=== PATIENT | female | born 1940 | race Caucasian/White ===

== ENCOUNTER → 2023-11-12 07:47 | Outpatient (REF) | payer OTHER, SELFPAY | LOC: PET 07:47 | PROVIDERS: ATTENDING PHYSICIAN Internal Medicine Hematology & Oncology | DX: C85.91 Non-Hodgkin lymphoma, unspecified, lymph nodes of head, face, and neck (principal) | CPT/HCPCS: 78815; A9552 ==

== ENCOUNTER → 2024-01-12 10:36 | Outpatient (REF) | payer OTHER, SELFPAY | LOC: HWRAD 10:36 | PROVIDERS: ATTENDING PHYSICIAN Otolaryngology; FAMILY PHYSICIAN Internal Medicine | DX: J32.0 Chronic maxillary sinusitis (principal) | CPT/HCPCS: 70486 ==

== ENCOUNTER → 2024-03-31 09:55 | Outpatient (REF) | payer OTHER, SELFPAY ==
[2024-03-31 13:03] LABS: % Basophils 0.5 % (0-2); % Eosinophils 2.2 % (0-6); % Immature Granulocytes 0.2 % (0-0.5); % Lymphocytes 17.4 % (20.5-51.1); % Monocytes 7.2 % (1.7-9.3); % Neutrophils 72.5 % (42.2-75.2); Absolute Eosinophils 0.1 10^3/uL (0-0.7); Absolute Monocytes 0.4 10^3/uL (0.1-0.6); Absolute Neutrophils 4.3 10^3/uL (1.4-6.5); Hematocrit 36.9 % (37.0-47.0); Hemoglobin 11.7 g/dL (12.0-16.0); Mean Corp Hgb Conc. 31.7 g/dL (33.0-37.0); Mean Corpuscular Hgb 28.1 pg (27.0-31.0); Mean Corpuscular Volume 88.7 fL (81.0-99.0); Mean Platelet Volume 10.9 fL (7.4-10.4); Nucleated Red Blood Cells % 0 %; Platelet Count 202 10^3/uL (130-400); Red Blood Cell Count 4.16 10^6/uL (4.20-5.40); Red Cell Dist. Width 14.1 % (11.5-14.5)
[2024-03-31 13:21] LABS: ALT (SGPT) 20 U/L (0-35); AST (SGOT) 25 U/L (14-36); Albumin 3.9 g/dl (3.5-5.0); Alkaline Phosphatase 132 U/L (38-126); Blood Urea Nitrogen 18 mg/dl (7-17); Carbon Dioxide 29 mmol/L (22-30); Chloride 102 mmol/L (98-107); Glucose 87 mg/dl (70-99); LDH 184 U/L (120-246); Potassium 4.5 mmol/L (3.5-5.1); Sodium 137 mmol/L (135-145); Total Bilirubin 0.4 mg/dl (0.2-1.3); Total Protein 6.4 g/dl (6.3-8.2); Uric Acid 4.6 mg/dl (2.5-6.2); eGFR > 60.00
== END ==
LOC: HWLAB 09:55
PROVIDERS: ATTENDING PHYSICIAN Internal Medicine Hematology & Oncology; FAMILY PHYSICIAN Internal Medicine
DX: C85.91 Non-Hodgkin lymphoma, unspecified, lymph nodes of head, face, and neck (principal); D64.81 Anemia due to antineoplastic chemotherapy
CPT/HCPCS: 36415; 80053; 83615; 84550; 85025

== ENCOUNTER → 2024-06-10 10:44 | Outpatient (REF) | payer OTHER, SELFPAY | LOC: PAVMRI 10:44 | PROVIDERS: ATTENDING PHYSICIAN Psychiatry & Neurology Neurology; FAMILY PHYSICIAN Internal Medicine | DX: R51.9 Headache, unspecified (principal); G50.0 Trigeminal neuralgia | CPT/HCPCS: 70544; 70549; 70553; A9585 ==

== ENCOUNTER → 2024-06-28 09:40 | Outpatient (REF) | payer OTHER, SELFPAY ==
[2024-06-28 11:53] LABS: % Basophils 0.4 % (0-2); % Eosinophils 2.3 % (0-6); % Immature Granulocytes 0.4 % (0-0.5); % Lymphocytes 16.2 % (20.5-51.1); % Monocytes 6.3 % (1.7-9.3); % Neutrophils 74.4 % (42.2-75.2); Absolute Eosinophils 0.1 10^3/uL (0-0.7); Absolute Lymphocytes 0.9 10^3/uL (1.2-3.4); Absolute Monocytes 0.3 10^3/uL (0.1-0.6); Absolute Neutrophils 3.9 10^3/uL (1.4-6.5); Hematocrit 36.5 % (37.0-47.0); Hemoglobin 12.2 g/dL (12.0-16.0); Mean Corp Hgb Conc. 33.4 g/dL (33.0-37.0); Mean Corpuscular Hgb 27.4 pg (27.0-31.0); Mean Corpuscular Volume 81.8 fL (81.0-99.0); Mean Platelet Volume 10.9 fL (7.4-10.4); Nucleated Red Blood Cells % 0 %; Platelet Count 217 10^3/uL (130-400); Red Blood Cell Count 4.46 10^6/uL (4.20-5.40); White Blood Cell Count 5.3 10^3/uL (4.8-10.8)
[2024-06-28 12:12] LABS: ALT (SGPT) 21 U/L (0-35); AST (SGOT) 25 U/L (14-36); Alkaline Phosphatase 143 U/L (38-126); Blood Urea Nitrogen 13 mg/dl (7-17); Calcium 9.3 mg/dl (8.4-10.2); Carbon Dioxide 26 mmol/L (22-30); Chloride 98 mmol/L (98-107); Glucose 95 mg/dl (70-99); HDL Cholesterol 72 mg/dl; LDL Cholesterol, Calculated 105 mg/dl; Potassium 4.4 mmol/L (3.5-5.1); Sodium 135 mmol/L (135-145); Total Bilirubin 0.5 mg/dl (0.2-1.3); Total Cholesterol 198 mg/dl (50-199); Total Protein 6.3 g/dl (6.3-8.2); Triglyceride 105 mg/dl (10-149); Very Low Density Lipoprotein 21 mg/dl (0-30); eGFR > 60.00
[2024-06-28 12:19] LABS: Total Thyroxine 7.55 ug/dl (5.5-11.0)
[2024-06-28 12:32] LABS: TSH 2.25 uIU/ml (0.47-4.68)
== END ==
LOC: HWLAB 09:40
PROVIDERS: ATTENDING PHYSICIAN Psychiatry & Neurology Neurology; FAMILY PHYSICIAN Internal Medicine
DX: I65.21 Occlusion and stenosis of right carotid artery (principal); C85.90 Non-Hodgkin lymphoma, unspecified, unspecified site; M54.2 Cervicalgia; I10 Essential (primary) hypertension; E03.9 Hypothyroidism, unspecified
CPT/HCPCS: 36415; 80053; 80061; 84436; 84443; 85025

== ENCOUNTER 2024-08-05 23:24 | Inpatient (IN) | payer OTHER, SELFPAY ==
[2024-08-05 19:31] VITALS: BP 203/111
--- NOTE | 2024-08-05 19:56 | ED.GENMED ---
History of Present Illness
General
Chief Complaint: Headache
Time Seen by Provider: 08/05/24 19:46
History of Present Illness
History of Present Illness:
84-year-old female with history of migraines presents to the emergency department for evaluation of a severe migraine headache that began last night and gradually worsened today. She has had nausea and vomiting as well. Vomiting is atypical for
her normal migraines. Took ibuprofen last night without relief. No fevers or chills, denies neck pain, chest pain, or shortness of breath. Did take 2 doses of triamterene/hydrochlorothiazide this week due to leg swelling.
Past History
Past History
ED Past Medical History: HTN; Negative Hypercholesterolemia or IDDM
ED Past Surgical History: Negative Cardiac, or Gynecological
Social History
Tobacco: Non-smoker
Alcohol: None
Drug: None
Personal:
Living: with family
Employment: Not employed
Family History
Family History: Hypertension
Review of Systems
Review of Systems
Allergies reviewed?: Yes
All Other Systems: ROS reviewed and negative except as documented in HPI and ROS
Phy Exam
Physical Exam
Physical Exam:
GEN: Well appearing, NAD, WDWN
HEENT: Oral mucosa moist, no scleral icterus, no nasal congestion
Cardiac: Regular rate
Lung: No respiratory distress, no tachypnea
MSK: No gross deformity or injuries
Skin: Good color, no pallor or jaundice, no rashes
Neuro: AO x3; CN II-XII grossly intact. BUE strength 5/5 in all light, sensation intact and symmetric. BLE strength 5/5 in all light, sensation intact and symmetric
Psych: Calm, cooperative
Course
Orders/Labs/Results
Orders:
Orders
08/05/24 19:55
CT Head W/o Iv Contrast Urgent
Comment:
Reason For Exam: headache
Ketorolac [Toradol] 15 mg IV NOW STA
Magnesium Sulfate 2 Gram/50 ml [Magnesium Sulfate] 2 gram in 50 ml IV NOW
Metoclopramide [Reglan] 10 mg IV NOW STA
08/05/24 20:15
Complete Blood Count/With Diff Urgent
Comprehensive Metabolic Panel Urgent
Serum Osmolality Urgent
Comment: ADD ON
TSH Reflex To Free T4 Urgent
Comment: ADD ON
08/05/24 21:06
Add On- LAB Urgent
Tests Added?: serum osmolality, TSH w/ reflex
Osmolality, Random Urine Urgent
Date Specimen was Collected: 08/05/24
Time Specimen was Collected: 21:12
Urine Sodium Urgent
Date Specimen was Collected: 08/05/24
Time Specimen was Collected: 21:12
08/05/24 21:07
Urinalysis Reflex To Culture Urgent
Date Specimen was Collected: 08/05/24
Time Specimen was Collected: 21:12
Abnormal Lab Results
08/05/24
20:15
Hgb 11.9 L g/dL
(12.0-16.0)
Hct 32.8 L %
(37.0-47.0)
MCV 75.9 L fL
(81.0-99.0)
Absolute Neuts (auto) 6.8 H 10^3/uL
(1.4-6.5)
Absolute Lymphs (auto) 0.4 L 10^3/uL
(1.2-3.4)
Neutrophils % 89.8 H %
(42.2-75.2)
Lymphocytes % 5.7 L %
(20.5-51.1)
Sodium 117 L* mmol/L
(135-145)
Chloride 79 L mmol/L
(98-107)
Creatinine 0.5 L mg/dL
(0.6-1.0)
Glucose 129 H mg/dl
(70-99)
Alkaline Phosphatase 174 H U/L
(38-126)
08/05/24 20:15
08/05/24 20:15
Vital Signs
Initial and Last Documented VS:
Initial Vital Signs
Temp Pulse Resp BP Pulse Ox
98 F 96 18 203/111 97
08/05/24 19:31 08/05/24 19:31 08/05/24 19:31 08/05/24 19:31 08/05/24 19:31
Last Documented Vital Signs
Temp Pulse Resp BP Pulse Ox
98 F 80 18 203/111 95
08/05/24 19:31 08/05/24 20:15 08/05/24 19:31 08/05/24 19:31 08/05/24 20:15
MDM/Problems Addressed
MDM/Problems Addressed:
84-year-old female presents with severe headache and vomiting. She is found to have severe hyponatremia which is likely due to in part to her use of diuretics earlier in the week. No other medications that would suggest an SIADH otherwise, no
history to suggest polydipsia, she denies EtOH use. Case discussed with nephrology, recommend hypertonic saline if urine osmol is normal or elevated. Will admit to the hospitalist service for further management
*Critical Care Note
Total Time (30-74mins, 75-104mins- exclusive of procedures): Not Applicable
ED Attending Note
-
Portions of this chart may have been created with voice recognition software.� Occasional wrong word or��sound alike� substitutions may have occurred due to the inherent limitations of voice recognition software.
Discharge Plan
Departure
Patient Disposition: Admit
Date of Disposition: 08/05/24
Time of Disposition: 21:47
Admit to: IMU
Presentation/result/management discussed w/ accepting MD/DO: Hospitalist
Discharge Problem:
Acute hyponatremia
Prescriptions:
No Action
doxepin 50 MG capsule
125 mg PO DAILY
tramadol-acetaminophen 1 EACH tablet
1 ea PO PRN PRN (Reason: pain)
zolpidem 5 MG tablet
5 mg PO HSPRN PRN (Reason: sleep)
cholecalciferol (vitamin D3) [Vitamin D3] 400 UNIT capsule
125 mg PO .WEEKLY
cetirizine [All Day Allergy (cetirizine)] 10 MG tablet
10 mg PO DAILY
sennosides-docusate sodium [Senna-S] 1 EACH tablet
2 ea PO DAILY
aspirin [Aspir-Low] 81 MG tablet,delayed release (DR/EC)
81 mg PO DAILY
ibuprofen [Advil] 200 MG tablet
400 mg PO PRN PRN (Reason: pain)
Referrals:
Wilfrido Geller MD [Family Provider] -
Interventions
Interventions:
*Risk Screen - Suicide Last Done: 08/05/24 20:07
*General Assessment Last Done: 08/05/24 20:07
*Neglect/Abuse Screening Last Done: 08/05/24 20:07
*ED COVID-19 Vaccine History Last Done: 08/05/24 20:07
ED- Neurological Assessment Last Done: 08/05/24 20:21
Discharge Date and Time
Print Language: YORUBA
[2024-08-05] MEDS: REGLAN 10 MG IV (20:08)
[2024-08-05] MEDS: MAGNESIUM SULFATE 50 IV (20:08)
[2024-08-05 20:24] VITALS: BP 170/98
[2024-08-05 20:27] LABS: % Basophils 0.4 % (0-2); % Eosinophils 0.3 % (0-6); % Immature Granulocytes 0.4 % (0-0.5); % Lymphocytes 5.7 % (20.5-51.1); % Monocytes 3.4 % (1.7-9.3); % Neutrophils 89.8 % (42.2-75.2); Absolute Lymphocytes 0.4 10^3/uL (1.2-3.4); Absolute Monocytes 0.3 10^3/uL (0.1-0.6); Absolute Neutrophils 6.8 10^3/uL (1.4-6.5); Hematocrit 32.8 % (37.0-47.0); Hemoglobin 11.9 g/dL (12.0-16.0); Mean Corp Hgb Conc. 36.3 g/dL (33.0-37.0); Mean Corpuscular Hgb 27.5 pg (27.0-31.0); Mean Corpuscular Volume 75.9 fL (81.0-99.0); Mean Platelet Volume 9.5 fL (7.4-10.4); Nucleated Red Blood Cells % 0 %; Platelet Count 200 10^3/uL (130-400); Red Blood Cell Count 4.32 10^6/uL (4.20-5.40); Red Cell Dist. Width 13.5 % (11.5-14.5); White Blood Cell Count 7.6 10^3/uL (4.8-10.8)
[2024-08-05 20:57] LABS: ALT (SGPT) 24 U/L (0-35); AST (SGOT) 30 U/L (14-36); Albumin 4.3 g/dl (3.5-5.0); Alkaline Phosphatase 174 U/L (38-126); Blood Urea Nitrogen 9 mg/dl (7-17); Calcium 8.5 mg/dl (8.4-10.2); Carbon Dioxide 24 mmol/L (22-30); Chloride 79 mmol/L (98-107); Glucose 129 mg/dl (70-99); Potassium 3.9 mmol/L (3.5-5.1); Sodium 117 mmol/L (135-145); Total Bilirubin 0.8 mg/dl (0.2-1.3); Total Protein 6.9 g/dl (6.3-8.2); eGFR > 60.00
[2024-08-05 21:45] LABS: Osmolality Serum 243 mOsm/kg (275-300)
[2024-08-05 21:49] VITALS: BP 157/81
--- NOTE | 2024-08-05 21:50 | HPS.HSE ---
Family Physician
-
Family Physician: Wilfrido Geller
Chief Complaint
-
Headache
History of Present Illness
Patient is a 84-year-old female with past medical history significant of hypertension and migraines presented to [facility] ED for evaluation of severe migraine headache that started last night and has progressively gotten worse throughout today.
Her migraine is associated with nausea and vomiting, which is common with her migraines. Patient attempted ibuprofen last night and was ineffective. Patient denies any fever, chills, chest pain, shortness of breath, back/neck pain, constipation,
diarrhea or urinary symptoms.
Medical History
Past Medical History
Past Medical History: Reports Other
Additional Past Medical History:
Hypertension
Migraines
Anxiety/depression
Past Surgical History: Reports Other
Additional Past Surgical History:
Hernia repair
Social History
Tobacco: Non-smoker
Alcohol: None
Drug: None
Personal: Single
Living: Alone
Employment: Retired
Family History
Family History: Not pertinent
Allergies / Home Medications
Allergies reflects when Allergies were last updated in [facility].
Home Medications with original date entered in [facility]
Allergy/Medication List:
Allergies
Allergy/AdvReac Type Severity Reaction Status Date / Time
No Known Drug Allergies Allergy - Verified 07/29/16 14:55
hayfever & spring allergies Allergy sneezing, Uncoded 07/29/16 14:55
watery eyes
Home Medications
cetirizine 10 mg tablet (All Day Allergy (cetirizine)) 10 mg PO DAILY 01/09/22
ibuprofen 200 mg tablet (Advil) 400 mg PO Q6HPRN PRN mild pain 01/09/22
sennosides 8.6 mg-docusate sodium 50 mg tablet (Senna-S) 2 ea PO DAILY 01/09/22
Occipital Block Injection 1 dose IM MONTHLY 08/05/24
cyclosporine 0.05 % eye drops in a dropperette (Restasis) 1 drp BOTH EYES BID 08/05/24
doxepin 100 mg capsule 100 mg PO HS 08/05/24
ergocalciferol (vitamin D2) 1,250 mcg (50,000 unit) capsule 1,250 mcg PO SA 08/05/24
famotidine 40 mg tablet 40 mg PO DAILY 08/05/24
metronidazole 0.75 % topical cream 1 applic topical DAILYPRN PRN flare up on face 08/05/24
pregabalin 25 mg capsule 25 mg PO TID 08/05/24
tramadol 50 mg tablet 50 mg PO Q8HPRN PRN moderate pain 08/05/24
triamterene 37.5 mg-hydrochlorothiazide 25 mg capsule 1 cap PO TUTH 08/05/24
Review of Systems
-
History Source: Patient
Constitutional: Reports No Symptoms
EENT: Reports No Symptoms
Respiratory: Reports No Symptoms
Cardiac: Reports No Symptoms
Abdomen/GI: Reports Nausea and Vomiting
: Reports No Symptoms
Musculoskeletal: Reports Edema (bilateral lower extremity )
Skin: Reports No Symptoms
Neurological: Reports Headache
Endocrine: Reports No Symptoms
Hematologic/Lymphatic: Reports No Symptoms
Psych: Reports No Symptoms
Physical Exam
Vital Signs
Vital Signs
Temp Pulse Resp BP Pulse Ox
98 F 80 18 203/111 95
08/05/24 19:31 08/05/24 20:15 08/05/24 19:31 08/05/24 19:31 08/05/24 20:15
Physical Exam
General: Well Developed, Well Nourished, No Apparent Distress, Comfortable, Conversant and Pain (migraine headache 05/21)
HEENT: NormoCephalic, Moist mucous membranes, Atraumatic, PERRLA, [place] Conjunctivae, Nose Appears Normal and Ears Appear Normal
Respiratory: Clear and Non Labored Respirations; No Wheezes, Rales, Rhonchi or Crackles
Cardiac: S1/S2 and Regular Rhythm; No Murmur or Rub
GI: Soft, Non Tender, Non Distended and Normal Bowel Sounds; No Organomegaly
Rectal: Deferred by Provider
Genito-urinary: Deferred by me
Musculoskeletal: No Clubbing, No Cyanosis, Edema, Left Lower Extremity and Edema, Right Lower Extremity; No Edema, Left Upper Extremity or Edema, Right Upper Extremity
Skin: No Rash
Neuro: Awake, Alert, AO x 3 and Nonfocal/grossly intact
Hematologic/Lymphatic: No Lymphadenopathy
Psych: Calm and Intact Judgment/Insight
Laboratory Results
-
08/05/24 20:15
08/05/24 20:15
Laboratory Results
Total Bilirubin 0.8 mg/dl (0.2-1.3) 08/05/24 20:15
AST 30 U/L (14-36) 08/05/24 20:15
ALT 24 U/L (0-35) 08/05/24 20:15
Alkaline Phosphatase 174 U/L (38-126) H 08/05/24 20:15
Data Reviewed
-
CT Scan: Report Reviewed by me (Head CT: No acute intracranial abnormality noted.)
Lab Data: Labs Reviewed by me (Na+ 117, alk phos 174, )
Impression/Plan
-
IMPRESSION/PLAN:
#Symptomatic Hyponatremia
#SIADH r/t migraine vs. Migraine r/t hyponatremia
#hyponatremia r/t HCTZ?
- Admit to IMU
- Consult Nephrology
- Urine Osmo and Urine Sodium pending
- 3% saline
- Check BMP q4h, Na+ goal tonight 122
#Hypertension
- PRN Labetalol for SBP >165 DBP > 110
- hold triamterene-hydrochlorothiazide
#Anxiety/depression
- continue doxepin, pregabalin
#Migraines
- PRN Toradol, Reglan, Magnesium
#GERD
- continue famotidine
Full Code
DVT Prophylaxis: SQ Heparin
[2024-08-05] MEDS: TORADOL 15 MG IV (21:51)
[2024-08-05 22:00] VITALS: BP 169/79
[2024-08-05 22:11] LABS: Osmolality Urine 332 mOsm/kg (300-900)
[2024-08-05 22:12] LABS: Urine Albumin Negative (Neg - Trace); Urine Bilirubin Negative (Negative); Urine Character Clear (Clear); Urine Color Yellow; Urine Glucose 1+ (Negative); Urine Ketone 2+ (Negative); Urine Leukocyte Negative (Negative); Urine Nitrite Negative (Negative); Urine Occult Blood Negative (Negative); Urine Urobilinogen Negative (Neg - 1+)
[2024-08-05 22:21] LABS: TSH Reflex To Free T4 1.68 uIU/ml (0.47-4.68)
[2024-08-05 22:24] LABS: Urine Sodium 126 mmol/L (30-90)
--- NOTE | 2024-08-05 22:25 | W.PN.UPDATE ---
Update Note
Progress Note Update
This note serves as an addendum to the H&P by foreclosure paralegal ODESSA Vee
HPI
84F HX HTN on Triamterene/ HCTZ, HX migraines pw evaluation of a severe migraine headache that began last night and gradually worsened today. POSD nausea and vomiting as well. Vomiting is atypical for her normal migraines.
Took ibuprofen last night without relief. Report 2 doses of triamterene/hydrochlorothiazide this week due to leg swelling.
ROS:
Denies fevers or chills
Denies neck pain, chest pain, or shortness of breath.
Denied ETOH
Reviewed VS: afebrile, BP 203/111 --> 167/79 HR 80 RR18 POx 95
PE
Gen: Not toxic looking
HEENT: GRICELDA
Neck: supple
Lungs: CTA
Cor: RRR S1 S2
Abdomen: soft benign exam
[employer] ARCHITECT: AAO3, NFND
MS: b/l trace pitting edema
Psych: normal affect and mood
Data
Hgb 11.9 - baseline low 12s MCV 76
Na 117 ( 135 on 06/28/24)
Cl 79
nl Cr
eGFR > 60
Sr Osm 243
Pending UA
HCT: No acute intracranial abnormality
ASSESSMENT & PLAN
Symptomatic severe hyponatremia with low Sr Osm
SIADH due to migraines vs HAWLEY due to symptomatic hyponatemia
Element of hyponatremia due to HCTZ
- Hold Triamterene/ HCT
- Pending Ur Osm
- agree with 3 % hypertonic saline - to hold if Ur Osm is low per Renal
- BMP q4h
- Renal consulted
HX Migraine somewhat improved after s/p IV Mg 2 gm, s/p IV Toradol and IV Reglan
- cont Migraine cocktail PRN ( PRN IV Toradol, Benadryl and Reglan)
HTN emergency
- IV labetalol PRN for SBP > 165, DBP > 110
DVT Px:LMWH
Full code
IMU
[2024-08-05] MEDS: SODIUM CHLORIDE 3% 250 IV (22:51)
[2024-08-05 23:00] VITALS: BP 152/76
[2024-08-05 23:40] VITALS: BP 143/123
[2024-08-05 23:41] VITALS: BMI 26.6
[2024-08-06] VITALS (17 sets, daily range): BP systolic 131–179; BP diastolic 60–100
[2024-08-06] MEDS: TYLENOL 1000 MG PO (00:34)
[2024-08-06] MEDS: COMPAZINE 5 MG IV ×2 (00:34→16:49)
[2024-08-06 01:10] LABS: Blood Urea Nitrogen 9 mg/dl (7-17); Calcium 8.8 mg/dl (8.4-10.2); Carbon Dioxide 23 mmol/L (22-30); Chloride 80 mmol/L (98-107); Estimated Creatinine Clearance 58 ml/min; Glucose 130 mg/dl (70-99); Potassium 3.6 mmol/L (3.5-5.1); Sodium 117 mmol/L (135-145); eGFR > 60.00
[2024-08-06] MEDS: REGLAN 10 MG IV ×2 (02:13→08:24)
[2024-08-06] MEDS: TORADOL 15 MG IV ×2 (02:14→08:25)
[2024-08-06] MEDS: BENADRYL 12.5 MG IV ×2 (02:15→08:25)
[2024-08-06] MEDS: ULTRAM 50 MG PO ×3 (04:38→19:54)
[2024-08-06 05:20] LABS: Hematocrit 35.7 % (37.0-47.0); Hemoglobin 12.9 g/dL (12.0-16.0); Mean Corp Hgb Conc. 36.1 g/dL (33.0-37.0); Mean Corpuscular Hgb 28.4 pg (27.0-31.0); Mean Corpuscular Volume 78.5 fL (81.0-99.0); Mean Platelet Volume 10.2 fL (7.4-10.4); Platelet Count 226 10^3/uL (130-400); Red Blood Cell Count 4.55 10^6/uL (4.20-5.40); Red Cell Dist. Width 13.3 % (11.5-14.5); White Blood Cell Count 8.7 10^3/uL (4.8-10.8)
[2024-08-06 05:40] LABS: Blood Urea Nitrogen 10 mg/dl (7-17); Calcium 8.8 mg/dl (8.4-10.2); Carbon Dioxide 22 mmol/L (22-30); Chloride 82 mmol/L (98-107); Estimated Creatinine Clearance 58 ml/min; Glucose 121 mg/dl (70-99); Potassium 3.9 mmol/L (3.5-5.1); Sodium 120 mmol/L (135-145); eGFR > 60.00
--- NOTE | 2024-08-06 05:44 | PTCARENOTE ---
Pt admitted to IMU. AAOx3 forgetful at times. [place] and anxious. Daughter at bedside. NSR in the monitor. Shallow breathing diminished at the bases, SaO2 96% RA. Pt had urgency and frequency to urinate. Pt was bladder scan post void and had 400 ml. Pt
was straight cath. Pt continues to c/o headache and nausea. Call loomis within reach and will continue w/ tx plan
[2024-08-06] MEDS: TRANDATE 10 MG IV ×2 (06:29→12:28)
[2024-08-06] MEDS: HEPARIN 5000 UNITS SC ×2 (08:26→19:53)
[2024-08-06] MEDS: RESTASIS 0.05% OPHTHALMIC EMULSION 1 DROPS BOTH EYES (08:31)
[2024-08-06] MEDS: FLUSH (NSS) 1 FLUSH IV ×2 (08:33→16:54)
[2024-08-06 09:44] LABS: Blood Urea Nitrogen 10 mg/dl (7-17); Calcium 8.8 mg/dl (8.4-10.2); Carbon Dioxide 25 mmol/L (22-30); Chloride 83 mmol/L (98-107); Estimated Creatinine Clearance 58 ml/min; Glucose 146 mg/dl (70-99); Potassium 3.7 mmol/L (3.5-5.1); Sodium 120 mmol/L (135-145); eGFR > 60.00
[2024-08-06] MEDS: LYRICA 25 MG PO ×3 (11:08→21:37)
--- NOTE | 2024-08-06 11:44 | W.CON.NEPH ---
Medical History
-
Chief Complaint: HAWLEY
History of Present Illness:
84-year-old female with past medical history significant for migraines, trigeminal neuralgia of left face on Lyrica, right carotid art stenosis on ASA, left ICA aneurysm 3mm for f/u MRI in [address] Parker at presented to [facility] ED
for evaluation of severe migraine headache that started 3days ago and has progressively gotten worse throughout yesterday.. Her migraine is associated with nausea and vomiting, which is common with her migraines, she reports having HAWLEY daily of
different forms. Patient attempted ibuprofen last night and was ineffective. Patient denies any fever, chills, chest pain, shortness of breath, diarrhea or urinary symptoms. Reportedly she started on HCTZ/triamterene twice weekly for lymphedema
since spring. Her last sodium in Sep was normal range. On arrival to ER yesterday noted to have sodium 117, SBP 200 range. She was started on 3% saline sodium upto 120 this am.BP are better in 160-170 range. She continues to have HAWLEY. vomited
yesterday none today. no nausea. Most of the history is obtained from daughter as pt has WIYOT. She reports not drinking too much of liquids normally.
She had non Hodgkin lymphoma that resulted in left facial pain and bilat LE lymphedema from h/o hysterectomy from endometrial cancer.
Past Medical History
Migraines
Anxiety/depression
Arthritis
sleep apnea
SZ 1995
Non hodgkins lymphoma age of 76 s/p chemorad
Endometrial cancer 2009
melanoma of face s/p mohs surg
osteopenia
Right carotid art stenosis
cerviclagia-neck
GERDTrigeminal neuralgia
left ICA aneurysm 3mm
Past Surgical History: Other (hernia repair, JASON 2009, mohs surg 2018)
Social History
Tobacco: Non-Smoker
Alcohol: None
Personal:
Family History
Family History: Not Pertinent
Allergies / Home Medications
Allergy/AdvReac Type Severity Reaction Status Date / Time
No Known Drug Allergies Allergy - Verified 07/29/16 14:55
hayfever & spring allergies Allergy sneezing, Uncoded 07/29/16 14:55
watery eyes
�Medication �Instructions �Recorded �Confirmed �Type
cetirizine 10 mg tablet (All Day 10 mg PO DAILY Allergies 01/09/22 08/05/24 History
Allergy (cetirizine))
ibuprofen 200 mg tablet (Advil) 400 mg PO Q6HPRN PRN mild pain 01/09/22 08/05/24 History
sennosides 8.6 mg-docusate sodium 2 ea PO DAILY Constipation 01/09/22 08/05/24 History
50 mg tablet (Senna-S)
Occipital Block Injection 1 dose IM MONTHLY migraines 08/05/24 08/05/24 History
cyclosporine 0.05 % eye drops in a 1 drp BOTH EYES BID Eye Condition 08/05/24 08/05/24 History
dropperette (Restasis)
doxepin 100 mg capsule 100 mg PO HS Depression 08/05/24 08/05/24 History
ergocalciferol (vitamin D2) 1,250 1,250 mcg PO SA Supplement 08/05/24 08/05/24 History
mcg (50,000 unit) capsule
famotidine 40 mg tablet 40 mg PO DAILY Gastrointestinal 08/05/24 08/05/24 History
Issue
metronidazole 0.75 % topical cream 1 applic topical DAILYPRN PRN 08/05/24 08/05/24 History
flare up on face
pregabalin 25 mg capsule 25 mg PO TID neuropathic pain 08/05/24 08/05/24 History
tramadol 50 mg tablet 50 mg PO Q8HPRN PRN moderate pain 08/05/24 08/05/24 History
triamterene 37.5 1 cap PO TUTH Blood Pressure 08/05/24 08/05/24 History
mg-hydrochlorothiazide 25 mg
capsule
Review of Systems
-
all complete 12 point ROS have been inquired and found negative other than stated in HPI
Physical Exam
Vital Signs
Vital Signs
Temp Pulse Resp BP Pulse Ox
97.8 F 77 12 179/90 98
08/06/24 07:30 08/06/24 08:10 08/06/24 08:10 08/06/24 08:10 08/06/24 08:10
Lab Results
WBC 8.7 10^3/uL (4.8-10.8) 08/06/24 04:37
RBC 4.55 10^6/uL (4.20-5.40) 08/06/24 04:37
Hgb 12.9 g/dL (12.0-16.0) 08/06/24 04:37
Hct 35.7 % (37.0-47.0) L 08/06/24 04:37
Plt Count 226 10^3/uL (130-400) 08/06/24 04:37
eGFR > 60.00 08/06/24 09:22
Albumin 4.3 g/dl (3.5-5.0) 08/05/24 20:15
Abnormal Lab Results
08/05/24 08/05/24 08/06/24
20:15 21:50 00:15
Hgb 11.9 L
Hct 32.8 L
MCV 75.9 L
Absolute Neuts (auto) 6.8 H
Absolute Lymphs (auto) 0.4 L
Neutrophils % 89.8 H
Lymphocytes % 5.7 L
Sodium 117 L* 117 L*
Chloride 79 L 80 L
Creatinine 0.5 L 0.5 L
Glucose 129 H 130 H
Serum Osmolality 243 L
Alkaline Phosphatase 174 H
Urine Ketones 2+ A
Urine Sodium 126 H
Urine Glucose 1+ A
08/06/24 08/06/24
04:37 09:22
Hgb
Hct 35.7 L
MCV 78.5 L
Absolute Neuts (auto)
Absolute Lymphs (auto)
Neutrophils %
Lymphocytes %
Sodium 120 L 120 L
Chloride 82 L 83 L
Creatinine
Glucose 121 H 146 H
Serum Osmolality
Alkaline Phosphatase
Urine Ketones
Urine Sodium
Urine Glucose
CT head:
IMPRESSION:
No acute intracranial abnormality noted.
Physical Exam
General: Awake, Alert, Oriented, AOx3, No Distress and Nontoxic
HEENT: EOMI, Anicteric, Conjunctivae Clear and No JVD
Respiratory: Clear, Normal Excursion and Nonlabored Respirations
Cardiac: S1/S2 and Regular Rate/Rhythm
Breast: Deferred by me
Abdomen: Soft, Nontender and Nondistended
Musculoskeletal: No Cyanosis and Edema (1+)
Skin: No Rash, Warm and Normal Turgor
Neuro: Nonfocal/Grossly Intact
Psych: Appropriate
Data Reviewed
-
Labs: Labs Reviewed by me, Discussed with Patient and Discussed with Family
Assessment/Plan
-
IMP:
Hyponatremia
HTN
Migraines
Anxiety/depression
Non hodgkins lymphoma age of 76 s/p chemorad
Endometrial cancer 2010 s/p JASON
bilat LE lymphedema
melanoma of face s/p mohs surg
osteopenia
Right carotid art stenosis
cervicalgia-neck
GERD
Trigeminal neuralgia
left ICA aneurysm 3mm MRA 05/2024
Arthritis
sleep apnea
SZ 1995
chr maxillary sinusitis CT noted 01/2024
Plan:
A/w worsening HS with known migraine
Hyponatremia -ADH mediated-likely from pain, U osmo of 332, U na high on diuretics
cont 3% saline with goal of correction 6-8meq/day , increase rate to 30cc/hr
stay off HCTZ/triamterene, if needed will use lasix
FR 40 ounces/day, no samsca yet
goal of sodium tonight at 125-127
BP are high, likely start CCB or BB specially with migraines -d/w primary
pain control, avoid NSAIDs -as it can impair free water excretion
suggest neuro consult with complex neuro history
family insists to check cortisol, though I do not suspect specially with high Bps
TSH was normal
q4h sodium checks
d/w pt and family in detail
d/w nursing and primary
[2024-08-06 12:44] LABS: Blood Urea Nitrogen 10 mg/dl (7-17); Calcium 8.9 mg/dl (8.4-10.2); Carbon Dioxide 23 mmol/L (22-30); Chloride 85 mmol/L (98-107); Estimated Creatinine Clearance 58 ml/min; Glucose 110 mg/dl (70-99); Potassium 3.7 mmol/L (3.5-5.1); Sodium 122 mmol/L (135-145); eGFR > 60.00
[2024-08-06] MEDS: INDERAL 10 MG PO ×2 (13:28→19:54)
--- NOTE | 2024-08-06 14:36 | W.PN.HOSP.TC ---
Today's Communication/Plan
-
Assessment / Plan
Assessment / Plan
Imaging
CTBrain
IMPRESSION:
No acute intracranial abnormality noted.
Physical Exam
NAD, resting comfortably in bed
Scleral anicteric
Moist mucous membranes
No JVD
CTA bilateral
Normal S1-S2 no murmurs
Soft nontender nondistended bowel sounds active
Edema +1 b/l le
Moves extremities spontaneously
AAOx3
Assessment and Plan
Severe Migraines
-Started compazine and propanolol per oncall neuro recs as reglan/benadryl/toradol was not helping
-Unable to provide triptans until BP improves
-CTBrain as above
Hyponatremia
-SIADH and on HCTZ
-3% hypertonic saline
-HCTZ held indefinetly
-Neph followinh
Hypertension
-HCTZ and triametrene at home, has been held in the setting of hyponatremia
-Started propanolol and will add low dose ACEi
Anxiety and depression
-Doxepin and pregabalin
Gerd
-H2 noé continued
Anticipated Discharge: > 48 hours
Subjective/Interval History
-
Date of Service: August 06, 2024
seen and examined
nausea and headaches
daughter at bedside
Objective Data
-
Labs:
Laboratory Results
08/06/24 08/06/24 08/06/24
04:37 09:22 12:24
WBC 8.7
Hgb 12.9
Hct 35.7 L
Plt Count 226
Sodium 120 L 120 L 122 L
Potassium 3.9 3.7 3.7
Chloride 82 L 83 L 85 L
Carbon Dioxide 22 25 23
BUN 10 10 10
Creatinine 0.6 0.6 0.5 L
Glucose 121 H 146 H 110 H
Calcium 8.8 8.8 8.9
Vital Signs:
Vital Signs
Temp Pulse Resp BP Pulse Ox
97.4 F 66 11 165/80 98
08/06/24 11:53 08/06/24 14:00 08/06/24 14:00 08/06/24 14:00 08/06/24 14:00
I&O
08/05/24 08/06/24 08/07/24
06:59 06:59 06:59
Intake Total 480 / 480 480 / 480
Output Total 1450 / 1450 740 / 740
Balance -970 / -970 -260 / -260
--- NOTE | 2024-08-06 15:44 | PTCARENOTE ---
Patient voided 250 mls, bladder scanned patient for 434 mls. Straight catheterized patient for 400 mls clear yellow urine.
[2024-08-06] MEDS: SENOKOT-S 1 TABLET PO (16:47)
[2024-08-06] MEDS: PEPCID PO (16:48)
[2024-08-06] MEDS: ZYRTEC PO (16:49)
--- NOTE | 2024-08-06 17:45 | PTCARENOTE ---
Patient sodium 122. Patient has new bag of 3% saline infusing via left FA at 30 mls/hr. Patient still has HAWLEY rating 8/10. Medicating patient with pain medication as ordered. Also using ice pack on head as tolerated. Nausea seems to be slightly
better. Patient tolerating small amount of food at each meal. No vomiting today. Monitoring patient urine output and retention, bladder scan and straight cath as ordered. BP's continue to be elevated but are better. Daughter in room at bedside.
[2024-08-06 17:46] LABS: Blood Urea Nitrogen 11 mg/dl (7-17); Calcium 9.1 mg/dl (8.4-10.2); Carbon Dioxide 24 mmol/L (22-30); Chloride 84 mmol/L (98-107); Estimated Creatinine Clearance 58 ml/min; Glucose 102 mg/dl (70-99); Potassium 3.8 mmol/L (3.5-5.1); Sodium 122 mmol/L (135-145); eGFR > 60.00
[2024-08-06] MEDS: SODIUM CHLORIDE 3% 250 IV (18:35)
[2024-08-06] MEDS: RESTASIS 0.05% OPHTHALMIC EMULSION BOTH EYES (19:57)
--- NOTE | 2024-08-06 21:00 | W.[place]-PDMP ---
[place]-PD[place]
-
Checked the [place]- Prescription Drug Monitoring Program website, no red flags identified; safe to proceed with prescription.
pt has script for ambien 10mg hs prn. (will cut in half). PDMP checked. last fill in jun 2024 #90.
Will order 5mg prn
[2024-08-06] MEDS: SINEQUAN 100 MG PO (21:37)
[2024-08-06 22:01] LABS: Blood Urea Nitrogen 16 mg/dl (7-17); Calcium 8.7 mg/dl (8.4-10.2); Carbon Dioxide 23 mmol/L (22-30); Chloride 87 mmol/L (98-107); Estimated Creatinine Clearance 58 ml/min; Glucose 98 mg/dl (70-99); Potassium 3.5 mmol/L (3.5-5.1); Sodium 123 mmol/L (135-145); eGFR > 60.00
[2024-08-07] VITALS (23 sets, daily range): BP systolic 59–165; BP diastolic 33–99; BMI 25.4
--- NOTE | 2024-08-07 | PTCARENOTE ---
AAOx3, anxious and forgetful at times. [place]. Daughter at bedside. 3% Na done infusion. AIRCRAFT STRUCTURAL FITTER was notified for blood work. Minimal nausea. SBP <165. continues to c/o headaches but more under control. Pt slept for a few hrs. NSR in the monitor. Lung
sounds are diminished at the bases. SaO2 96%. Pt had difficulty urinated, bladder scan >400. Burrell catheter placed RA. Call loomis within reach
--- NOTE | 2024-08-07 03:35 | VATNOTE ---
VAT paged to restart PIV and draw labs. Once at bedside Primary RN stated patient had an infiltrate in the left arm of 3% sodium. Heat was already being applied and arm elevated. Primary RN contacted pharmacy for antidote. Infiltrate measures 17cm X
9cm. Awaiting medication from pharmacy will administer once received. Will continue to monitor.
[2024-08-07 03:42] LABS: % Basophils 0.1 % (0-2); % Eosinophils 1.9 % (0-6); % Immature Granulocytes 0.6 % (0-0.5); % Lymphocytes 12.2 % (20.5-51.1); % Monocytes 7.5 % (1.7-9.3); % Neutrophils 77.7 % (42.2-75.2); Absolute Eosinophils 0.1 10^3/uL (0-0.7); Absolute Lymphocytes 0.9 10^3/uL (1.2-3.4); Absolute Monocytes 0.5 10^3/uL (0.1-0.6); Absolute Neutrophils 5.6 10^3/uL (1.4-6.5); Hematocrit 35.5 % (37.0-47.0); Mean Corp Hgb Conc. 36.6 g/dL (33.0-37.0); Mean Corpuscular Hgb 27.4 pg (27.0-31.0); Mean Corpuscular Volume 74.9 fL (81.0-99.0); Mean Platelet Volume 9.7 fL (7.4-10.4); Nucleated Red Blood Cells % 0 %; Platelet Count 258 10^3/uL (130-400); Red Blood Cell Count 4.74 10^6/uL (4.20-5.40); White Blood Cell Count 7.2 10^3/uL (4.8-10.8)
[2024-08-07] MEDS: HYLENEX 150 UNITS SC (03:43)
--- NOTE | 2024-08-07 04:09 | PTCARENOTE ---
Addendum entered by Roberto Jackson RN 08/07/24 04:21:
Infiltrate site recheck and measure 7.5 cmx 145 cm. Will continue w/ tx,
Original Note:
Pt left IV access infiltrated w/ 3% Na. VAT notified and a new line restarted. Antidote order and administer to the site. Will reassess 30 min after administration of medication. Arm elevated.
[2024-08-07 04:33] LABS: Blood Urea Nitrogen 15 mg/dl (7-17); Calcium 8.9 mg/dl (8.4-10.2); Carbon Dioxide 24 mmol/L (22-30); Chloride 90 mmol/L (98-107); Estimated Creatinine Clearance 51 ml/min; Glucose 91 mg/dl (70-99); Potassium 3.6 mmol/L (3.5-5.1); Sodium 128 mmol/L (135-145); eGFR > 60.00
[2024-08-07 05:04] LABS: Cortisol, Random 11.6 ug/dl
[2024-08-07] MEDS: ULTRAM 50 MG PO ×2 (06:32→12:35)
[2024-08-07 07:38] LABS: Sodium 128 mmol/L (135-145)
--- NOTE | 2024-08-07 08:50 | PTCARENOTE ---
PT WITH TREATED LA INFILTRATE FROM EARLY THIS AM. PT REPORTS THAT IT FEELS AND LOOKS MUCH BETTER. REFUSED FURTHER COLD TREATMENT, ARM WAS ELEVATED AT TIME OF ASSESSMENT. WILL CONT TO MONITOR LA
[2024-08-07] MEDS: RESTASIS 0.05% OPHTHALMIC EMULSION 1 DROPS BOTH EYES ×2 (09:26→20:06)
[2024-08-07] MEDS: PEPCID 40 MG PO (09:27)
[2024-08-07] MEDS: HEPARIN 5000 UNITS SC ×2 (09:27→20:06)
[2024-08-07] MEDS: ZYRTEC 10 MG PO (09:27)
[2024-08-07] MEDS: LYRICA 25 MG PO ×3 (09:27→20:15)
[2024-08-07] MEDS: INDERAL 10 MG PO (09:27)
--- NOTE | 2024-08-07 11:46 | W.PN.NEPH.PH ---
Today's Communication / Plan
-
recheck labs later
Assessment/Plan
-
IMP:
Hyponatremia
HTN
Migraines
Anxiety/depression
Non hodgkins lymphoma age of 76 s/p chemorad
Endometrial cancer 2009 s/p JASON
bilat LE lymphedema
melanoma of face s/p mohs surg
osteopenia
Right carotid art stenosis
cervicalgia-neck
GERD
Trigeminal neuralgia
left ICA aneurysm 3mm MRA 05/2024
Arthritis
sleep apnea
SZ 1995
chr maxillary sinusitis CT noted 01/2024
Plan:
A/w worsening HAWLEY with known migraine
Hyponatremia -ADH mediated-likely from pain, U osmo of 332, U na high on diuretics
sodium better now at 128, appropriate correction
repeat labs later if sodium decreasing likely 3% again vs lasix
stay off HCTZ/triamterene
TSH, cortisol were ok
FR 40 ounces/day, no samsca yet
BP are better now as HAWLEY improved. on propranolol per primary after d/w neuro
avoid NSAIDs -as it can impair free water excretion
likely VT in am, non oliguric in vasquez
d/w pt and family in detail
d/w nursing
-
-
Date of Service: August 07, 2024
CC / HPI / ROS
-
Chief Complaint:
hyponatremia
History of Present Illness:
sodium better at 128
BP improving now
no fever, vasquez placed for retention over 400cc
Review of Systems:
no cp or sob
HAWLEY improved
tolerating diet
Labs
-
Labs:
WBC 7.2 10^3/uL (4.8-10.8) 08/07/24 03:27
RBC 4.74 10^6/uL (4.20-5.40) 08/07/24 03:27
Hgb 13.0 g/dL (12.0-16.0) 08/07/24 03:27
Hct 35.5 % (37.0-47.0) L 08/07/24 03:27
Plt Count 258 10^3/uL (130-400) 08/07/24 03:27
Sodium Cancelled 08/07/24 08:00
Potassium 3.6 mmol/L (3.5-5.1) 08/07/24 03:59
Chloride 90 mmol/L (98-107) L 08/07/24 03:59
Carbon Dioxide 24 mmol/L (22-30) 08/07/24 03:59
BUN 15 mg/dl (7-17) 08/07/24 03:59
Creatinine 0.6 mg/dL (0.6-1.0) 08/07/24 03:59
eGFR > 60.00 08/07/24 03:59
Glucose 91 mg/dl (70-99) 08/07/24 03:59
Calcium 8.9 mg/dl (8.4-10.2) 08/07/24 03:59
Albumin 4.3 g/dl (3.5-5.0) 08/05/24 20:15
Physical Exam
-
Vital Signs:
Vital Signs
Temp Pulse Resp BP Pulse Ox
97.8 F 71 12 136/65 98
08/07/24 07:30 08/07/24 09:27 08/07/24 09:25 08/07/24 09:27 08/07/24 09:25
Cardiovascular:: Regular rate and rhythm
Respiratory:: Bilateral: CTA
Lung Excursion:: Normal
Abdomen:: Nontender and Soft
Extremity Edema:: None: Bilateral:
Vasquez Catheter: Yes
--- NOTE | 2024-08-07 13:37 | W.PN.HOSP.TC ---
Today's Communication/Plan
-
Assessment / Plan
Assessment / Plan
Imaging
CTBrain
IMPRESSION:
No acute intracranial abnormality noted.
Physical Exam
NAD, resting comfortably in bed
Scleral anicteric
Moist mucous membranes
No JVD
CTA bilateral
Normal S1-S2 no murmurs
Soft nontender nondistended bowel sounds active
Edema +1 b/l le
Moves extremities spontaneously
AAOx3
Assessment and Plan
Severe Migraines
-Started compazine and propanolol per oncall neuro recs as reglan/benadryl/toradol was not helping
-Unable to provide triptans until BP improves
-CTBrain as above
Hyponatremia
-SIADH and on HCTZ
-3% hypertonic saline; held by nephrology
-HCTZ held indefinetly
-Neph following
-repeat bmp, if Na down then Neph may need to resume 3% or Lasix
Hypertension
-HCTZ and triametrene at home, has been held in the setting of hyponatremia
-Started propanolol and will add low dose ACEi
Anxiety and depression
-Doxepin and pregabalin
Gerd
-H2 noé continued
PT/OT
Anticipated Discharge: 24 - 48 hours
Subjective/Interval History
-
Date of Service: August 07, 2024
seen and examined. no new complaints. no acute overnight events
headache much better
na improving
bp improved
daughter at bedside, update, informed her that she can see her pcp/ent cerumen
-rec if conerned then start debrox
Objective Data
-
Labs:
Laboratory Results
08/07/24 08/07/24 08/07/24
03:27 03:27 03:59
WBC 7.2
Hgb 13.0
Hct 35.5 L
Plt Count 258
Sodium Cancelled Cancelled 128 L
Potassium Cancelled 3.6
Chloride Cancelled 90 L
Carbon Dioxide Cancelled 24
BUN Cancelled 15
Creatinine Cancelled 0.6
Glucose Cancelled 91
Calcium Cancelled 8.9
08/07/24 08/07/24 08/07/24
07:19 08:00 15:00
WBC
Hgb
Hct
Plt Count
Sodium 128 L Cancelled Pending
Potassium
Chloride
Carbon Dioxide
BUN
Creatinine
Glucose
Calcium
Vital Signs:
Vital Signs
Temp Pulse Resp BP Pulse Ox
97.8 F 77 17 103/62 97
08/07/24 07:30 08/07/24 12:00 08/07/24 12:00 08/07/24 12:00 08/07/24 12:00
I&O
08/06/24 08/07/24 08/08/24
06:59 06:59 06:59
Intake Total 480 / 480 1410 / 1410
Output Total 1450 / 1450 3065 / 3065
Balance -970 / -970 -1655 / -1655
--- NOTE | 2024-08-07 15:19 | PTCARENOTE ---
Rec'd pt this AM. Vital signs stable. Pt OOB x1 to bedside chair. family at bedside. Family educated extensively on hospital course, policies and aftercare planning. vasquez draining dark, rosibel, urine. pt educated and complaint on fluid restriction
as well. Call loomis in reach.
[2024-08-07 15:25] LABS: Sodium 123 mmol/L (135-145)
--- NOTE | 2024-08-07 15:48 | CM ---
Alert awake oriented patient who lives alone in a [place] community. It is one story with one step to enter.He has supportive daughters that live near by. He is independent in activities of daily living.He was offered VN he declined need.He has cane
and walker in home.
No VN hx / No SNF history
[facility]
PCP DR Geller
PLAN Will need PT OT evhernando for dc planning.
[2024-08-07] MEDS: SENOKOT-S 1 TABLET PO (16:15)
[2024-08-07] MEDS: SODIUM CHLORIDE 3% 250 IV (17:00)
--- NOTE | 2024-08-07 18:10 | PTCARENOTE ---
Pt Na down to 123. 3% saline infusing as ordered in right wrist.
--- NOTE | 2024-08-07 19:20 | PTCARENOTE ---
Received pt from day shift, aaox3. PALA. Daughter is at bedside. Pt NSR on the monitor. VSS. Mouth care completed. Pt resting in bed with call loomis in reach.
[2024-08-07] MEDS: SINEQUAN 100 MG PO (20:07)
[2024-08-07] MEDS: INDERAL PO (20:15)
[2024-08-07 22:24] LABS: Glucose - Point of Care 140 mg/dl (70-99)
[2024-08-07 22:31] LABS: Sodium 127 mmol/L (135-145)
[2024-08-07] MEDS: NSS 500 IV (22:34)
[2024-08-07 22:57] LABS: % Basophils 0.5 % (0-2); % Eosinophils 3.3 % (0-6); % Immature Granulocytes 0.6 % (0-0.5); % Lymphocytes 18.6 % (20.5-51.1); % Monocytes 11.4 % (1.7-9.3); % Neutrophils 65.6 % (42.2-75.2); Absolute Eosinophils 0.2 10^3/uL (0-0.7); Absolute Lymphocytes 1.2 10^3/uL (1.2-3.4); Absolute Monocytes 0.7 10^3/uL (0.1-0.6); Absolute Neutrophils 4.2 10^3/uL (1.4-6.5); Hematocrit 30.1 % (37.0-47.0); Hemoglobin 10.7 g/dL (12.0-16.0); Mean Corp Hgb Conc. 35.5 g/dL (33.0-37.0); Mean Corpuscular Hgb 27.7 pg (27.0-31.0); Mean Platelet Volume 9.8 fL (7.4-10.4); Nucleated Red Blood Cells % 0 %; Platelet Count 223 10^3/uL (130-400); Red Blood Cell Count 3.86 10^6/uL (4.20-5.40); Red Cell Dist. Width 14.3 % (11.5-14.5); White Blood Cell Count 6.3 10^3/uL (4.8-10.8)
--- NOTE | 2024-08-07 23:05 | W.PN.UPDATE ---
Addendum entered and electronically signed by OSCAR Webber 08/08/24 00:44:
will need to transfer to icu as pt has reached max 8mcg levo gtt as imu allows.
cont 3/[address] peraza did state earlier if we needed that iv line for other meds it can be paused.
Addendum entered and electronically signed by OSCAR Webber 08/08/24 00:15:
ua looks inected -: pos leuks, mod bacteria, many wbc
will start abx- await final culture, sepsis bolus, and start levo gtt at bp did not increase after first bolus.
daughter updated at bedside
Addendum entered and electronically signed by OSCAR Webber 08/08/24 00:13:
addendum to 2200 note BP decreased to 65/38
Original Note:
Update Note
Progress Note Update
1999 notified by RN that bp 95/48 hr 68. previous bp 111/99. will hold evening propanolol.
2200 pt becoming more hypotensive for unclear reasons. No fever. WBC this am normal.
Will initiate septic workup:
lactic
cbc
bmp
repeat ua as pt has needed str cath and vasquez for urine retention
pt is lethargic. will briefly wake up to talk but fall back to sleep. afebrile. will give nss bolus
[2024-08-07 23:09] LABS: NT-proBNP 553 pg/ml
[2024-08-07 23:13] LABS: Urine Albumin Trace (Neg - Trace); Urine Bilirubin Negative (Negative); Urine Character Clear (Clear); Urine Color Yellow; Urine Glucose Negative (Negative); Urine Ketone Negative (Negative); Urine Leukocyte 2+ (Negative); Urine Nitrite Negative (Negative); Urine Occult Blood 2+ (Negative); Urine Urobilinogen Negative (Neg - 1+)
[2024-08-07] MEDS: LEVOPHED 250 IV (23:20)
[2024-08-07 23:31] LABS: Urine Bacteria Moderate (Negative); Urine Hyaline Cast 0-2 /LPF (0-2)
[2024-08-07 23:32] LABS: Urine Calcium Oxalate Crystals Seen
[2024-08-07] MEDS: ROCEPHIN 1000 MG IV (23:44)
[2024-08-07] MEDS: STERILE WATER FOR INJECTION 10 ML IV (23:44)
[2024-08-07] MEDS: NSS 1000 IV (23:45)
[2024-08-07 23:51] LABS: Blood Urea Nitrogen 23 mg/dl (7-17); Calcium 8.6 mg/dl (8.4-10.2); Carbon Dioxide 24 mmol/L (22-30); Chloride 91 mmol/L (98-107); Estimated Creatinine Clearance 30 ml/min; Glucose 88 mg/dl (70-99); Potassium 3.6 mmol/L (3.5-5.1); eGFR 54.87
[2024-08-08] VITALS (55 sets, daily range): BP systolic 61–166; BP diastolic 31–119; PULSE 81; O2SAT 98; BMI 25.8
--- NOTE | 2024-08-08 01:20 | PTCARENOTE ---
pt received from IMU, drowsy but arousable, neuro status improving with time. SBP 150s upon arrival, levo gtt titrated per protocol to obtain MAP goal. pt reoriented, forgetful of prior events in IMU. daughter at bedside and updated. liter bolus
finished upon arrival. SR on monitor, EKG done, afebrile. on 1L NC, denies SOB. diminished lung sounds noted. vasquez emptied for 150ml. call loomis within reach, care ongoing.
--- NOTE | 2024-08-08 01:45 | PTCARENOTE ---
At 1999 bp 95/48 with hr of 68. Reached out to Maria T, CHILDREN'S TUTOR and confirmed to hold evening propranolol. At 22:12 automatic bp reading of 61/33 (MAP 43), hr 67. confirmed with manual bp of 68/38. CHILDREN'S TUTOR notified and 500 mL bolus ordered and started. bp 72/34
after bolus given. CHILDREN'S TUTOR notified and additional bolus and levophed gtt Rx'd (see MAR). Followed protocol and titrated based on MAP (see worklist). CHILDREN'S TUTOR notified that gtt reached 8 mcg/min and pt to be transferred to ICU. Verbal report provided to
EDD Macias. Pt transferred to room 3366 in ICU. All belongings with patient.
--- NOTE | 2024-08-08 03:50 | PTCARENOTE ---
AM labs sent. levo gtt titrated to maintain MAP goal. remains afebrile. call loomis within reach, care ongoing.
[2024-08-08 04:10] LABS: Lactic Acid 0.6 mmol/L (0.7-2.0)
[2024-08-08 04:13] LABS: % Basophils 0.5 % (0-2); % Eosinophils 2.4 % (0-6); % Immature Granulocytes 0.5 % (0-0.5); % Lymphocytes 14.9 % (20.5-51.1); % Monocytes 9.2 % (1.7-9.3); % Neutrophils 72.5 % (42.2-75.2); Absolute Eosinophils 0.2 10^3/uL (0-0.7); Absolute Lymphocytes 1.1 10^3/uL (1.2-3.4); Absolute Monocytes 0.7 10^3/uL (0.1-0.6); Absolute Neutrophils 5.5 10^3/uL (1.4-6.5); Hematocrit 35.7 % (37.0-47.0); Hemoglobin 12.7 g/dL (12.0-16.0); Mean Corp Hgb Conc. 35.6 g/dL (33.0-37.0); Mean Corpuscular Hgb 27.9 pg (27.0-31.0); Mean Corpuscular Volume 78.3 fL (81.0-99.0); Nucleated Red Blood Cells % 0 %; Platelet Count 224 10^3/uL (130-400); Red Blood Cell Count 4.56 10^6/uL (4.20-5.40); Red Cell Dist. Width 14.4 % (11.5-14.5); White Blood Cell Count 7.6 10^3/uL (4.8-10.8)
[2024-08-08 04:30] LABS: INR 1.09
[2024-08-08 04:31] LABS: APTT 28.4 Sec (23.4-35.0)
[2024-08-08 04:38] LABS: Blood Urea Nitrogen 21 mg/dl (7-17); Calcium 8.2 mg/dl (8.4-10.2); Carbon Dioxide 22 mmol/L (22-30); Chloride 102 mmol/L (98-107); Estimated Creatinine Clearance 34 ml/min; Glucose 109 mg/dl (70-99); Magnesium 2.1 mg/dl (1.6-2.3); Phosphorus 3.3 mg/dl (2.5-4.5); Potassium 3.6 mmol/L (3.5-5.1); Sodium 136 mmol/L (135-145); eGFR > 60.00
[2024-08-08 04:45] LABS: Procalcitonin < 0.05 ng/ml (0.0-0.25)
--- NOTE | 2024-08-08 05:53 | W.PN.SEPSIS ---
Sepsis
Vital Signs
Temp Pulse Resp BP Pulse Ox
98 F 72 11 142/55 100
08/08/24 03:21 08/08/24 05:45 08/08/24 05:45 08/08/24 05:45 08/08/24 05:00
Physical Exam
Physical Exam:
A focused exam was performed after fluid resuscitation.
Capillary Refill
Bilateral Upper Extremity:
Baljinder Time: Less than 3 sec
Bilateral Lower Extremity:
Baljinder Time: Less than 3 sec
Pulse Evaluation
Bilateral Radial:
Pulse Evaluation: Present
Bilateral Dorsalis Pedis:
Pulse Evaluation: Present
[2024-08-08] MEDS: RESTASIS 0.05% OPHTHALMIC EMULSION BOTH EYES (07:52)
[2024-08-08] MEDS: ULTRAM 50 MG PO (07:54)
[2024-08-08] MEDS: LYRICA 25 MG PO ×3 (07:56→22:20)
[2024-08-08] MEDS: PEPCID 40 MG PO (07:56)
[2024-08-08] MEDS: ZYRTEC 10 MG PO (07:56)
[2024-08-08] MEDS: HEPARIN 5000 UNITS SC ×3 (08:05→22:21)
[2024-08-08] MEDS: INDERAL PO (08:05)
--- NOTE | 2024-08-08 08:30 | PTCARENOTE ---
Received pt awake and alert.Speech is appropriate.+ALVARADO.c/o frontal and bl temporal h/a.Requested and received Ultram for pain.2 person minimal assist to chair.SR noted.Levophed titrated for MAP 65.Decreased breath sounds bibasilar.POX 96%Appetite
excellent.Burrell draining yellow urine.Skin integrity as documented.Pt's daughter at bedside.Plan of care discussed.
--- NOTE | 2024-08-08 08:52 | W.PN.NEPH.PH ---
Today's Communication / Plan
-
follow BMP
Assessment/Plan
-
IMP:
Hyponatremia
HTN
Migraines
Anxiety/depression
Non hodgkins lymphoma age of 76 s/p chemorad
Endometrial cancer 2009 s/p JASON
bilat LE lymphedema
melanoma of face s/p mohs surg
osteopenia
Right carotid art stenosis
cervicalgia-neck
GERD
Trigeminal neuralgia
left ICA aneurysm 3mm MRA 05/2024
Arthritis
sleep apnea
SZ 1995
chr maxillary sinusitis CT noted 01/2024
Plan:
follow BMP
repeat urine studies in am
voiding trial in am
keep MAP > 65
ok for NSS if needed for BP
no 3% today
d/w daughter
critical care time 31 minutes
-
-
Date of Service: August 08, 2024
CC / HPI / ROS
-
Chief Complaint:
hyponatremia
History of Present Illness:
sodium better at 136 after 3%NaCl 08/07
BP stable on Levophed gtt
critically ill in ICU on pressors
no fevers
vasquez placed for retention over 400cc 08/06
Review of Systems:
no cp or sob
HAWLEY mild
tolerating diet
Labs
-
Labs:
WBC 7.6 10^3/uL (4.8-10.8) 08/08/24 03:46
RBC 4.56 10^6/uL (4.20-5.40) 08/08/24 03:46
Hgb 12.7 g/dL (12.0-16.0) 08/08/24 03:46
Hct 35.7 % (37.0-47.0) L 08/08/24 03:46
Plt Count 224 10^3/uL (130-400) 08/08/24 03:46
Sodium 136 mmol/L (135-145) D 08/08/24 03:46
Potassium 3.6 mmol/L (3.5-5.1) 08/08/24 03:46
Chloride 102 mmol/L (98-107) 08/08/24 03:46
Carbon Dioxide 22 mmol/L (22-30) 08/08/24 03:46
BUN 21 mg/dl (7-17) H 08/08/24 03:46
Creatinine 0.9 mg/dL (0.6-1.0) 08/08/24 03:46
eGFR > 60.00 08/08/24 03:46
Glucose 109 mg/dl (70-99) H 08/08/24 03:46
Calcium 8.2 mg/dl (8.4-10.2) L 08/08/24 03:46
Phosphorus 3.3 mg/dl (2.5-4.5) 08/08/24 03:46
Amw-D-Lfnshrfnqlh Pept 553 pg/ml 08/07/24 20:45
Albumin 4.3 g/dl (3.5-5.0) 08/05/24 20:15
Physical Exam
-
Vital Signs:
Vital Signs
Temp Pulse Resp BP Pulse Ox
98.3 F 62 10 85/49 100
08/08/24 07:55 08/08/24 06:30 08/08/24 06:30 08/08/24 06:30 08/08/24 05:00
Cardiovascular:: Regular rate and rhythm
Respiratory:: Bilateral: Coarse
Lung Excursion:: Normal
Abdomen:: Nontender and Soft
Bowel Sounds:: Normal
Extremity Edema:: None: Bilateral:
--- NOTE | 2024-08-08 09:27 | CM ---
Patient seen at bedside in ICU. Patient daughter present and confirmed that patient had been independent prior to admission and lived alone. Patient plan is for assessment by therapy to clarify discharge needs and family considering SNF pending
patient therapy assessment. patient expressed interest in [facility] but does not want [facility]. CM will continue to follow for discharge planning needs.
Plan; SNF vs home with VN
--- NOTE | 2024-08-08 10:37 | CON.INTV ---
Addendum entered and electronically signed by Marva Garay MD 08/08/24 12:43:
Patient was seen and examined independently by myself. Reviewed below and agree with plans
Briefly, patient is a pleasant 84-year-old female who lives independently. Most history is obtained from the patient and son from the daughter at the bedside. Patient had developed increased headaches, and also developed some nausea/emesis. She
denies any urinary symptoms. Upon arrival to [facility] 08/05, she was found to have a sodium of 117, afebrile, pulse 96, breathing at 18, initial blood pressure 203/111, 97%. Patient was treated for hypertension and hyponatremia.
Patient then developed hypotension, systolic pressure 65. Propranolol was held. Patient was given IV fluids. Patient had required occasional straight catheterization for urinary retention. Patient was transferred to ICU for further management of
suspected sepsis and hypotension requiring pressors. Of note, in the interim she received ceftriaxone and urine analysis suggested bladder infection. We are asked to help from critical care standpoint
Presently, she appears to be improved. She is now sitting in a chair, interacting with family. Pressors are being weaned off.
According to daughter at bedside, she has chronic lower extremity edema/lymphedema and takes Lasix as an outpatient
She still has occasional headache
Past medical history, social history, family history, review of systems as below
It is noted that patient is currently being treated for melanoma
History of lymphoma noted in 2018 following chemoradiation
Vitals are stable. Systolic blood pressure 103/43, afebrile, pulse 62
Chest exam is clear
No murmurs. Mild lower abdominal discomfort. Moving all extremities. There is no lower extremity edema
Conversing and following commands
Data reviewed
Head CT without acute findings blood work noted. Potassium 3.6, negative procalcitonin.
EKG within normal limits
Echocardiogram 2016 with normal biventricular function, diastolic dysfunction, PA pressure 45
Chest x-ray 08/01/2024 suggest mildly full right hilum per my review but per report no acute findings noted
A/P
Continue with empiric antibiotics for urinary tract infection.
IV fluid bolus, LR, wean antibiotics as able
Tramadol for migraines
She is now off 3% saline. Extravasation noted, treated with hyaluronidase
PT/OT, out of bed to chair
I reviewed her chest x-ray findings. Patient had a PET/C T November 2023 which was unremarkable with regards to the chest recommend follow-up imaging as outpatient as indicated clinically
DVT prophylaxis: Subcutaneous heparin, every 8 hours
GI prophylaxis: Patient on famotidine as outpatient
Reviewed with critical care nursing, respiratory care, pharmacy
Reviewed with daughter at bedside
TCCT 31 min
Original Note:
Consultation
Consultation Request
Date/Time Consultation Requested: 08/08
Date/Time Consultation Performed: 08:30
Medical History
-
Chief Complaint: Headaches/nausea and vomiting
History of Present Illness:
Patient is a 84-year-old female with past medical history of migraines, trigeminal neuralgia on Lyrica, lower extremity edema on HCTZ/triamterene, endometrial cancer 2009 (s/p hysterectomy), non-Hodgkin lymphoma 2016 (s/p chemoradiation), melanoma
on face (s/p mohs surgery) who presented to ED on 08/05 complaining of progressive severe frontal headache associated with nausea/vomiting that would not improve with ibuprofen at home. Patient also mentions feeling fatigued at that time.
Initial evaluation in the ED showed severe hyponatremia (sodium= 117) and elevated systolic blood pressure (ROI=625 on admission). Patient denied drinking excessive amount of liquids or starting any new medications within the past week. Head CT
was normal. PRN Labetalol and 3% saline was started in the ED and patient was admitted to IMU. While in IMU, HCTZ/triamterene was held, her sodium was steadily trending up and blood pressure was in the 160-170s range. Compazine and propranolol were
given for migraine, resulting in headache improving from an 8/10 to a 2/10. Daughter mentions her mom was having some sleeping difficulties and zolpidem was prescribed for her on 08/06. This was her first time taking zolpidem. Her headache, sodium
level and blood pressure were improving and 3% saline was held but around 9:30pm on 08/07 nursing staff noticed her becoming hypotensive (sbp in the 80s) and lethargic. Daughter also mentions that around the same time pt was hallucinating about
seeing someone in the room. Initial septic w/u including u/a, cxr, cbc, bmp, lactic acid was initiated. U/A was active and u/c is pending. Lactic, procalcitonin and WBC were within normal limits. No fevers were recorded. Apparently, she was straight
cathed 3 times for urinary retention (400cc) and eventfully a Burrell cath was placed. Ceftriaxone started last night.
Patient required more than 8mcg/hr Levophed to maintain BP and thus was transferred to the ICU on the am of 08/08.
Social History
Tobacco: Non-smoker
Alcohol: Occasional
Drug: None
Personal:
Living: Alone
Family History
Family History: Reviewed & Not Pertinent
Allergies / Home Medications
Allergies
Allergy/AdvReac Type Severity Reaction Status Date / Time
No Known Drug Allergies Allergy - Verified 07/29/16 14:55
hayfever & spring allergies Allergy sneezing, Uncoded 07/29/16 14:55
watery eyes
Home Medications
�Medication �Instructions �Recorded �Confirmed �Last Taken �Type
cetirizine 10 mg tablet (All Day 10 mg PO DAILY Allergies 01/09/22 08/05/24 01/09/22 History
Allergy (cetirizine))
ibuprofen 200 mg tablet (Advil) 400 mg PO Q6HPRN PRN mild pain 01/09/22 08/05/24 Unknown History
sennosides 8.6 mg-docusate sodium 2 ea PO DAILY Constipation 01/09/22 08/05/24 01/09/22 History
50 mg tablet (Senna-S)
Occipital Block Injection 1 dose IM MONTHLY migraines 08/05/24 08/05/24 1 Month Ago History
~07/06/24
cyclosporine 0.05 % eye drops in a 1 drp BOTH EYES BID Eye Condition 08/05/24 08/05/24 Unknown History
dropperette (Restasis)
doxepin 100 mg capsule 100 mg PO HS Depression 08/05/24 08/05/24 Unknown History
ergocalciferol (vitamin D2) 1,250 1,250 mcg PO SA Supplement 08/05/24 08/05/24 Unknown History
mcg (50,000 unit) capsule
famotidine 40 mg tablet 40 mg PO DAILY Gastrointestinal 08/05/24 08/05/24 Unknown History
Issue
metronidazole 0.75 % topical cream 1 applic topical DAILYPRN PRN 08/05/24 08/05/24 Unknown History
flare up on face
pregabalin 25 mg capsule 25 mg PO TID neuropathic pain 08/05/24 08/05/24 Unknown History
tramadol 50 mg tablet 50 mg PO Q8HPRN PRN moderate pain 08/05/24 08/05/24 Unknown History
triamterene 37.5 1 cap PO TUTH Blood Pressure 08/05/24 08/05/24 08/04/24 History
mg-hydrochlorothiazide 25 mg
capsule
Review of Systems
-
History Source: Patient and Family
All other systems: Negative unless noted
Constitutional: Fever (neg), Fatigue and Chills (neg)
Vitals / Labs / Diagnostic Testing
Vital Signs
Temp Pulse Resp BP Pulse Ox
98.3 F 62 10 85/49 100
08/08/24 07:55 08/08/24 06:30 08/08/24 06:30 08/08/24 06:30 08/08/24 05:00
Lab Data
08/08/24 03:46
08/08/24 03:46
Laboratory Results
08/08/24
03:46
PT 14.0
INR 1.09
APTT 28.4
Diagnostic Testing:
Physical Exam
-
HEENT: Normocephalic, Anicteric and Other (Mild-mod dehydration)
Cardiovascular: S1/S2, Regular Rhythm and Peripheral Edema (1+ b/l LEs)
Respiratory: Clear, Non-Labored Respirations and Other (saturating 96% on room air)
GI: Soft, Non Distended, Non Tender and Normal Bowel Sounds
Neurology: Awake, Alert, Oriented and AO x 3
Skin: Warm and Dry
General: Good Appetite and Other (slightly drowsy)
Assessment
-
I saw and evaluated patient this morning. She was resting in bed. Would wake up to verbal commands but was slightly drowsy. Alert and oriented to time, place, person. No apparent respiratory distress and saturating well on room air. States her
headache is back, mostly in the frontal lobe and 7/10. Mentions it feels more like a tension headache than a migraine. Denies feeling nauseous. States she is tired and hungry. Has not had any more visual hallucinations. Denies chest pain,
abdominal pain, shortness of breath, cough, urinary symptoms. CXR is normal.
#Hyponatremia (possibly SIADH due to pain)
Resolved- Na level 136 this am
Appreciate nephrology--no need for further 3% saline-ok for NSS if needed for BP
Cont to monitor BMP daily
Cont to hold HCTZ/Triamterene
#Severe headache
Improved
Cont propranolol 10 BID
Compazine, Tramadol PRN
#Nausea/ vomiting
Resolved
Toradol PRN if feeling nauseous
#Hypotensive shock possibly due to UTI
u/c pending
Cont Rocephin for now
Repeat u/a in the afternoon
CBC daily
Monitor Temps
Currently on 3 mcg Levophed-maintain MAP>65- will try to wean as tolerated
#Infiltration post 3% saline infusion
Received Hyaluronidase
Will cont to watch for any further reactions
#GERD prophylaxis
Famotidine 20 daily
#DVT prophylaxis
Heaprin 5000 q8h
#Diet
Regular
TSH, cortisol WNL.
[2024-08-08] MEDS: LACTATED RINGERS 250 IV (10:48)
--- NOTE | 2024-08-08 12:00 | PTCARENOTE ---
Pt assessed.No change in assessment noted.Levophed weaned off.IV bolus given as per MD order.
--- NOTE | 2024-08-08 12:07 | W.PN.HOSP.TC ---
Today's Communication/Plan
-
Wean pressors
follow-up culture data
IV antibiotic
Hyponatremia resolved
-Monitor closely
-Follow nephrology rec
Assessment / Plan
Assessment / Plan
Imaging
CTBrain
IMPRESSION:
No acute intracranial abnormality noted.
Physical Exam
NAD, resting comfortably in bed
Scleral anicteric
Moist mucous membranes
No JVD
CTA bilateral
Normal S1-S2 no murmurs
Soft nontender nondistended bowel sounds active
Edema +1 b/l le
Moves extremities spontaneously
AAOx3
Assessment and Plan
Shock/circulatory versus septic
-Wean pressor support as tolerated
-Follow-up blood and urine cultures
-Continue Rocephin
-ICU following
Severe Migraines
-Started compazine and propanolol per oncall neuro recs as reglan/benadryl/toradol was not helping
-Unable to provide triptans until BP improves
-CTBrain as above
Hyponatremia
-SIADH and on HCTZ
-3% hypertonic saline; held by nephrology
-HCTZ held indefinetly
-Neph following
-repeat bmp, if Na down then Neph may need to resume 3% or Lasix
Hypertension
-HCTZ and triametrene at home, has been held in the setting of hyponatremia
-Started propanolol and will add low dose ACEi
Anxiety and depression
-Doxepin and pregabalin
Gerd
-H2 noé continued
PT/OT
Anticipated Discharge: 24 - 48 hours
Subjective/Interval History
-
Date of Service: August 08, 2024
Seen and examined. Hypotensive required fluids pressors altered mental status. Now on minimal pressor support. Mental status improved. Sitting in bedside chair appears comfortable answering questions appropriately. Both daughters at bedside.
Objective Data
-
Labs:
Laboratory Results
08/08/24
03:46
WBC 7.6
Hgb 12.7
Hct 35.7 L
Plt Count 224
PT 14.0
INR 1.09
APTT 28.4
Sodium 136 D
Potassium 3.6
Chloride 102
Carbon Dioxide 22
BUN 21 H
Creatinine 0.9
Glucose 109 H
Calcium 8.2 L
Vital Signs:
Vital Signs
Temp Pulse Resp BP Pulse Ox
98.3 F 62 10 85/49 100
08/08/24 07:55 08/08/24 06:30 08/08/24 06:30 08/08/24 06:30 08/08/24 05:00
I&O
08/07/24 08/08/24 08/09/24
06:59 06:59 06:59
Intake Total 1410 / 1410 2192.5 / 2192.5
Output Total 3065 / 3065 1270 / 1270
Balance -1655 / -1655 922.5 / 922.5
--- NOTE | 2024-08-08 16:41 | PTCARENOTE ---
Pt assessed.No change in assessment noted.
[2024-08-08] MEDS: SENOKOT-S 1 TABLET PO (18:17)
[2024-08-08] MEDS: STERILE WATER FOR INJECTION 10 ML IV (22:20)
[2024-08-08] MEDS: SINEQUAN 100 MG PO (22:20)
[2024-08-08] MEDS: ROCEPHIN 1000 MG IV (22:20)
[2024-08-08] MEDS: RESTASIS 0.05% OPHTHALMIC EMULSION 1 DROPS BOTH EYES (22:21)
--- NOTE | 2024-08-08 22:36 | PTCARENOTE ---
pt reassessed, no changes noted. BP stable, see VS. denies pain, offers no other complaints. daughter at bedside. call loomis within reach.
[2024-08-09] VITALS (12 sets, daily range): BP systolic 99–157; BP diastolic 41–66; BMI 25.8
--- NOTE | 2024-08-09 04:14 | PTCARENOTE ---
AM labs and UA sent. pt offers no complaints. no changes in assessment noted. call loomis within reach.
[2024-08-09 04:28] LABS: Hematocrit 33.6 % (37.0-47.0); Hemoglobin 11.6 g/dL (12.0-16.0); Mean Corp Hgb Conc. 34.5 g/dL (33.0-37.0); Mean Corpuscular Hgb 27.5 pg (27.0-31.0); Mean Corpuscular Volume 79.6 fL (81.0-99.0); Mean Platelet Volume 9.6 fL (7.4-10.4); Platelet Count 207 10^3/uL (130-400); Red Blood Cell Count 4.22 10^6/uL (4.20-5.40); Red Cell Dist. Width 14.8 % (11.5-14.5); White Blood Cell Count 6.2 10^3/uL (4.8-10.8)
[2024-08-09 04:50] LABS: Blood Urea Nitrogen 19 mg/dl (7-17); Calcium 8.7 mg/dl (8.4-10.2); Carbon Dioxide 24 mmol/L (22-30); Chloride 103 mmol/L (98-107); Estimated Creatinine Clearance 44 ml/min; Glucose 100 mg/dl (70-99); Potassium 3.4 mmol/L (3.5-5.1); Sodium 137 mmol/L (135-145); eGFR > 60.00
--- NOTE | 2024-08-09 05:41 | PTCARENOTE ---
tele level of care ordered and acknowledged
[2024-08-09 05:55] LABS: Urine Sodium 24 mmol/L (30-90)
[2024-08-09 06:10] LABS: Osmolality Urine 478 mOsm/kg (300-900)
[2024-08-09] MEDS: RESTASIS 0.05% OPHTHALMIC EMULSION 1 DROPS BOTH EYES (08:32)
[2024-08-09] MEDS: LYRICA 25 MG PO ×3 (08:32→21:28)
[2024-08-09] MEDS: PEPCID 20 MG PO (08:32)
[2024-08-09] MEDS: ZYRTEC 10 MG PO (08:32)
[2024-08-09] MEDS: HEPARIN 5000 UNITS SC (08:33)
[2024-08-09] MEDS: MIRALAX 17 GRAMS PO (08:48)
[2024-08-09] MEDS: SENOKOT-S 1 TABLET PO (08:48)
--- NOTE | 2024-08-09 08:49 | W.PN.NEPH.PH ---
Today's Communication / Plan
-
voiding trial
Assessment/Plan
-
IMP:
Hyponatremia
HTN
Migraines
Anxiety/depression
Non hodgkins lymphoma age of 76 s/p chemorad
Endometrial cancer 2009 s/p JASON
bilat LE lymphedema
melanoma of face s/p [facility]
osteopenia
Right carotid art stenosis
cervicalgia-neck
GERD
Trigeminal neuralgia
left ICA aneurysm 3mm MRA 05/2024
Arthritis
sleep apnea
SZ 1995
chr maxillary sinusitis CT noted 01/2024
Plan:
follow BMP
voiding trial
will sign off, please call with questions
-
-
Date of Service: August 09, 2024
CC / HPI / ROS
-
Chief Complaint:
hyponatremia
History of Present Illness:
sodium stable at 137
BP stable off pressors
no fevers
vasquez placed for retention over 400cc 08/06
Review of Systems:
no cp or sob
tolerating diet
Labs
-
Labs:
WBC 6.2 10^3/uL (4.8-10.8) 08/09/24 04:04
RBC 4.22 10^6/uL (4.20-5.40) 08/09/24 04:04
Hgb 11.6 g/dL (12.0-16.0) L 08/09/24 04:04
Hct 33.6 % (37.0-47.0) L 08/09/24 04:04
Plt Count 207 10^3/uL (130-400) 08/09/24 04:04
Sodium 137 mmol/L (135-145) 08/09/24 04:04
Potassium 3.4 mmol/L (3.5-5.1) L 08/09/24 04:04
Chloride 103 mmol/L (98-107) 08/09/24 04:04
Carbon Dioxide 24 mmol/L (22-30) 08/09/24 04:04
BUN 19 mg/dl (7-17) H 08/09/24 04:04
Creatinine 0.7 mg/dL (0.6-1.0) 08/09/24 04:04
eGFR > 60.00 08/09/24 04:04
Glucose 100 mg/dl (70-99) H 08/09/24 04:04
Calcium 8.7 mg/dl (8.4-10.2) 08/09/24 04:04
Phosphorus 3.3 mg/dl (2.5-4.5) 08/08/24 03:46
Wvd-W-Hdyhzafdbxn Pept 553 pg/ml 08/07/24 20:45
Albumin 4.3 g/dl (3.5-5.0) 08/05/24 20:15
Physical Exam
-
Vital Signs:
Vital Signs
Temp Pulse Resp BP Pulse Ox
97.9 F 71 11 124/50 96
08/09/24 04:10 08/09/24 06:00 08/09/24 06:00 08/09/24 06:00 08/09/24 02:04
Cardiovascular:: Regular rate and rhythm
Respiratory:: Bilateral: Coarse
Lung Excursion:: Normal
Abdomen:: Nontender and Soft
Bowel Sounds:: Normal
Extremity Edema:: +1: Bilateral:
[2024-08-09] MEDS: ULTRAM 50 MG PO ×3 (08:53→21:32)
[2024-08-09] MEDS: KCL ELIXIR 40 MEQ PO (09:47)
--- NOTE | 2024-08-09 09:50 | W.PN.HOSP.TC ---
Today's Communication/Plan
-
Monitor blood pressure
Remove Burrell catheter with voiding trial
treat constipation
Assessment / Plan
Assessment / Plan
Shock - Circulatory vs medication related
-Patient off of vasopressors and vitally remains stable
-No leukocytosis/remain afebrile
-Urine cs negative
-Transfer to telemetry
Severe Migraines
-Follows up with Dr. Parker outpatient basis
-Patient was started on different medication with improvement in migraine
-CT Brain neg for any acute abnormality
-Patient blood pressure was better controlled at admission and and can also cause headache
Hyponatremia
-SIADH and on HCTZ
-3% hypertonic saline provided
-HCTZ held indefinably
-Nephro following
Essential hypertension - Uncontrolled
-Patient systolic blood pressure in 150-160 range at admit
-HCTZ and triamterene at home, has been held in the setting of hyponatremia
-Patient was started on propranolol/low-dose DAHLIA which needed to be held due to development of hypotension. Currently blood pressure controlled and will resume back propranolol with h/o of migraine
Acute urinary retention
-Burrell catheter to be removed today and to undergo voiding trial.
Constipation
-Patient will get MiraLAX/Senokot in the morning
-If no bowel movement will need to provide oral mag citrate followed by Dulcolax suppository based on response
Anxiety and depression
-Doxepin and pregabalin
Gerd
-H2 noé continued
Lovenox
Physical therapy recommended SNF rehab versus home PT. Discussed with daughter at bedside, undecided
Anticipated Discharge: Within 24 hours
Subjective/Interval History
-
Date of Service: August 09, 2024
Denies of having any headache
No other acute issues reported
Objective Data
-
Labs:
Laboratory Results
08/09/24
04:04
WBC 6.2
Hgb 11.6 L
Hct 33.6 L
Plt Count 207
Sodium 137
Potassium 3.4 L
Chloride 103
Carbon Dioxide 24
BUN 19 H
Creatinine 0.7
Glucose 100 H
Calcium 8.7
Vital Signs:
Vital Signs
Temp Pulse Resp BP Pulse Ox
97.5 F 71 11 124/50 96
08/09/24 07:53 08/09/24 06:00 08/09/24 06:00 08/09/24 06:00 08/09/24 02:04
I&O
08/08/24 08/09/24 08/10/24
06:59 06:59 06:59
Intake Total 2192.5 / 2207.5 2057.0 / 2057.0
Output Total 1270 / 1270 1125 / 1125
Balance 922.5 / 937.5 932.0 / 932.0
Review of Systems
-
Respiratory: Reports No Symptoms
Cardiac: Reports No Symptoms
Abdomen/GI: Reports No Symptoms
Physical Exam
-
General: No Apparent Distress and Comfortable
HEENT: Negative Oxygen
Respiratory: Clear to Auscultation
Cardiac: Regular Rhythm and S1/S2; Negative Murmur or Rub
GI: Soft, Nontender and Nondistended
Musculoskeletal: No Edema
Neuro: Awake, Alert, Oriented, No Motor Deficits and Nonfocal/Grossly Intact
Psych: Calm
--- NOTE | 2024-08-09 10:05 | W.PN.INTV ---
Addendum entered and electronically signed by Marva Garay MD 08/09/24 10:59:
Patient seen and examined independently by myself. Reviewed below and agree with plan and assessment. Patient is much improved this morning. More alert, conversant. Headaches have resolved, denies nausea, shortness of breath. Slept through the
night according to daughter at bedside
Vitals are stable, urine output adequate, blood pressure stable
Chest exam is clear, abdominal exam with mild lower abdominal discomfort. Patient feels she needs to have a bowel movement. No rebound or guarding
No edema
Burrell catheter in place
Data reviewed
A/P
Patient appears to have responded to IV fluid boluses and antibiotics. Off pressors
Lethargy and mental status, headaches have improved
Continue with antibiotics for now, remains on ceftriaxone. Consider transitioning to oral antibiotic twice daily, next dose tonight
Discontinue Burrell
Bowel regimen
Follow-up urine culture
Electrolyte abnormalities have resolved
Patient for transfer out of ICU. We will sign off. Please call with questions
Original Note:
Today's Communication / Plan
Recommendations
Downgrade to telemetry
Assessment
-
I saw and evaluated patient this morning. She was resting in bed. Awake, alert and oriented to time, place, person. No apparent respiratory distress and saturating well on room air. States her headache is resolved. Denies feeling nauseous. Has
not had any more visual hallucinations. Denies chest pain, abdominal pain, shortness of breath, cough, urinary symptoms. CXR is normal. TSH, cortisol WNL.
#Hyponatremia (possibly SIADH due to pain)
Resolved- Na level stable for the past 48hrs-137 this am
Appreciate nephrology--does not need further follow-up
Cont to monitor BMP daily
Cont to hold HCTZ/Triamterene
#Severe headache
Resolved
#Nausea/ vomiting
Resolved
#Hypotensive shock possibly due to UTI
Afebrile-white count normal
Weaned off norepinephrine yesterday
Switched Rocephin to cefuroxime 500 twice daily p.o.
u/c pending
Continue monitoring BP-if elevated, may consider restarting BP home meds
#Infiltration post 3% saline infusion
Received Hyaluronidase
Will cont to watch for any further reactions
#GERD prophylaxis
Famotidine 20 daily
#DVT prophylaxis
Given normal kidney function, can switch heparin to enoxaparin 40 q12h
#Diet
Regular
Patient is clinically stable and can be downgraded to telemetry.
Subjective Dataa
Subjective Data
Date of Service:
Date of Service: August 09, 2024
Subjective:
Headache and nausea/vomiting have resolved. States she is feeling much better. Was able to be weaned off pressors late yesterday. Current BPs are in the 120-140 range.
Review of Systems
General: Satisfactory Appetite
Cardiopulmonary: Dyspnea (Negative) and Cough (Negative)
GI: Nausea (Negative), Vomiting (Negative) and Constipation (Last bowel movement was Thursday)
Neuro: Headache (Negative)
Genitourinary: Burrell
Objective Data
Data Reviewed
Vital Signs / I&O / Oxygen:
Vital Signs
Temp Pulse Resp BP Pulse Ox
97.5 F 71 11 124/50 96
08/09/24 07:53 08/09/24 06:00 08/09/24 06:00 08/09/24 06:00 08/09/24 02:04
Intake and Output
08/08/24 08/09/24 08/10/24
06:59 06:59 06:59
Intake Total 2192.5 / 2207.5 2057.0 / 2057.0
Output Total 1270 / 1270 1125 / 1125
Balance 922.5 / 937.5 932.0 / 932.0
SaO2 96
Nasal Cannula flow liters per 1
minute
Physical Exam
General: Comfortable and Good Appetite
HEENT: Normocephalic, Anicteric and Moist Mucous Membranes
Cardiovascular: S1-S2, Regular Rhythm, Murmur (Negative), JVD (Negative) and Peripheral Edema (Very mild bilateral edema)
Respiratory: Clear and Non-Labored Respirations
GI: Soft, Distended, Non Tender and Normal Bowel Sounds
Neurology: Awake, Alert, Oriented and AO x 3
Skin: Warm and Dry
Labs/Micro/Reports
Lab Data
08/09/24 04:04
08/09/24 04:04
--- NOTE | 2024-08-09 11:43 | PTCARENOTE ---
pt awake and oriented, BENTON , heart rate NSR , Bp 141/62 , on room air with sats of 98% , lungs clear , vasquez cath removed at 0915, OOB to chair , pt has had no BM , pt given mirlax and and Dulcolx , tolerating diet , co headache tramadol given , NA
level 137 today improved from 117 on admission , pt is telemetry status , pt daughter in room and updated on plan of care and condition
--- NOTE | 2024-08-09 14:57 | CM ---
CM reviewed chart, met with patient and daughter, Nancy, bedside. CM discussed PT recommendations of home health, patient and family requesting referral to [facility], TT to [facility] with referral. Patient reports she has two walkers and a cane at home.
Daughter reports she and her sister live five minutes from patient and can stay with patient as needed. CM will continue to follow for all discharge planning needs.
Plan; home with [facility] when stable.
--- NOTE | 2024-08-09 15:59 | VNURNOTE ---
Home Health Liaison spoke with patient's daughter Nancy and discussed [facility] nurse/therapy, visits, schedule and homebound status. Daughter is agreeable and understands that visits at home will be 2-3 x per week to assess and teach medical
management. [facility] liaison provided contact information to daughter. She is aware that [facility] will contact them for start of care in 1-2 days after discharge from . [facility] referral completed in [facility].
--- NOTE | 2024-08-09 16:27 | PTCARENOTE ---
pt to transfer to room 434-2 , report given to recjamila RN , pt has not voided since vasquez cath removal she was bladder scanned at 1615 and had 90ml residual
[2024-08-09] MEDS: LOVENOX 40 MG SC (17:31)
--- NOTE | 2024-08-09 18:09 | PTCARENOTE ---
Received pt from ICU around 171 via wheelchair, assist x 1 into bed. Daughters at bedside. No change from previous assessment noted. Pt still c/o severe headache without relief from Ultram previously given. Pt offered an ice pack and placed to top
of pt's head. Telemetry applied. WIll continue to monitor. Pt still needs to void after vasquez removed.
[2024-08-09] MEDS: SINEQUAN 100 MG PO (21:28)
[2024-08-09] MEDS: AMOXIL 500 MG PO (21:28)
[2024-08-09] MEDS: RESTASIS 0.05% OPHTHALMIC EMULSION BOTH EYES (21:31)
[2024-08-10 03:00] VITALS: BP 102/60
[2024-08-10] MEDS: AMOXIL 500 MG PO ×2 (05:40→13:42)
[2024-08-10 07:00] VITALS: BP 117/68
[2024-08-10 08:39] LABS: Hematocrit 36.9 % (37.0-47.0); Hemoglobin 12.3 g/dL (12.0-16.0); Mean Corp Hgb Conc. 33.3 g/dL (33.0-37.0); Mean Corpuscular Hgb 28.1 pg (27.0-31.0); Mean Corpuscular Volume 84.2 fL (81.0-99.0); Mean Platelet Volume 9.8 fL (7.4-10.4); Platelet Count 234 10^3/uL (130-400); Red Blood Cell Count 4.38 10^6/uL (4.20-5.40); Red Cell Dist. Width 14.9 % (11.5-14.5)
[2024-08-10] MEDS: ZYRTEC 10 MG PO (08:41)
[2024-08-10] MEDS: PEPCID 20 MG PO (08:41)
[2024-08-10 09:17] LABS: Blood Urea Nitrogen 17 mg/dl (7-17); Carbon Dioxide 23 mmol/L (22-30); Chloride 100 mmol/L (98-107); Estimated Creatinine Clearance 44 ml/min; Glucose 106 mg/dl (70-99); Potassium 4.2 mmol/L (3.5-5.1); Sodium 139 mmol/L (135-145); eGFR > 60.00
[2024-08-10] MEDS: LYRICA 25 MG PO (10:04)
[2024-08-10] MEDS: RESTASIS 0.05% OPHTHALMIC EMULSION 1 DROPS BOTH EYES (10:05)
--- NOTE | 2024-08-10 10:19 | PN.CDI ---
CDI
- -
CDI:
Physician Documentation Request
Admit Date: 08/05/24 23:24
Dear Doctor,
Please review the following and provide your response in the progress notes.
Clinical Indicators:
- 08/09 Torpedo Man 'Hypotensive shock possibly due to UTI'
- 08/09 PN 'Urine cs negative
- UC with Enterococcus
- 08/09 Cefuroxine ordered
In an attempt to clarify potentially conflicting documentation, please clarify the UTI:
UTI
UTI ruled out
Other (please specify)
Use of terms such as suspected, likely, concern for, or probable (associated with a specific diagnosis that is being evaluated, monitored, or treated as if it exists) are acceptable and can be coded in the inpatient setting, when documented at the
time of discharge.
Thank you,
Armando Vitale RN
CDI Specialist
Please use your independent medical judgment in providing your response.
[2024-08-10] MEDS: ULTRAM 50 MG PO (10:26)
--- NOTE | 2024-08-10 10:33 | PN.CDI ---
CDI
- -
CDI:
Physician Documentation Request
Admit Date: 08/05/24 23:24
Dear Doctor,
Please review the following and provide your response in the progress notes.
Clinical Indicators:
- 08/09 PN 'Shock - Circulatory vs medication related'
- 08/09 Circulating Process Inspector 'Hypotensive shock possibly due to UTI'
- Levophed weaned off
Please clarify which of the following is the most likely etiology of the above symptoms and treatment rendered:
Septic shock
Cardiogenic shock
Hypovolemic shock - indicate if due to surgery, trauma or other etiology
Shock, unknown type
Hypotension - indicate type/etiology, such as idiopathic, neurogenic or orthostatic, post-procedural, postoperative, due to hemodialysis, chronic, drug induced (indicate drug), etc.
Other (please specify)
Use of terms such as suspected, likely, concern for, or probable (associated with a specific diagnosis that is being evaluated, monitored, or treated as if it exists) are acceptable and can be coded in the inpatient setting, when documented at the
time of discharge.
Thank you,
Armando Vitale RN
CDI Specialist
Please use your independent medical judgment in providing your response.
[2024-08-10 11:15] VITALS: BP 141/77
--- NOTE | 2024-08-10 11:58 | W.PN.HOSP.TC ---
Addendum entered and electronically signed by Jesse Villanueva MD 08/12/24 08:30:
Shock - unknown type
Enterococcal UTI
Original Note:
Today's Communication/Plan
-
D/c home with hh
Assessment / Plan
Assessment / Plan
Shock - Circulatory vs medication related
-Patient off of vasopressors and vitally remains stable
-No leukocytosis/remain afebrile
-Urine cs negative, finish course of abx, no abx at discharge.
-Transfer to telemetry
Severe Migraines
-Follows up with Dr. Parker outpatient basis
-Patient was started on different medication with improvement in migraine
-CT Brain neg for any acute abnormality
-Patient blood pressure was better controlled at admission and and can also cause headache
Hyponatremia
-SIADH and on HCTZ
-3% hypertonic saline provided
-HCTZ held indefinably
-Nephro following
Essential hypertension - Uncontrolled
-Patient systolic blood pressure in 150-160 range at admit
-HCTZ and triamterene at home, has been held in the setting of hyponatremia
-Patient was started on propranolol/low-dose DAHLIA which needed to be held due to development of hypotension. Currently blood pressure controlled and will resume back propranolol with h/o of migraine
Acute urinary retention
-able to void post removal of vasquez
-Flomax ordered
- recommended to f/u with urology in office if symptoms persist.
Constipation - resolved
-recommended to remain on daily miralax/colace
Anxiety and depression
-Doxepin and pregabalin
Gerd
-H2 noé continued
Lovenox
D/c home with hh
Anticipated Discharge: Today
Subjective/Interval History
-
Date of Service: August 10, 2024
no issues overnight
Objective Data
-
Labs:
Laboratory Results
08/10/24
08:09
WBC 8.0
Hgb 12.3
Hct 36.9 L
Plt Count 234
Sodium 139
Potassium 4.2
Chloride 100
Carbon Dioxide 23
BUN 17
Creatinine 0.7
Glucose 106 H
Calcium 9.0
Vital Signs:
Vital Signs
Temp Pulse Resp BP Pulse Ox
97.7 F 89 14 141/77 98
08/10/24 11:15 08/10/24 11:15 08/10/24 11:15 08/10/24 11:15 08/10/24 11:15
I&O
08/09/24 08/10/24 08/11/24
06:59 06:59 06:59
Intake Total 2057.0 / 2057.0 500 / 500
Output Total 1125 / 1125 850 / 850
Balance 932.0 / 932.0 -350 / -350
Review of Systems
-
Respiratory: Reports No Symptoms
Cardiac: Reports No Symptoms
Abdomen/GI: Reports No Symptoms
Physical Exam
-
General: No Apparent Distress and Comfortable
HEENT: Negative Oxygen
Respiratory: Clear to Auscultation
Cardiac: Regular Rhythm and S1/S2; Negative Murmur or Rub
GI: Soft, Nontender and Nondistended
Musculoskeletal: No Edema
Neuro: Awake, Alert, Oriented, No Motor Deficits and Nonfocal/Grossly Intact
Psych: Calm
--- NOTE | 2024-08-10 12:50 | CM ---
Chart reviewed and lining caser met with patient and daughter today, plan is to home with [facility].
Plan; Home with [facility].
--- NOTE | 2024-08-11 15:47 | W.DCSUMMARY ---
Discharge Summary
Discharge Data
Date of Admission: 08/05/24
Date of Discharge: 08/10/24
-
Pending Results: No
Hospital Course
Discharging Physician : Dr Jesse Villanueva
Disposition :To home
Primary care physician : Dr Rd Geller
Principal Discharge diagnosis :
Acute hyponatremia's
Temporary shock/hypotension
Severe migraine
Acute urinary retention
Constipation
Chronic Discharge diagnosis :
Essential hypertension
Anxiety/depression
Gastroesophageal reflux disease
Hospital Course :
Patient is a 84-year-old female with admission past medical history came to ER for having new onset of severe migrainous headache associated with nausea and vomiting. In ER patient was found to be hyponatremic and was admitted for further
management.
Patient blood sodium of 117 in ER. Urine studies suggestive of possible ADH excess. Patient was provided 3% NS and nephrology was consulted for further help. Patient also hydrochlorothiazide and contributed to hyponatremia as well. At discharge
patient recommended to be off of hydrochlorothiazide. Lasix 10 mg 3 times a week ordered to help with lower extremity swelling.
Patient also had uncontrolled hypertension and with simultaneous migraine was provided propranolol. Patient had drop in blood pressure and there was concern of patient likely having new shock versus medication side effect. Patient required to be
monitored in ICU for 24-hour. As part of workup patient had urine culture collected and grew Enterococcus. Patient was getting amoxicillin in the hospital and was provided short course at discharge. After improvement/resolution of
Hypotension/shock patient was started back on propranolol.
Patient also had urinary retention for which patient required Burrell support, this was removed with patient able to void without any difficulty.
For patient's severe migraine patient was treated with multiple different medication and had improvement in symptoms after resolution of hypertension/hyponatremia. CT brain was negative for any acute abnormality. Patient has seen Dr. Ludwig in
office and was instructed to follow-up postdischarge as well.
Important imaging findings :
None
Procedure findings :
None
Discharge Plan
-
Patient Disposition: Home with Home Care
Discharge Diagnosis/Procedures: Shock, Hyponatremia, Urinary retention
Condition: Fair
Diet: Regular
Activity: As tolerated
Driving Restrictions: As prior to admission
Bathing Restrictions: OK to Shower
Blood Work: BMP in 1 week
Referrals:
Wilfrido Geller MD [Family Provider] - in one week
Additional Discharge Medication Instructions: STOP Triamterene/HCTZ combination pill
Prescriptions:
New
polyethylene glycol 3350 [HealthyLax] 17 gram Powder In Packet
17 g PO DAILY Qty: 30 0RF
propranolol 10 mg Tablet
10 mg PO BID Qty: 60 0RF
tamsulosin [Flomax] 0.4 mg capsule
0.4 mg PO DAILY Qty: 30 0RF
furosemide [Lasix] 20 mg tablet
10 mg PO MOWEFR Qty: 10 0RF
amoxicillin 500 mg capsule
500 mg PO Q8H Qty: 9 0RF
Continued
cetirizine [All Day Allergy (cetirizine)] 10 MG tablet
10 mg PO DAILY
sennosides-docusate sodium [Senna-S] 1 EACH tablet
2 ea PO DAILY
ibuprofen [Advil] 200 MG tablet
400 mg PO Q6HPRN PRN (Reason: mild pain)
famotidine 40 mg tablet
40 mg PO DAILY
tramadol 50 mg tablet
50 mg PO Q8HPRN PRN (Reason: moderate pain)
doxepin 100 mg capsule
100 mg PO HS
metronidazole 0.75 % cream
1 applic TOPICAL DAILYPRN PRN (Reason: flare up on face)
ergocalciferol (vitamin D2) 1,250 mcg (50,000 unit) capsule
1,250 mcg PO SA
cyclosporine [Restasis] 0.05 % dropperette
1 drp BOTH EYES BID
pregabalin 25 mg capsule
25 mg PO TID
Occipital Block Injection
1 dose IM MONTHLY
Discontinued
triamterene-hydrochlorothiazid 37.5-25 mg Capsule
1 cap PO TUTH
Discharge Orders:
Discharge Patient (As Directed); Ordered 08/10/24
Ordered By: Jesse Villanueva
Discharge Date and Time
Discharge Date/Time: 08/10/24 14:38
Print Language: PASHTO
== END 2024-08-10 14:38 | disposition home health service (06) | DRG 644 ==
LOC: 4 WEST ACU 23:24
PROVIDERS: Hospitalist; Nurse Practitioner Family; Physician Assistant; Specialist; ADMITTING PHYSICIAN Internal Medicine; ATTENDING PHYSICIAN Hospitalist; CONSULT PHYSICIAN Internal Medicine; EMERGENCY PHYSICIAN Student in an Organized Health Care Education/Training Program; FAMILY PHYSICIAN Internal Medicine; OTHER PHYSICIAN Internal Medicine Critical Care Medicine
DX: E22.2 Syndrome of inappropriate secretion of antidiuretic hormone (principal); I16.1 Hypertensive emergency; R44.3 Hallucinations, unspecified; N39.0 Urinary tract infection, site not specified; R57.9 Shock, unspecified; F32.A Depression, unspecified; I65.21 Occlusion and stenosis of right carotid artery; B95.2 Enterococcus as the cause of diseases classified elsewhere; F41.9 Anxiety disorder, unspecified; G43.909 Migraine, unspecified, not intractable, without status migrainosus; G47.30 Sleep apnea, unspecified; G50.0 Trigeminal neuralgia; I10 Essential (primary) hypertension; I89.0 Lymphedema, not elsewhere classified; J30.1 Allergic rhinitis due to pollen; K21.9 Gastro-esophageal reflux disease without esophagitis; K59.00 Constipation, unspecified; M19.90 Unspecified osteoarthritis, unspecified site; M85.80 Other specified disorders of bone density and structure, unspecified site; J32.0 Chronic maxillary sinusitis; M54.2 Cervicalgia; Z79.899 Other long term (current) drug therapy; Z85.820 Personal history of malignant melanoma of skin; Z85.42 Personal history of malignant neoplasm of other parts of uterus; Z85.72 Personal history of non-Hodgkin lymphomas; Z86.79 Personal history of other diseases of the circulatory system; Z92.21 Personal history of antineoplastic chemotherapy; Z92.3 Personal history of irradiation; Z90.710 Acquired absence of both cervix and uterus
CPT/HCPCS: 70450; 71045; 80048; 80053; 81003; 81015; 82533; 82570; 82962; 83605; 83735; 83880; 83930; 83935; 84100; 84145; 84295; 84300; 84443; 85025; 85027; 85610; 85730; 87077; 87086; 87186; 93005; 96361; 96365; 96375; 97116; 97162; 97167; 99285

== ENCOUNTER → 2024-08-17 11:54 | Outpatient (REF) | payer OTHER, SELFPAY ==
[2024-08-17 15:56] LABS: Blood Urea Nitrogen 21 mg/dl (7-17); Calcium 8.7 mg/dl (8.4-10.2); Carbon Dioxide 23 mmol/L (22-30); Chloride 101 mmol/L (98-107); Glucose 74 mg/dl (70-99); Potassium 5.2 mmol/L (3.5-5.1); Sodium 137 mmol/L (135-145); eGFR > 60.00
== END ==
LOC: HWLAB 11:54
PROVIDERS: ATTENDING PHYSICIAN Hospitalist; FAMILY PHYSICIAN Internal Medicine
DX: E87.1 Hypo-osmolality and hyponatremia (principal)
CPT/HCPCS: 36415; 80048

== ENCOUNTER → 2024-08-25 10:20 | Outpatient (REF) | payer OTHER, SELFPAY ==
[2024-08-25 12:07] LABS: Blood Urea Nitrogen 15 mg/dl (7-17); Carbon Dioxide 21 mmol/L (22-30); Chloride 101 mmol/L (98-107); Glucose 84 mg/dl (70-99); Potassium 4.7 mmol/L (3.5-5.1); Sodium 133 mmol/L (135-145); eGFR > 60.00
[2024-08-25 14:58] LABS: Uric Acid 4.3 mg/dl (2.5-6.2)
== END ==
LOC: HWLAB 10:20
PROVIDERS: ATTENDING PHYSICIAN Internal Medicine
DX: E87.1 Hypo-osmolality and hyponatremia (principal)
CPT/HCPCS: 36415; 80048; 84550

== ENCOUNTER → 2024-08-31 11:13 | Outpatient (REF) | payer OTHER, SELFPAY ==
[2024-08-31 15:33] LABS: Osmolality Urine 153 mOsm/kg (300-900)
[2024-08-31 15:40] LABS: Blood Urea Nitrogen 16 mg/dl (7-17); Calcium 8.7 mg/dl (8.4-10.2); Carbon Dioxide 24 mmol/L (22-30); Chloride 101 mmol/L (98-107); Glucose 85 mg/dl (70-99); Potassium 4.6 mmol/L (3.5-5.1); Sodium 136 mmol/L (135-145); eGFR > 60.00
[2024-08-31 15:57] LABS: Urine Sodium 15 mmol/L (30-90)
[2024-08-31 16:40] LABS: Osmolality Serum 282 mOsm/kg (275-300)
== END ==
LOC: HWLAB 11:13
PROVIDERS: ATTENDING PHYSICIAN Internal Medicine
DX: E87.1 Hypo-osmolality and hyponatremia (principal)
CPT/HCPCS: 36415; 80048; 83930; 83935; 84300

== ENCOUNTER 2024-10-25 10:27 | Outpatient (RCR) | payer OTHER, SELFPAY | END 2024-10-25 23:59 | disposition home or self-care (01) | LOC: RPT 10:27 | PROVIDERS: ATTENDING PHYSICIAN Internal Medicine | DX: I89.0 Lymphedema, not elsewhere classified (principal); Z73.6 Limitation of activities due to disability; R26.89 Other abnormalities of gait and mobility; Z85.42 Personal history of malignant neoplasm of other parts of uterus | CPT/HCPCS: 97163; 97530; 97760 ==

== ENCOUNTER → 2024-10-25 15:24 | Outpatient (REF) | payer OTHER, SELFPAY ==
[2024-10-25 16:04] LABS: % Basophils 0.5 % (0-2); % Eosinophils 0.9 % (0-6); % Immature Granulocytes 0.2 % (0-0.5); % Lymphocytes 14.6 % (20.5-51.1); % Monocytes 4.7 % (1.7-9.3); % Neutrophils 79.1 % (42.2-75.2); Absolute Eosinophils 0.1 10^3/uL (0-0.7); Absolute Lymphocytes 0.9 10^3/uL (1.2-3.4); Absolute Monocytes 0.3 10^3/uL (0.1-0.6); Hematocrit 32.3 % (37.0-47.0); Hemoglobin 10.3 g/dL (12.0-16.0); Mean Corp Hgb Conc. 31.9 g/dL (33.0-37.0); Mean Corpuscular Hgb 26.7 pg (27.0-31.0); Mean Corpuscular Volume 83.7 fL (81.0-99.0); Mean Platelet Volume 10.8 fL (7.4-10.4); Nucleated Red Blood Cells % 0 %; Platelet Count 207 10^3/uL (130-400); Red Blood Cell Count 3.86 10^6/uL (4.20-5.40); Red Cell Dist. Width 14.6 % (11.5-14.5); White Blood Cell Count 6.4 10^3/uL (4.8-10.8)
[2024-10-25 16:26] LABS: ALT (SGPT) 16 U/L (0-35); AST (SGOT) 20 U/L (14-36); Albumin 3.9 g/dl (3.5-5.0); Alkaline Phosphatase 146 U/L (38-126); Blood Urea Nitrogen 15 mg/dl (7-17); Carbon Dioxide 28 mmol/L (22-30); Chloride 101 mmol/L (98-107); Glucose 90 mg/dl (70-99); Potassium 4.4 mmol/L (3.5-5.1); Sodium 138 mmol/L (135-145); Total Bilirubin 0.3 mg/dl (0.2-1.3); Total Protein 6.5 g/dl (6.3-8.2); eGFR 54.87
[2024-10-25 16:27] LABS: Uric Acid 5.7 mg/dl (2.5-6.2)
== END ==
LOC: REG 15:24
PROVIDERS: ATTENDING PHYSICIAN Internal Medicine
DX: I89.0 Lymphedema, not elsewhere classified (principal); R33.9 Retention of urine, unspecified; E87.1 Hypo-osmolality and hyponatremia
CPT/HCPCS: 36415; 80053; 84550; 85025

== ENCOUNTER 2025-05-09 17:30 | Inpatient (IN) | payer OTHER, SELFPAY ==
[2025-05-09] VITALS (9 sets, daily range): BP systolic 80–148; BP diastolic 43–83; BMI 26.2; BMI 25.0
[2025-05-09 13:55] LABS: Hematocrit 25.6 % (37.0-47.0); Hemoglobin 8.1 g/dL (12.0-16.0); Mean Corp Hgb Conc. 31.6 g/dL (33.0-37.0); Mean Corpuscular Volume 72.5 fL (81.0-99.0); Nucleated Red Blood Cells % 0 %; Platelet Count 307 10^3/uL (130-400); Red Cell Dist. Width 16.0 % (11.5-14.5)
[2025-05-09 14:14] LABS: ALT (SGPT) 16 U/L (0-35); AST (SGOT) 20 U/L (14-36); Albumin 3.7 g/dl (3.5-5.0); Alkaline Phosphatase 122 U/L (38-126); Blood Urea Nitrogen 20 mg/dl (7-17); Calcium 8.8 mg/dl (8.4-10.2); Carbon Dioxide 27 mmol/L (22-30); Chloride 101 mmol/L (98-107); Glucose 132 mg/dl (70-99); Potassium 4.9 mmol/L (3.5-5.1); Sodium 133 mmol/L (135-145); Total Protein 6.6 g/dl (6.3-8.2); eGFR > 60.00
--- NOTE | 2025-05-09 16:25 | ED.GENMED ---
History of Present Illness
General
Chief Complaint: Abnormal Lab Value
Time Seen by Provider: 05/09/25 15:40
History of Present Illness
History of Present Illness:
84-year-old female with history of hypertension and hyperlipidemia presents to the emergency department for evaluation of low hemoglobin and general [place]. She has been fatigued for at least 4 to 5 weeks, saw her primary care physician late last
week and outpatient labs revealed a hemoglobin of 8.0. She denies any black or bloody stool but notes she has been constipated for the past 5 days. She reports occasional GERD symptoms but no overt abdominal pain. No melena. No fevers night
sweats or weight loss. She is not on anticoagulants. Does not take NSAIDs routinely but does take baby aspirin daily
Past History
Past History
ED Past Medical History: HTN; Negative Hypercholesterolemia or IDDM
ED Past Surgical History: Negative Cardiac, or Gynecological
Social History
Tobacco: Non-smoker
Alcohol: None
Drug: None
Personal:
Living: with family
Employment: Not employed
Family History
Family History: Hypertension
Review of Systems
Review of Systems
Allergies reviewed?: Yes
All Other Systems: ROS reviewed and negative except as documented in HPI and ROS
Phy Exam
Physical Exam
Physical Exam:
GEN: Well appearing, NAD, WDWN
HEENT: Oral mucosa moist, no scleral icterus
Cardiac: Regular rate and rhythm, no murmurs
Lung: No respiratory distress, no tachypnea, lungs clear to auscultation bilaterally
Abdomen: Protuberant but soft and grossly nontender no rigidity
Rectal: Scant brown stool in the rectal vault heme positive
MSK: No gross deformity or injuries
Skin: Good color, no pallor or jaundice, no rashes
Neuro: AO x3, moves all extremities freely
Psych: Calm, cooperative
Course
Orders/Labs/Results
Orders:
Orders
05/09/25 13:35
Type+Screen Urgent
Complete Blood Count/With Diff Urgent
Comprehensive Metabolic Panel Urgent
05/09/25 16:15
Pantoprazole [Protonix IV] 40 mg IV NOW STA
05/09/25 17:00
Admit/Transfer Patient As Directed
Co-Sign Provider:
Level of Care: Inpatient admission
Assign to:: Telemetry
Physician / Group: Hospitalist
Diagnosis: Symptomatic anemia
Reason for Telemetry: Other
Other Reason for Telemetry: Low hb.
Date to Stop Telemetry: 05/11/25
Time to Stop Telemetry: 11:00
Reason for Hospitalization: Fatigue and anemia
Expected length of stay greater than two midnights?: Yes
ELOS- Estimated Length of Stay in days: 3
I certify the patient meets the requirements for IP care: Yes
PRN Pain Medication Management As Directed
May give lesser potent ordered pain med per pt: Yes
preference::
Protocol:: Medication orders for pain may be administered in a
manner that supports deferring to patient preference
when the pt is:
- Requesting an ordered lesser potent pain medication.
Least to most potent pain medications are defined
as: acetaminophen < NSAID < tramadol < opioids
(morphine, oxycodone, hydromorphone).
- Requesting a lesser dose of the same medication IF
ORDERED.
- Requesting a less intrusive route of administration
if both routes are prescribed by the provider (PO <
IV).
05/09/25 17:04
Code Status As Directed
Resuscitation Status: Do not resuscitate
Reached after discussion with pt or family/Healthcare POA: Yes
05/09/25 17:05
DNR Bracelet Application ONCE
05/11/25 11:00
DC Protocol for Telemetry ONCE
Abnormal Lab Results
05/09/25
13:35
RBC 3.53 L 10^6/uL
(4.20-5.40)
Hgb 8.1 L g/dL
(12.0-16.0)
Hct 25.6 L %
(37.0-47.0)
MCV 72.5 L fL
(81.0-99.0)
MCH 22.9 L pg
(27.0-31.0)
MCHC 31.6 L g/dL
(33.0-37.0)
RDW 16.0 H %
(11.5-14.5)
Absolute Neuts (auto) 8.2 H 10^3/uL
(1.4-6.5)
Absolute Lymphs (auto) 0.9 L 10^3/uL
(1.2-3.4)
Neutrophils % 81.4 H %
(42.2-75.2)
Lymphocytes % 8.9 L %
(20.5-51.1)
Sodium 133 L mmol/L
(135-145)
BUN 20 H mg/dl
(7-17)
Glucose 132 H mg/dl
(70-99)
Crossmatch IS Only See Detail
05/09/25 13:35
05/09/25 13:35
Vital Signs
Initial and Last Documented VS:
Initial Vital Signs
Temp Pulse Resp BP Pulse Ox
98.8 F 95 17 105/43 99
05/09/25 13:26 05/09/25 13:26 05/09/25 13:26 05/09/25 13:26 05/09/25 13:26
Last Documented Vital Signs
Temp Pulse Resp BP Pulse Ox
98.8 F 76 18 131/64 96
05/09/25 13:26 05/09/25 19:00 05/09/25 19:00 05/09/25 18:00 05/09/25 16:28
MDM/Problems Addressed
MDM/Problems Addressed:
Given hemoglobin drop of 4 g in the past 9 months with heme positive stool will admit for IV PPIs and inpatient EGD, she is stable with no melena thus I feel that PPI infusion is not warranted at this time.
*Pulse Oximetry
SaO2: 96
Oxygen Mode of Delivery: Room air
Patient hypoxic: no
*Critical Care Note
Total Time (30-74mins, 75-104mins- exclusive of procedures): Not Applicable
ED Attending Note
-
Portions of this chart may have been created with voice recognition software.� Occasional wrong word or��sound alike� substitutions may have occurred due to the inherent limitations of voice recognition software.
Discharge Plan
Departure
Patient Disposition: Admit
Date of Disposition: 05/09/25
Time of Disposition: 16:28
Admit to: Med/Surg
Presentation/result/management discussed w/ accepting MD/DO: Hospitalist
Discharge Problem:
Symptomatic anemia
Interventions
Interventions:
*Risk Screen - Suicide Last Done: 05/09/25 13:28
*General Assessment Last Done: 05/09/25 13:28
*Neglect/Abuse Screening Last Done: 05/09/25 13:28
*ED COVID-19 Vaccine History Last Done: 05/09/25 13:28
[2025-05-09] MEDS: PROTONIX IV 40 MG IV (16:44)
--- NOTE | 2025-05-09 18:03 | CM ---
CM reviewed chart and met with pt and daughter bedside in ED. Pt lives alone in [place] community, one story home, one [address]. Both daughters live very close and are supportive.
Independent in ADLs, personal care and ambulation at baseline. Does have canes and walkers at home. Stopper driving last year.
Hx [facility] in past, no hx SNF.
PCP: Bryson Jasso
Pharmacy: [facility] [address], also uses [facility] in [place]
CM will continue to follow for all discharge planning needs.
[2025-05-09] MEDS: OMNIPAQUE 50 ML PO (18:12)
--- NOTE | 2025-05-09 18:24 | HPS.HSE ---
Addendum entered and electronically signed by Jefferson Villanueva MD 05/10/25 14:13:
Presented with ongoing weakness
Found to have symptomatic anemia with a hemoglobin of 8.1 associated dark stools.
Symptomatic acute on chronic blood loss anemia
Transfuse 1 unit PRBC now
Type and cross
Consent obtained
Give 10 mg of IV Lasix post blood transfusion
On exam noted bloating some mild distention, complaining of constipation with no bowel movement for [address] abdomen pelvis
Hyponatremia
Euvolemic, fluid restrict
Vitamin D
Continue supplementation
Original Note:
Family Physician
-
Family Physician: Bryson Jasso
Chief Complaint
-
fatigue, anemia
History of Present Illness
84 yo F PMH lymphedema, carotid artery stenosis, GERD, endometrial carcinoma (s/p hysterectomy), non-Hodgkin lymphoma, squamous cell carcinoma of skin (s/p Mohs surgery) presents to the emergency department for evaluation of low hemoglobin and
general fatigue. She has been fatigued for at least 4 to 5 weeks, saw her primary care physician late last week and outpatient labs revealed a hemoglobin of 8.0. She denies any black or bloody stool but notes she has been constipated for the past
5 days. She endorses possible dizziness. She reports occasional GERD symptoms but no overt abdominal pain. No melena. No fevers night sweats or weight loss. She is not on anticoagulants. Does not take NSAIDs routinely but does take baby aspirin
daily.
She denies excessive coffee drinking, but endorses bloating, nausea, constipation for few days. Of note, her last bowel movement was 4-5 days ago, and she typically has a BM 3x/week. She has tried magnesium citrate for her constipation to no avail.
She reports that she has undergone colonoscopies that she recalls as unremarkable.
In the ED, labs were n/f hgb of 8.1, WBC 10.0, Plt 307. ED studies n/f positive heme-occult stool test.
Hgb trend in Oct 2024: 10.3 and Jul 2024: 12.3
Medical History
Past Medical History
Past Medical History: Reports GERD
Additional Past Medical History:
Carotid artery stenosis (70%)
Endometrial carcinoma
Non-hodgkin lymphoma
Squamous cell carcinoma of skin
Past Surgical History: Reports Gynocological (hysterectomy)
Additional Past Surgical History:
Mohs surgery
Social History
Unable to obtain full social history at this time due to: Other (able to obtain full social history)
Tobacco: Non-smoker
Alcohol: None
Drug: None
Living: Alone (daughters live 2 min away, but lives alone)
Family History
Family History: Not pertinent
Allergies / Home Medications
Allergies reflects when Allergies were last updated in [email or web address].
NKDA
Home Medications with original date entered in [email or web address]
Cetirizine 10mg daily
Saline nasal mist PRN
Flavia Plus daily
Miralax PRN
Famotidine 40mg daily
Tamsulosin 0.4mg daily
Pregabalin 25mg tid
Tramadol 50mg PRN
Doxepin 100mg qhs
Ambien 10mg qhs
Furosemide 10mg 2x/week (/)
Vitamin D2 1x/week (Thu)
Aspirin 81mg
Probiotic PRN
Acetaminophen extra strength 500mg PRN
Advil 400mg PRN
Occipital block injections PRN
Metronidazole cream PRN
Allergy/Medication List:
NKDA
Review of Systems
-
Unable to obtain full review of systems at this time due to: Other (able to obtain ROS)
History Source: Patient and Family
Constitutional: Reports No Symptoms
EENT: Reports No Symptoms
Respiratory: Reports No Symptoms
Cardiac: Reports No Symptoms
Abdomen/GI: Reports Nausea and Other (bloating)
: Reports No Symptoms
Musculoskeletal: Reports No Symptoms
Skin: Reports No Symptoms
Neurological: Reports Dizzy
Endocrine: Reports No Symptoms
Hematologic/Lymphatic: Reports No Symptoms
Psych: Reports No Symptoms
Physical Exam
Vital Signs
Vital Signs
Temp Pulse Resp BP Pulse Ox
98.8 F 78 18 98/83 96
05/09/25 13:26 05/09/25 16:00 05/09/25 16:05 05/09/25 16:00 05/09/25 16:28
Physical Exam
General: No Apparent Distress
HEENT: NormoCephalic and Anicteric
Respiratory: Clear
Cardiac: S1/S2, Regular Rhythm and Other (no murmurs on my exam)
GI: Soft, Non Tender and Distended
Musculoskeletal: Other (1+ lower extremity edema b/l)
Skin: Warm, Dry and Other (not jaundiced)
Neuro: Awake, Alert and Nonfocal/grossly intact
Psych: Calm
Laboratory Results
-
05/09/25 13:35
05/09/25 13:35
Laboratory Results
Total Bilirubin 0.5 mg/dl (0.2-1.3) 05/09/25 13:35
AST 20 U/L (14-36) 05/09/25 13:35
ALT 16 U/L (0-35) 05/09/25 13:35
Alkaline Phosphatase 122 U/L (38-126) 05/09/25 13:35
Impression/Plan
-
84 yo F p/w symptomatic anemia due to fatigue and occasional dizziness for 4-5 weeks duration now found to be positive on heme-occult testing most concerning for an upper GI bleed. She also endorses ongoing constipation, nausea with her last bowel
movement 4-5 days ago. Her PMH is n/f lymphedema, carotid artery stenosis, GERD, endometrial carcinoma (s/p hysterectomy), non-Hodgkin lymphoma, squamous cell carcinoma of skin (s/p Mohs surgery)
# Upper GI bleed
# Symptomatic anemia
Hgb is 8.1, down from 10.3 in Oct 2024 and 12.3 in 07/2024.
- 2x IV access
- IV PPI pantoprazole 40mg bid
- Diet: clears, avoid red colored foods; NPO after midnight
- Med rec: hold aspirin
- Given symptomatic, and Hgb at 8.1, plan for transfuse 1u pRBC now (consent has been obtained)
- After transfusion is complete, 10mg furosemide for lymphedema
- GI consult ordered
# Constipation, Nausea
- Ongoing for several days
- Has not had a BM
- Hold at home bowel regimen (she reports taking miralax and senna at home)
- Diet: clears, avoid red colored foods; NPO after midnight
- Plan for urgent CT A/P w/ IV and oral contrast
DVT ppx: SCDs
Code status: DNR
Diet: Clears, avoid red colored foods; NPO after midnight
Disposition: pending clinical workup
[2025-05-09] MEDS: SINEQUAN 100 MG PO (21:30)
[2025-05-09] MEDS: PROTONIX 40 MG PO (21:30)
[2025-05-09] MEDS: RESTASIS 0.05% OPHTHALMIC EMULSION 1 DROPS BOTH EYES (21:30)
[2025-05-09] MEDS: NSS 1000 IV (21:31)
[2025-05-09] MEDS: LYRICA 25 MG PO (23:31)
[2025-05-10] VITALS (7 sets, daily range): BP systolic 115–136; BP diastolic 60–79
[2025-05-10] MEDS: LASIX 10 MG IV (02:11)
--- NOTE | 2025-05-10 05:18 | TRANSFER ---
Pt came to 3W from ED via stretcher. Pt ambulated to hospital bed. Pt oriented to room, call loomis within reach, plan of care ongoing.
[2025-05-10 05:51] LABS: Hematocrit 28.0 % (37.0-47.0); Hemoglobin 9.1 g/dL (12.0-16.0); Mean Corp Hgb Conc. 32.5 g/dL (33.0-37.0); Mean Corpuscular Volume 73.5 fL (81.0-99.0); Platelet Count 275 10^3/uL (130-400); Red Cell Dist. Width 17.0 % (11.5-14.5)
[2025-05-10 06:09] LABS: Blood Urea Nitrogen 16 mg/dl (7-17); Calcium 8.4 mg/dl (8.4-10.2); Carbon Dioxide 25 mmol/L (22-30); Chloride 105 mmol/L (98-107); Estimated Creatinine Clearance 40 ml/min; Glucose 87 mg/dl (70-99); Potassium 4.0 mmol/L (3.5-5.1); Sodium 136 mmol/L (135-145); eGFR > 60.00
--- NOTE | 2025-05-10 07:30 | W.PN.HOSP.TC ---
Addendum entered and electronically signed by Jefferson Villanueva MD 05/11/25 14:48:
Symptomatic acute on chronic blood loss anemia
S/p 1 unit PRBC with appropriate improvement
Discussed case with GI, they are agreeable to bidirectional scope on 05/12 or 05/13
Plan for 2-day bowel prep
May need colorectal surgery backup if further worsening distention and hardness abdominal pain
CT abdomen pelvis with contrast demonstrating thickening at the ascending colon/ileum along with local lymph node enlargement
--Likely findings consistent with neoplasm
-Daughter at bedside updated of findings and plan
Hyponatremia, resolved
Vitamin D
Continue supplementation
Original Note:
Today's Communication/Plan
-
- suppository
- discontinue IV fluids
- clear liquid diet
- 2 days of bowel prep with colonoscopy / EGD Thursday
Assessment / Plan
Assessment / Plan
84 yo F p/w symptomatic anemia, positive heme-occult testing and with CT A/P imaging findings currently most suspicious for neoplasm. She also endorses ongoing constipation, nausea with her last bowel movement 4-5 days ago. Her PMH is n/f
lymphedema, carotid artery stenosis, GERD, endometrial carcinoma (s/p hysterectomy), non-Hodgkin lymphoma, squamous cell carcinoma of skin (s/p Mohs surgery)
# Symptomatic anemia, currently most suspicious for neoplasm
Hgb appropriately barry to 9.1
CT A/P is concerning for neoplasm but biopsy required with colonoscopy
- IV PPI pantoprazole 40mg bid
- Diet: clears, avoid red colored foods; NPO for Thursday morning
- Med rec: hold aspirin
- GI rec: 2 days of bowel prep and EGD and colonoscopy on Thursday
- IV fluids discontinued today, but will be restarted on Thursday once she goes NPO in preparation for GI colonoscopy, endoscopy
# Constipation, Nausea
- Ongoing for several days
- Has not had a BM, but passing flatus
- CT A/P showed no evidence of a bowel obstruction
- 2 days of bowel prep per GI should help with constipation
- Suppository also ordered
# Chronic pain
- Home tramadol 50mg PO q8h prn started
DVT ppx: SCDs
Code status: DNR
Diet: Clears, avoid red colored foods
Disposition: pending clinical workup
Anticipated Discharge: > 48 hours
Subjective/Interval History
-
Date of Service: May 10, 2025
She feels well. GI said plan for scope Thursday.
Interim events: 1u pRBC, CT AP w IV and oral contrast.
Objective Data
-
Labs:
Laboratory Results
05/10/25
05:08
WBC 7.4
Hgb 9.1 L
Hct 28.0 L
Plt Count 275
Sodium 136
Potassium 4.0
Chloride 105
Carbon Dioxide 25
BUN 16
Creatinine 0.8
Glucose 87
Calcium 8.4
Imaging:
CT AP w IV and oral contrast 05/09/2025:
IMPRESSION:
Cecum and ascending colon wall thickening, as described. Although possibly infectious or inflammatory, the overall appearance is more concerning for neoplasm. No evidence of pneumatosis. There are numerous right lower quadrant mesenteric lymph nodes
present measuring up to 1.2 cm. Recommend follow-up colonoscopy.
No evidence of bowel obstruction.
Mild to moderate colonic fecal burden.
Mild sigmoid diverticulosis without acute diverticulitis.
Trace free pelvic fluid.
Vital Signs:
Vital Signs
Temp Pulse Resp BP Pulse Ox
98.3 F 84 16 119/79 98
05/10/25 11:30 05/10/25 11:30 05/10/25 11:30 05/10/25 11:30 05/10/25 11:30
I&O
05/09/25 05/10/25 05/11/25
06:59 06:59 06:59
Intake Total 250 / 250
Balance 250 / 250
Review of Systems
-
History Source: Patient
Constitutional: Reports No Symptoms
EENT: Reports No Symptoms Reported
Respiratory: Reports No Symptoms
Cardiac: Reports No Symptoms
Abdomen/GI: Reports Bloated
Genitourinary: Reports No Symptoms
Musculoskeletal: Reports No Symptoms
Skin: Reports No Symptoms
Neuro: Reports No Symptoms
Physical Exam
-
General: No Apparent Distress
HEENT: Normocephalic and Atraumatic
Respiratory: Clear to Auscultation
Cardiac: Regular Rhythm and Other (no murmurs on my exam)
GI: Nontender and Distended
Musculoskeletal: Other (trace to 1+ CARROLL )
Skin: Warm and Dry
Neuro: Awake and Alert
Psych: Calm
[2025-05-10] MEDS: RESTASIS 0.05% OPHTHALMIC EMULSION 1 DROPS BOTH EYES ×2 (08:48→20:48)
[2025-05-10] MEDS: LYRICA 25 MG PO ×3 (08:48→21:56)
[2025-05-10] MEDS: PROTONIX 40 MG PO ×2 (08:48→20:47)
[2025-05-10] MEDS: ZYRTEC 10 MG PO (08:48)
[2025-05-10] MEDS: FLOMAX 0.4 MG PO (08:48)
--- NOTE | 2025-05-10 09:17 | CON.GI ---
Addendum entered and electronically signed by Antony Spence DO 05/22/25 06:52:
ADDENDUM: The Resident's note was reviewed and I agree with the note as detailed below.
Original Note:
Consultation
-
Date/Time Consultation Requested: 05/09/25 19:14
Date/Time Consultation Performed: 05/10/25 08:45
Requesting Provider: Yan Ta MD (Resident)
Performing Provider: Sixto Whitaker DO (Resident); Antony Spence DO
Reason for Consultation: Symptomatic Anemia, Heme Positive Stool
Medical History
Chief Complaint / HPI
Chief Complaint: Fatigue
History of Present Illness:
Radha Maldonado is a 84F with a PMHx of HTN, carotid artery stenosis, GERD, endometrial CA (status post hysterectomy), non-Hodgkin lymphoma, squamous cell carcinoma of the skin (status post Mohs) who presented to the emergency department yesterday
with fatigue for approximately 4 weeks. Patient states that she has been unusually fatigued most days of the week for the past 4 weeks. She is usually a morning person, however by the time she eats breakfast she is already tired. Patient went to
see her PCP 1 week ago and labs were ordered. Hemoglobin was 8.0 with a relative decrease from 10.3 6 months ago and 12.3 8 months ago. Otherwise denies any fevers, chills, night sweats, weight loss, hematemesis, dysphagia, melena, hematochezia,
dizziness, CP, SOB. Endorses colonoscopies in the past that were negative, but unsure when.
Patient also notes constipation x 5 days. Notes that she normally has stools approximately 3 days per week and uses magnesium citrate and SennaPlus which usually help her constipation, but has not helped this time around. Notes some bloating and
abdominal discomfort with this but denies overt abdominal pain.
Patient is s/p 1u pRBC and states that she feels okay today, and not as fatigued as on past days. Notes she is still constipated.
Past Medical History
Past Medical History: Other (HTN, carotid artery stenosis, GERD, endometrial CA (s/p hysterectomy), non-Hodgkin lymphoma, squamous cell carcinoma skin (status post Mohs))
Past Surgical History: Urological and Other (Mohs)
Social History
Tobacco: Non-Smoker
Alcohol: None
Drug: None
Personal:
Living: With Family
Family History
Family History: Reviewed & Not Pertinent
Allergies / Home Medications
Allergy/AdvReac Type Severity Reaction Status Date / Time
pollen extracts Allergy [facility] Verified 05/09/25 17:54
ALLERGIES-sneezing,
watery eyes
�Medication �Instructions �Recorded
cetirizine 10 mg tablet (All Day 10 mg PO DAILY Allergies 01/09/22
Allergy (cetirizine))
sennosides 8.6 mg-docusate sodium 2 ea PO QPM Constipation 01/09/22
50 mg tablet (Senna-S)
cyclosporine 0.05 % eye drops in a 1 drp BOTH EYES BID Eye Condition 08/05/24
dropperette (Restasis)
doxepin 100 mg capsule 100 mg PO HS Depression 08/05/24
ergocalciferol (vitamin D2) 1,250 1,250 mcg PO SA Supplement 08/05/24
mcg (50,000 unit) capsule
famotidine 40 mg tablet 40 mg PO DAILY@1200 08/05/24
Gastrointestinal Issue
pregabalin 25 mg capsule 25 mg PO TID neuropathic pain 08/05/24
tramadol 50 mg tablet 50 mg PO Q8HPRN PRN moderate pain 08/05/24
tamsulosin 0.4 mg capsule (Flomax) 0.4 mg PO DAILY #30 caps 08/10/24
aspirin 81 mg tablet,delayed 81 mg PO DAILY 05/09/25
release
furosemide 20 mg tablet (Lasix) 10 mg PO MOTH 05/09/25
polyethylene glycol 3350 17 gram 17 g PO DAILYPRN PRN CONSTIPATION 05/09/25
oral powder packet (HealthyLax)
sodium chloride 0.65 % nasal spray 1 spray intranasal DAILYPRN PRN 05/09/25
aerosol ([place] Saline) ALLERGIES
zolpidem 10 mg tablet (Ambien) 10 mg PO HS 05/09/25
Review of Systems
-
All other systems: A 12 pt ROS was Negative except as stated above in HPI
Vital Signs
Temp Pulse Resp BP Pulse Ox
97.9 F 81 16 136/74 95
05/10/25 07:30 05/10/25 07:30 05/10/25 07:30 05/10/25 07:30 05/10/25 07:30
Physical Exam
Exam
General: No Apparent Distress; Negative Pain, Fever or Chills
HEENT: Anicteric
Respiratory: Clear
Cardiac: S1/S2 and Regular Rhythm
GI: Soft (but protuberant), Non Tender and Normal Bowel Sounds
Skin: Warm
Neuro: Awake and Alert
Psych: Calm
Results
WBC 7.4 10^3/uL (4.8-10.8) 05/10/25 05:08
Hgb 9.1 g/dL (12.0-16.0) L 05/10/25 05:08
Hct 28.0 % (37.0-47.0) L 05/10/25 05:08
MCV 73.5 fL (81.0-99.0) L 05/10/25 05:08
Plt Count 275 10^3/uL (130-400) 05/10/25 05:08
Absolute Neuts (auto) 8.2 10^3/uL (1.4-6.5) H 05/09/25 13:35
Sodium 136 mmol/L (135-145) 05/10/25 05:08
Potassium 4.0 mmol/L (3.5-5.1) 05/10/25 05:08
Chloride 105 mmol/L (98-107) 05/10/25 05:08
Carbon Dioxide 25 mmol/L (22-30) 05/10/25 05:08
BUN 16 mg/dl (7-17) 05/10/25 05:08
Creatinine 0.8 mg/dL (0.6-1.0) 05/10/25 05:08
Calcium 8.4 mg/dl (8.4-10.2) 05/10/25 05:08
Total Bilirubin 0.5 mg/dl (0.2-1.3) 05/09/25 13:35
AST 20 U/L (14-36) 05/09/25 13:35
ALT 16 U/L (0-35) 05/09/25 13:35
Alkaline Phosphatase 122 U/L (38-126) 05/09/25 13:35
Diagnostic Image Results:
CT abd/pelv (05/09): Cecum and ascending colon wall thickening, as described. Although possibly infectious or inflammatory, the overall appearance is more concerning for neoplasm. No evidence of pneumatosis. There are numerous right lower quadrant
mesenteric lymph nodes present measuring up to 1.2 cm. Recommend follow-up colonoscopy. No evidence of bowel obstruction. Mild to moderate colonic fecal burden. Mild sigmoid diverticulosis without acute diverticulitis. Trace free pelvic fluid.
Assessment / Plan
-
Mrs. Mack is a 84F who presented to the emergency department with 4 weeks of fatigue that is unusual for her and after obtaining outpatient labs that showed a Hb of 8.0 which represents a 2 point drop from previous labs 6 months ago. In the ED,
patient was with stable vital signs but exhibited a protuberant abdomen and Heme+ stool. Hb was 8.1, Hct was 25.6, MCV was 73.8 and RDW was 17.0. Iron was 24 with 8% saturation but normal ferritin and TIBC. This likely represents a more chronic
bleeding state and the beginning stages of iron deficiency. She is s/p 1 u pRBCs today with improvement in symptoms. The patient had heme+ stool and CT Abd/Pelv showing large amount of asymmetric and heterogenous enhancing wall thickening involving
the cecum, proximal to mid ascending colon, terminal ileum. Although differential diagnosis includes infectious and inflammatory causes, overall appearance was more concerning for neoplasm. The patient would benefit from bidirectional endoscopy to
explore a source of the bleed as well as the bowel sections of concern above.
#Occult GI Bleed
#Symptomatic Microcytic Iron Deficiency Anemia
#Bowel Wall Thickening on CT
#Constipation
-Plan for bidirectional endoscopy tomorrow
-CLD today, strict NPO after midnight
-Daily CBC, x-fuse for Hb < 7
-IV PPI BID
-SuPrep should relieve constipation
Total Time Spent with Patient (in minutes): 31
Data Reviewed
-
CT Scan: Image Personally Visualized and interpreted and Report Reviewed by me
-
-
Thank you for consultation and allowing me to participate in the patient's care. Please call the online media [facility] GI physician during the after hours with any questions or concerns.
[2025-05-10] MEDS: ULTRAM 50 MG PO ×2 (10:35→19:40)
--- NOTE | 2025-05-10 11:31 | W.PN.UPDATE ---
Update Note
Progress Note Update
reviewed CT with patient and family. concern for right cecal and ascending thickening, mass vs inflammatory process on obstruction. In review with pt no stool for 6 days with mag citrate, senna and CT contrast orally with still no stools. Will give
enema now. Encouraged ambulation- OOB. Will try slow prep for colon as reviewed with dr. Spence. If not tolerating prep consider colorectal consult and gastrograffin enema study.
[2025-05-10] MEDS: NSS IV (13:19)
[2025-05-10] MEDS: DULCOLAX 10 MG RECTAL (13:25)
[2025-05-10] MEDS: NULYTELY SOLUTION 2 LITERS PO (15:08)
[2025-05-10] MEDS: SINEQUAN 100 MG PO (21:56)
[2025-05-11 03:34] VITALS: BP 115/64
--- NOTE | 2025-05-11 05:39 | W.PN.GI.CBS2 ---
Today's Communication / Plan
-
Continue two-day prep today with plans for EGD/Colon tomorrow, 05/12/2025. Keep NPO at MN- except for prep. See rest of care as outlined below.
Assessment / Plan
-
#Occult GI Bleed
#YAMILETH #Symptomatic Anemia
#Abnormal CT Imaging (Cecal/Ascending colonic wall thickening- c/f neoplasm)
#Constipation #Nausea 2/2 #Increased Stool [place]
Ms Mack is a 84 y.o female with a past medical history of lymphedema, carotid artery stenosis, endometrial carcinoma (s/p hysterectomy), and non-Hodgkin lymphoma who presented to the ED with symptomatic anemia. Denies any prior dark and/or bloody
stools during this time but notes progressive weakness and fatigue where she had outpatient labs demonstrating a Hgb 8s. She denies any prior hx of GI bleeding in the past. No prior EGD, but reports her last colonoscopy was approximately 10 years
ago. Otherwise, she denies any unintentional weight loss. Labs in ED found to have a Hgb 8s and labs consistent with iron deficiency anemia. Given her worsening abdominal discomfort and bloating CT imaging was also obtained. CT Abd/pelvis 05/09
revealed cecal and ascending colonic wall thickening concerning for a neoplastic process with numerous right lower quadrant mesenteric lymphadenopathy along with mild to moderate fecal burden. Given her symptomatic anemia and concern for her change
in bowel habits with constipation, and CT imaging highly concerning for colonic malignancy resulting in an occult GI bleed. She would benefit from both an EGD and Colonoscopy given her YAMILETH, although again suspect an underlying colonic neoplastic
process. Would benefit from an extended, slow two-day prep given her marked fecal burden along with her previous abdominal discomfort. In the meantime, okay for CLD and would start IV iron along with trending Hbg with serial CBC.
Recommendations:
- Continue CLD, keep NPO at MN (except for prep)
- Trend Hgb with serial CBC, transfuse as needed
- Empiric PPI for now
- IV iron while inpatient given iron sat 8%
- Continue large volume prep with Nulytely this afternoon
- Plan for EGD and Colonoscopy tomorrow, 05/12/2025, given two-day prep
- Avoidance of all NSAIDs
- Rest of care as per primary team
GI will continue to follow. Please call with any questions or concerns.
Subjective
Subjective
Date of Service: May 11, 2025
- Started gentle bowel prep on 05/10, having formed hard brown stools
- Otherwise, no acute events overnight
Tolerating prep this AM, still with liquid brown stools. Denies any abdominal pain or nausea/vomiting and reports improving symptoms after bowel purge. Discussed plans for both EGD/Colon tomorrow at bedside this AM.
Objective
Data Reviewed
Laboratory Data:
Laboratory Results
Total Bilirubin 0.5 mg/dl (0.2-1.3) 05/09/25 13:35
AST 20 U/L (14-36) 05/09/25 13:35
ALT 16 U/L (0-35) 05/09/25 13:35
Alkaline Phosphatase 122 U/L (38-126) 05/09/25 13:35
Vital Signs and I&O:
Vital Signs
Temp Pulse Resp BP Pulse Ox
97.4 F 78 16 115/64 94
05/11/25 03:34 05/11/25 03:34 05/11/25 03:34 05/11/25 03:34 05/11/25 03:34
I&O
05/09/25 05/10/25 05/11/25
06:59 06:59 06:59
Intake Total 250 / 250
Balance 250 / 250
Physical Exam
Physical Exam
HEENT: Anicteric and Moist mucous membranes
Pulmonary: Other (Normal WOB on room air)
GI: Soft, Non Distended and Non Tender
Extremities: No Edema
Neuro: Non Focal
[2025-05-11 05:49] LABS: Hematocrit 28.6 % (37.0-47.0); Hemoglobin 9.3 g/dL (12.0-16.0); Mean Corp Hgb Conc. 32.5 g/dL (33.0-37.0); Mean Corpuscular Volume 73.0 fL (81.0-99.0); Platelet Count 253 10^3/uL (130-400); Red Cell Dist. Width 17.0 % (11.5-14.5)
[2025-05-11 06:18] LABS: Blood Urea Nitrogen 11 mg/dl (7-17); Calcium 8.2 mg/dl (8.4-10.2); Carbon Dioxide 24 mmol/L (22-30); Chloride 105 mmol/L (98-107); Estimated Creatinine Clearance 46 ml/min; Glucose 82 mg/dl (70-99); Potassium 4.3 mmol/L (3.5-5.1); Sodium 135 mmol/L (135-145); eGFR > 60.00
[2025-05-11 07:42] VITALS: BP 104/49
--- NOTE | 2025-05-11 08:02 | W.PN.HOSP.TC ---
Addendum entered and electronically signed by Jefferson Villanueva MD 05/11/25 14:49:
Symptomatic acute on chronic blood loss anemia
S/p 1 unit PRBC with appropriate improvement
Discussed case with GI, they are agreeable to bidirectional scope on 05/12 or 05/13
Plan for 2-day bowel prep, npo aftermidnight, start isotonic fluids
May need colorectal surgery backup if further worsening distention and hardness abdominal pain
CT abdomen pelvis with contrast demonstrating thickening at the ascending colon/ileum along with local lymph node enlargement
--Likely findings consistent with neoplasm
-Daughter at bedside updated of findings and plan
Hyponatremia, resolved
Vitamin D
Continue supplementation
Original Note:
Today's Communication/Plan
-
- continue colonoscopy prep
- NPO from midnight
Assessment / Plan
Assessment / Plan
84 yo F p/w symptomatic anemia, positive heme-occult testing and with CT A/P imaging findings currently most suspicious for colorectal neoplasm. Her PMH is n/f lymphedema, carotid artery stenosis, GERD, endometrial carcinoma (s/p hysterectomy),
non-Hodgkin lymphoma, squamous cell carcinoma of skin (s/p Mohs surgery)
# Symptomatic anemia, currently most suspicious for colorectal neoplasm
Hgb stable at 9.3
CT A/P is concerning for neoplasm but biopsy required with colonoscopy
- IV PPI pantoprazole 40mg bid
- Diet: clears, avoid red colored foods; NPO for Thursday morning
- Med rec: hold aspirin
- GI rec: continue bowel prep today and EGD and colonoscopy on Thursday
- Will start IV fluids NSS after midnight when she goes NPO
# Constipation, Nausea - resolved
- Improved nausea
- Improved bloating
- Has had multiple BMs due to colonoscopy prep
# Chronic pain
- Home tramadol 50mg PO q8h prn started
DVT ppx: SCDs
Code status: DNR
Diet: Clears, avoid red colored foods, NPO from midnight
Disposition: pending clinical workup
Anticipated Discharge: 24 - 48 hours
Subjective/Interval History
-
Date of Service: May 11, 2025
taking colo prep with no issues, multiple BMs yesterday ambulated to bathroom with support. ambualted around hallway
feels well
feels blaoating is improved
denies chest pain, dyspnea
Objective Data
-
Labs:
Laboratory Results
05/11/25
05:13
WBC 8.8
Hgb 9.3 L
Hct 28.6 L
Plt Count 253
Sodium 135
Potassium 4.3
Chloride 105
Carbon Dioxide 24
BUN 11
Creatinine 0.7
Glucose 82
Calcium 8.2 L
Hgb 9.3
Electrolytes within normal limtits
Vital Signs:
Vital Signs
Temp Pulse Resp BP Pulse Ox
98.5 F 89 17 104/49 96
05/11/25 07:42 05/11/25 07:42 05/11/25 07:42 05/11/25 07:42 05/11/25 07:42
I&O
05/10/25 05/11/25 05/12/25
06:59 06:59 06:59
Intake Total 250 / 250 960 / 960
Balance 250 / 250 960 / 960
Physical Exam
-
General: No Apparent Distress
HEENT: Normocephalic and Atraumatic
Respiratory: Clear to Auscultation
Cardiac: Regular Rhythm
GI: Distended (improved from prior)
Musculoskeletal: Other (trace CARROLL)
Skin: Warm and Dry
Neuro: Awake and Alert
Psych: Calm
[2025-05-11] MEDS: RESTASIS 0.05% OPHTHALMIC EMULSION 1 DROPS BOTH EYES ×2 (08:39→22:30)
[2025-05-11] MEDS: ZYRTEC 10 MG PO (08:39)
[2025-05-11] MEDS: PROTONIX 40 MG PO ×2 (08:39→22:24)
[2025-05-11] MEDS: LYRICA 25 MG PO ×3 (08:39→22:25)
[2025-05-11] MEDS: FLOMAX 0.4 MG PO (08:39)
[2025-05-11] MEDS: OCEAN, SALINE MIST 1 SPRAYS NASAL (08:40)
[2025-05-11] MEDS: ULTRAM 50 MG PO (08:42)
[2025-05-11 11:16] VITALS: BP 128/69
[2025-05-11] MEDS: NULYTELY SOLUTION 4 LITERS PO (15:03)
[2025-05-11 15:33] VITALS: BP 126/66
[2025-05-11 19:30] VITALS: BP 131/69
[2025-05-11] MEDS: SINEQUAN 100 MG PO (22:25)
[2025-05-11 23:20] VITALS: BP 128/74
[2025-05-12] VITALS (9 sets, daily range): BP systolic 10–157; BP diastolic 57–104; BMI 25.0
[2025-05-12] MEDS: NSS 1000 IV ×2 (00:10→16:19)
[2025-05-12] MEDS: LYRICA PO (07:03)
[2025-05-12] MEDS: ZYRTEC PO (07:03)
[2025-05-12] MEDS: FLOMAX PO (07:03)
[2025-05-12] MEDS: PROTONIX PO (07:03)
--- NOTE | 2025-05-12 07:03 | W.PN.HOSP.TC ---
Addendum entered and electronically signed by Jefferson Villanueva MD 05/12/25 13:34:
Symptomatic acute on chronic blood loss anemia
S/p 1 unit PRBC with appropriate improvement
Completed C-scope on 05/12/2025, noted ulcerative lesion, per GI consistent with likely malignancy
Colorectal surgery planning for operative intervention
CT abdomen pelvis with contrast demonstrating thickening at the ascending colon/ileum along with local lymph node enlargement
--Likely findings consistent with neoplasm follow-up on C-scope biopsy result
-Daughter at bedside updated of findings and plan
Hyponatremia, resolved
Vitamin D
Continue supplementation
Original Note:
Today's Communication/Plan
-
- Colonoscopy revealed large mass most concerning for malignancy, f/u biopsy results
- GI has advanced diet to clear liquids
- If tolerating clear liquids diet, can discontinue fluids today
- follow-up colorectal surgery recommendations
Assessment / Plan
Assessment / Plan
84 yo F p/w symptomatic anemia, positive heme-occult testing who underwent colonoscopy that shows an ulcerated mass most concerning for colorectal cancer. Her PMH is n/f lymphedema, carotid artery stenosis, GERD, endometrial carcinoma (s/p
hysterectomy), non-Hodgkin lymphoma, squamous cell carcinoma of skin (s/p Mohs surgery)
# Symptomatic anemia, currently most suspicious for colorectal cancer
Colonoscopy revealed an ulcerated completely obstructing mass in ascending colon most concerning for malignancy.
The obstructing nature of the mass can explain previously reported symptoms of constipation, nausea, bloating.
Hgb stable at 10.5
- IV PPI pantoprazole 40mg bid
- Diet: Clear liquids per GI
- Med rec: hold aspirin
- follow-up biopsy results
- GI is following
- Colorectal surgery has been consulted
# Constipation, Nausea - resolved
# Chronic pain
- Home tramadol 50mg PO q8h prn
DVT ppx: SCDs
Code status: DNR
Diet: Clears
Disposition: pending clinical workup
Anticipated Discharge: > 48 hours
Subjective/Interval History
-
Date of Service: May 12, 2025
She feels well this morning, has been having Bowel movements with colonoscopy prep.
Feels that the bloating has decreased.
Colonoscopy performed today
Objective Data
-
Labs:
Laboratory Results
05/12/25
06:00
WBC Pending
Hgb Pending
Hct Pending
Plt Count Pending
Sodium Pending
Potassium Pending
Chloride Pending
Carbon Dioxide Pending
BUN Pending
Creatinine Pending
Glucose Pending
Calcium Pending
WBC 10.2
Hgb 10.5
Plt 249
Na 138
K 4.3
Cl 109
bicarb 20
Cr 0.7
Procedures:
colonoscopy 05/12/2025:
Findings:
- Hemorrhoids were found during retroflexion. The hemorrhoids were
small.
- A few small-mouthed and medium-mouthed diverticula were found in
the sigmoid colon.
- An ulcerated completely obstructing large mass was found in the
ascending colon. The mass was circumferential. No bleeding was
present. Biopsies were taken with a cold forceps for histology.
Area was tattooed with an injection of 0.5 mL of Spot (carbon black)
after saline injection about 5 cm distal on two places. Could be
ischemia but around the ulceration was hard c/w more likely
malignancy as well as location in ascending colon.
Impression:
- Hemorrhoids.
- Diverticulosis in the sigmoid colon.
- Likely malignant completely obstructing tumor in the ascending
colon. Biopsied. Tattooed.
Vital Signs:
Vital Signs
Temp Pulse Resp BP Pulse Ox
97.9 F 95 18 142/92 100
05/12/25 03:15 05/12/25 03:15 05/12/25 03:15 05/12/25 03:15 05/12/25 03:15
I&O
05/11/25 05/12/25 05/13/25
06:59 06:59 06:59
Intake Total 960 / 960 360 / 360
Balance 960 / 960 360 / 360
Review of Systems
-
History Source: Patient
Constitutional: Reports No Symptoms
EENT: Reports No Symptoms Reported
Respiratory: Reports No Symptoms
Cardiac: Reports No Symptoms
Abdomen/GI: Reports Bloated (improved)
Genitourinary: Reports No Symptoms
Musculoskeletal: Reports No Symptoms
Skin: Reports No Symptoms
Neuro: Reports No Symptoms
Hematologic / Lymphatic: Reports No Symptoms
Physical Exam
-
General: No Apparent Distress
HEENT: Normocephalic and Atraumatic
Respiratory: Clear to Auscultation
Cardiac: Regular Rhythm and Murmur (no murmurs on my exam)
GI: Other (bloating appears improved)
Musculoskeletal: Other (trace to 1+ CARROLL b/l)
Skin: Warm and Dry
Neuro: Awake and Alert
Psych: Calm
[2025-05-12] MEDS: RESTASIS 0.05% OPHTHALMIC EMULSION 1 DROPS BOTH EYES ×2 (07:43→20:52)
[2025-05-12 07:57] LABS: Hematocrit 32.9 % (37.0-47.0); Hemoglobin 10.5 g/dL (12.0-16.0); Mean Corp Hgb Conc. 31.9 g/dL (33.0-37.0); Mean Corpuscular Volume 74.1 fL (81.0-99.0); Platelet Count 249 10^3/uL (130-400); Red Cell Dist. Width 17.3 % (11.5-14.5)
[2025-05-12 08:47] LABS: Blood Urea Nitrogen 9 mg/dl (7-17); Calcium 8.8 mg/dl (8.4-10.2); Carbon Dioxide 20 mmol/L (22-30); Chloride 109 mmol/L (98-107); Estimated Creatinine Clearance 46 ml/min; Glucose 75 mg/dl (70-99); Potassium 4.3 mmol/L (3.5-5.1); Sodium 138 mmol/L (135-145); eGFR > 60.00
[2025-05-12] MEDS: ULTRAM 50 MG PO (13:53)
[2025-05-12] MEDS: LYRICA 25 MG PO ×2 (15:01→20:53)
[2025-05-12] MEDS: ZYRTEC 10 MG PO (15:01)
--- NOTE | 2025-05-12 15:55 | CON.CRS ---
Consultation
-
Date/Time Consultation Requested: 09
Date/Time Consultation Performed: 1030
Requesting Provider: Dr. Arguelles
Performing Provider: Dr. Walker
Reason for Consultation: Right colon mass
Medical History
-
Chief Complaint: Anemia, fatigue
History of Present Illness:
84 yo F with hx of endometrial ca s/p lap hysterectomy, carotid stenosis, treated non-Hodgkin lymphoma, migraines who was admitted to 05/09 with weeks of fatigue and outpatient labs showing anemia, transfused 1u RBCs, and ultimately found to have
R colon mass with possible lymphadenopathy on CT with colonoscopy today showing near-complete obstructing tumor, awaiting pathology results. Colorectal surgery consulted for further management.
Past Medical History
Past Medical History: Other (Endometrial cancer, carotid stenosis, NHL, migraines, hyponatremia)
Past Surgical History: Gynecological and Other (Open inguinal hernia)
Social History
Drug: None
Personal:
Living: Alone
Family History
Family History: Reviewed & Noncontributory
Allergies / Home Medications
Allergy/AdvReac Type Severity Reaction Status Date / Time
pollen extracts [facility] Verified 05/09/25 17:54
ALLERGIES-sneezing,
watery eyes
�Medication �Instructions �Recorded �Confirmed �Type
cetirizine 10 mg tablet (All Day 10 mg PO DAILY Allergies 01/09/22 05/09/25 History
Allergy (cetirizine))
sennosides 8.6 mg-docusate sodium 2 ea PO QPM Constipation 01/09/22 05/09/25 History
50 mg tablet (Senna-S)
cyclosporine 0.05 % eye drops in a 1 drp BOTH EYES BID dry eyes 08/05/24 05/09/25 History
dropperette (Restasis)
doxepin 100 mg capsule 100 mg PO HS Depression 08/05/24 05/09/25 History
ergocalciferol (vitamin D2) 1,250 1,250 mcg PO SA Supplement 08/05/24 05/09/25 History
mcg (50,000 unit) capsule
famotidine 40 mg tablet 40 mg PO DAILY@1200 08/05/24 05/09/25 History
Gastrointestinal Issue
pregabalin 25 mg capsule 25 mg PO TID neuropathic pain 08/05/24 05/09/25 History
tramadol 50 mg tablet 50 mg PO Q8HPRN PRN moderate pain 08/05/24 05/09/25 History
tamsulosin 0.4 mg capsule (Flomax) 0.4 mg PO DAILY #30 caps 08/10/24 05/09/25 Rx
aspirin 81 mg tablet,delayed 81 mg PO DAILY Blood Clot 05/09/25 05/09/25 History
release Prevention/Tx
furosemide 20 mg tablet (Lasix) 10 mg PO MOTH Fluid 05/09/25 05/09/25 History
Retention/Swelling
polyethylene glycol 3350 17 gram 17 g PO DAILYPRN PRN constipation 05/09/25 05/09/25 History
oral powder packet (HealthyLax)
sodium chloride 0.65 % nasal spray 1 spray intranasal DAILYPRN PRN 05/09/25 05/09/25 History
aerosol ([place] Saline) allergies/dryness
zolpidem 10 mg tablet (Ambien) 10 mg PO HS Sleep 05/09/25 05/09/25 History
Review of Systems
-
Constitutional: Fatigue
EENT: No Symptoms
Respiratory: No Symptoms
Cardiac: No Symptoms
Abdomen/GI: No Symptoms
: No Symptoms
Musculoskeletal: Joint Pain and Other (Back pain)
Skin: No Symptoms
Neurological: No Symptoms
Endocrine: No Symptoms
Hematologic/Lymphatic: No Symptoms
A 10 point review of systems was completed, and was negative except as per HPI.
Physical Exam
Vital Signs
Temp 98.5 F 05/12/25 14:57
Pulse 87 05/12/25 14:57
Resp Rate 16 05/12/25 14:57
Blood pressure 157/82 05/12/25 14:57
SaO2 98 05/12/25 14:57
Body Mass Index (BMI) 25.0
Lab Results / Allergies
05/12/25 07:49
05/12/25 07:49
WBC 10.2 10^3/uL (4.8-10.8) 05/12/25 07:49
Hgb 10.5 g/dL (12.0-16.0) L 05/12/25 07:49
Hct 32.9 % (37.0-47.0) L 05/12/25 07:49
Plt Count 249 10^3/uL (130-400) 05/12/25 07:49
Abs Immat Gran (auto) 0.0 10^3/uL (0-0.05) 05/09/25 13:35
Neutrophils % 81.4 % (42.2-75.2) H 05/09/25 13:35
Allergy/AdvReac Type Severity Reaction Status Date / Time
pollen extracts Allergy [facility] Verified 05/09/25 17:54
ALLERGIES-sneezing,
watery eyes
Physical Exam
General: Well Developed and Well Nourished
HEENT: Normocephalic
Respiratory: Non Labored Respirations
Cardiac: Regular Rhythm
Breast: Deferred by me
GI: Soft, Tender (TTP in the RLQ), Incisions and Other (Minimally distended)
Rectal: Deferred by Provider
Musculoskeletal: No Clubbing and No Cyanosis
Skin: Warm and Dry
Neuro: Awake, Alert, Oriented and AO x 3
Hematologic/Lymphatic: No Lymphadenopathy
Psych: Calm
Assessment / Plan
-
84 yo F presenting with weeks of fatigue, iron-deficient anemia, and a likely new R sided obstructing colon cancer discovered on imaging and endoscopy, awaiting pathology. Her current vitals are appropriate. She is well appearing, in NAD, with a
soft, minimally distended abdomen with slight TTP in the RLQ. She tolerated the colonoscopy prep and a CLD and does not endorse nausea/vomiting which would suggest that she is not clinically obstructed. Despite this, she has a near-obstructing tumor
that needs to be resected this admission. She should, in the meantime, complete her staging workup with chest imaging.
#Obstructing right colon mass
- Plan for OR for R colectomy Tuesday 05/[address] Walker
- NPOpMN evening of 05/14
- Ensure active T&S
- Continue bASA through perioperative period
- Please obtain CT chest and send CEA
- Colorectal surgery will continue to follow
Plan not finalized until attending attestation
[2025-05-12] MEDS: PROTONIX 40 MG PO (20:52)
[2025-05-12] MEDS: SINEQUAN 100 MG PO (20:52)
[2025-05-12] MEDS: OCEAN, SALINE MIST 1 SPRAYS NASAL (21:20)
[2025-05-12] MEDS: ANESTHETIC LOZENGE 1 LOZENGE PO (21:48)
--- NOTE | 2025-05-13 07:23 | W.PN.HOSP.TC ---
Addendum entered and electronically signed by Jefferson Villanueva MD 05/13/25 14:24:
Symptomatic acute on chronic blood loss anemia
S/p 1 unit PRBC with appropriate improvement
Completed C-scope on 05/12/2025, noted ulcerative lesion, per GI consistent with likely malignancy
Colorectal surgery planning for operative intervention
CT abdomen pelvis with contrast demonstrating thickening at the ascending colon/ileum along with local lymph node enlargement
--Likely findings consistent with neoplasm follow-up on C-scope biopsy result
-Daughter at bedside updated of findings and plan
Hyponatremia, resolved
Vitamin D
Continue supplementation
Original Note:
Today's Communication/Plan
-
see a/p
Assessment / Plan
Assessment / Plan
Assessment/plan
#Abdominal pain with obstructing tumor in ascending colon
-Colonoscopy performed 05/12 with findings above, S/p biopsy pending
-CT abdomen pelvis was ordered on presentation demonstrated thickening at the ascending colon/ileum along with lymph node enlargement
-Patient was further worked up with a colonoscopy with findings above suspicious for malignancy
-CEA pending
-Colorectal input appreciated, plan for OR for right colectomy Tuesday 05/[address] Walker
-CT chest for staging per colorectal surgery
-Continue on clears
-Pain medication with tramadol
-GI input appreciated
#Symptomatic acute on chronic blood loss anemia
-Likely secondary to colorectal mass
-S/p 1 units in ED with improvement of hemoglobin
-GI following, colonoscopy done with plan as above
-s/p IV Protonix, now stopped
-Follow CBC
-Transfuse for hemoglobin <7
#Anxiety and depression
-Continue doxepin
#Acute urinary retention
-Continue Flomax
#Essential hypertension
#History of migraine
#Lymphedema
#carotid artery stenosis
#GERD
#endometrial carcinoma s/p hysterectomy
#non-Hodgkin lymphoma
#squamous cell carcinoma of skin (s/p Mohs surgery)
CODE STATUS DNR
DVT prophylaxis SCDs
Anticipated Discharge: > 48 hours
Subjective/Interval History
-
Patient seen and examined at bedside. Denies acute issues overnight
Objective Data
-
Labs:
Laboratory Results
05/13/25
06:00
WBC Pending
Hgb Pending
Hct Pending
Plt Count Pending
Sodium Pending
Potassium Pending
Chloride Pending
Carbon Dioxide Pending
BUN Pending
Creatinine Pending
Glucose Pending
Calcium Pending
Vital Signs:
Vital Signs
Temp Pulse Resp BP Pulse Ox
98.2 F 97 18 98/57 98
05/12/25 23:00 05/12/25 23:00 05/12/25 23:00 05/12/25 23:00 05/12/25 23:00
I&O
05/12/25 05/13/25 05/14/25
06:59 06:59 06:59
Intake Total 360 / 360 2530 / 2530
Balance 360 / 360 2530 / 2530
Review of Systems
-
All other systems: Reviewed and negative (Except as documented)
Physical Exam
-
General: Well Developed and No Apparent Distress
HEENT: Normocephalic
Respiratory: Clear to Auscultation
Cardiac: Regular Rhythm and S1/S2
GI: Soft, Nontender and Nondistended
Neuro: Awake, Alert, Oriented and AO x 3
Psych: Calm
[2025-05-13 07:25] VITALS: BP 113/67
--- NOTE | 2025-05-13 08:57 | W.PN.GI.CBS2 ---
Today's Communication / Plan
-
trend CBC, CT chest, plan OR Thursday, GI signing off
Assessment / Plan
-
#Occult GI Bleed
#YAMILETH #Symptomatic Anemia
#Abnormal CT Imaging (Cecal/Ascending colonic wall thickening- c/f neoplasm)
#Constipation #Nausea 2/2 #Increased Stool [place]
Ms Mack is a 84 y.o female with a past medical history of lymphedema, carotid artery stenosis, endometrial carcinoma (s/p hysterectomy), and non-Hodgkin lymphoma who presented to the ED with symptomatic anemia. Denies any prior dark and/or bloody
stools during this time but notes progressive weakness and fatigue where she had outpatient labs demonstrating a Hgb 8s. She denies any prior hx of GI bleeding in the past. No prior EGD, but reports her last colonoscopy was approximately 10 years
ago. Otherwise, she denies any unintentional weight loss. Labs in ED found to have a Hgb 8s and labs consistent with iron deficiency anemia. Given her worsening abdominal discomfort and bloating CT imaging was also obtained. CT Abd/pelvis 05/09
revealed cecal and ascending colonic wall thickening concerning for a neoplastic process with numerous right lower quadrant mesenteric lymphadenopathy along with mild to moderate fecal burden. Given her symptomatic anemia and concern for her change
in bowel habits with constipation, and CT imaging highly concerning for colonic malignancy resulting in an occult GI bleed.
Cscope done 05/12 by me showed ascending colon mass, ulcerated, obstructing. Suspect malignancy, less likely ischemia.
Recommendations:
- no need PPI I stopped it
- CBC/CEA pending; monitor Hb daily
- CT chest per CRS please obtain for staging
- Plan surgery on Thu
- Path should be finalized Thu AM I will follow this up
GI will sign off
Please call with ?s
Subjective
Subjective
Date of Service: May 13, 2025
no issues overnight
Objective
Data Reviewed
Laboratory Data:
Laboratory Results
Total Bilirubin 0.5 mg/dl (0.2-1.3) 05/09/25 13:35
AST 20 U/L (14-36) 05/09/25 13:35
ALT 16 U/L (0-35) 05/09/25 13:35
Alkaline Phosphatase 122 U/L (38-126) 05/09/25 13:35
Vital Signs and I&O:
Vital Signs
Temp Pulse Resp BP Pulse Ox
98.2 F 92 16 113/67 95
05/13/25 07:25 05/13/25 07:25 05/13/25 07:25 05/13/25 07:25 05/13/25 07:25
I&O
05/12/25 05/13/25 05/14/25
06:59 06:59 06:59
Intake Total 360 / 360 2530 / 2530
Balance 360 / 360 2530 / 2530
Physical Exam
Physical Exam
GI: Non Distended and Non Tender
[2025-05-13 09:06] LABS: Hematocrit 28.8 % (37.0-47.0); Hemoglobin 9.1 g/dL (12.0-16.0); Mean Corp Hgb Conc. 31.6 g/dL (33.0-37.0); Mean Corpuscular Volume 74.6 fL (81.0-99.0); Platelet Count 262 10^3/uL (130-400); Red Cell Dist. Width 17.5 % (11.5-14.5)
[2025-05-13] MEDS: ZYRTEC 10 MG PO (09:35)
[2025-05-13] MEDS: LYRICA 25 MG PO ×3 (09:35→21:07)
[2025-05-13] MEDS: PROTONIX PO (09:35)
[2025-05-13] MEDS: FLOMAX 0.4 MG PO (09:35)
[2025-05-13] MEDS: RESTASIS 0.05% OPHTHALMIC EMULSION 1 DROPS BOTH EYES ×2 (09:35→21:07)
[2025-05-13 09:43] LABS: Blood Urea Nitrogen 5 mg/dl (7-17); Calcium 8.2 mg/dl (8.4-10.2); Carbon Dioxide 22 mmol/L (22-30); Chloride 109 mmol/L (98-107); Estimated Creatinine Clearance 46 ml/min; Glucose 87 mg/dl (70-99); Potassium 3.9 mmol/L (3.5-5.1); Sodium 137 mmol/L (135-145); eGFR > 60.00
[2025-05-13 10:07] LABS: CEA 2.32 ng/ml
[2025-05-13] MEDS: ULTRAM 50 MG PO (10:26)
[2025-05-13] MEDS: NSS IV (11:20)
[2025-05-13] MEDS: DRISDOL (VITAMIN D2) PO (11:21)
[2025-05-13 16:00] VITALS: BP 148/83
--- NOTE | 2025-05-13 16:52 | W.PN.SURGUPD ---
Surgical Update
Surgical Update
Pt seen and examined at bedside, she is without abdominal pain currently, passing flatus but no BM's today. No n/v. +Anorexia.
Reviewed CT results with her at bedside. No metastatic disease on Chest CT which was preformed today. CEA low at 2.32.
Given these findings, she would like to move forward with plans for surgery on Thursday for robotic right hemicolectomy with Dr Walker.
Will continue clear liquid diet until surgery. NPO after MN on 05/15 OR Thursday. Will check type and screen in AM for upcoming surgery.
[2025-05-13] MEDS: SINEQUAN 100 MG PO (21:08)
[2025-05-13] MEDS: AMBIEN 10 MG PO (22:59)
[2025-05-13 23:15] VITALS: BP 105/56
[2025-05-14 07:35] VITALS: BP 114/68
--- NOTE | 2025-05-14 08:16 | W.PN.HOSP.TC ---
Addendum entered and electronically signed by Jefferson Villanueva MD 05/14/25 13:56:
Symptomatic acute on chronic blood loss anemia
S/p 1 unit PRBC with appropriate improvement
Completed C-scope on 05/12/2025, noted ulcerative lesion, per GI consistent with likely malignancy
Colorectal surgery planning for operative intervention with robotic hemicolectomy
CT abdomen pelvis with contrast demonstrating thickening at the ascending colon/ileum along with local lymph node enlargement
--Likely findings consistent with neoplasm follow-up on C-scope biopsy result
CT chest without evidence of malignacy
Hyponatremia, resolved
Vitamin D
Continue supplementation
Original Note:
Today's Communication/Plan
-
see a/p
Assessment / Plan
Assessment / Plan
Assessment/plan
#Abdominal pain with obstructing tumor in ascending colon
-Colonoscopy performed 05/12 with findings above, S/p biopsy pending
-CT abdomen pelvis was ordered on presentation demonstrated thickening at the ascending colon/ileum along with lymph node enlargement
-Patient was further worked up with a colonoscopy with findings above suspicious for malignancy
-CEA 2.32
-GI input appreciated
-Colorectal input appreciated, plan for OR for right hemicolectomy 05/[address] Walker
-CT chest 05/13/2025-there is no evidence for pulmonary metastatic disease
-Continue on clears, n.p.o. at midnight for tomorrow
-Pain medication with tramadol
#Symptomatic acute on chronic blood loss anemia
-Likely secondary to colorectal mass
-S/p 1 units in ED with improvement of hemoglobin
-GI followed, now signed off, colonoscopy done with plan as above
-s/p IV Protonix, now discontinued
-Follow CBC
-Transfuse for hemoglobin <7
#Anxiety and depression
-Continue doxepin
#Acute urinary retention
-Continue Flomax
#Essential hypertension
#History of migraine
#Lymphedema
#carotid artery stenosis
#GERD
#endometrial carcinoma s/p hysterectomy
#non-Hodgkin lymphoma
#squamous cell carcinoma of skin (s/p Mohs surgery)
CODE STATUS DNR
DVT prophylaxis SCDs
Contacted daughter. Discussed CT results with daughter (Nancy) including plan for OR tomorrow
Anticipated Discharge: > 48 hours
Subjective/Interval History
-
Date of Service: May 14, 2025
Objective Data
-
Labs:
Laboratory Results
05/14/25
07:58
WBC Pending
Hgb Pending
Hct Pending
Plt Count Pending
Sodium Pending
Potassium Pending
Chloride Pending
Carbon Dioxide Pending
BUN Pending
Creatinine Pending
Glucose Pending
Calcium Pending
Vital Signs:
Vital Signs
Temp Pulse Resp BP Pulse Ox
98.0 F 81 16 114/68 95
05/14/25 07:35 05/14/25 07:35 05/14/25 07:35 05/14/25 07:35 05/14/25 07:35
I&O
05/13/25 05/14/25 05/15/25
06:59 06:59 06:59
Intake Total 2529 / 2529
Balance 2529 / 2529
Review of Systems
-
All other systems: Reviewed and negative (Except as documented)
Physical Exam
-
General: Well Developed and No Apparent Distress
HEENT: Normocephalic
Respiratory: Clear to Auscultation
Cardiac: Regular Rhythm and S1/S2
GI: Soft, Nontender and Nondistended
Neuro: Awake, Alert, Oriented and AO x 3
Psych: Calm
[2025-05-14 08:22] LABS: Hematocrit 27.2 % (37.0-47.0); Hemoglobin 8.7 g/dL (12.0-16.0); Mean Corp Hgb Conc. 32.0 g/dL (33.0-37.0); Mean Corpuscular Volume 74.7 fL (81.0-99.0); Nucleated Red Blood Cells % 0 %; Platelet Count 226 10^3/uL (130-400); Red Cell Dist. Width 17.8 % (11.5-14.5)
[2025-05-14] MEDS: LYRICA 25 MG PO ×3 (08:36→20:59)
[2025-05-14] MEDS: ZYRTEC 10 MG PO (08:36)
[2025-05-14] MEDS: FLOMAX 0.4 MG PO (08:36)
[2025-05-14] MEDS: RESTASIS 0.05% OPHTHALMIC EMULSION 1 DROPS BOTH EYES ×2 (08:36→20:57)
[2025-05-14 08:51] LABS: Blood Urea Nitrogen 3 mg/dl (7-17); Calcium 8.3 mg/dl (8.4-10.2); Carbon Dioxide 25 mmol/L (22-30); Chloride 109 mmol/L (98-107); Estimated Creatinine Clearance 46 ml/min; Glucose 82 mg/dl (70-99); Magnesium 1.7 mg/dl (1.6-2.3); Potassium 3.6 mmol/L (3.5-5.1); Sodium 139 mmol/L (135-145); eGFR > 60.00
[2025-05-14 15:45] VITALS: BP 122/81
[2025-05-14] MEDS: OCEAN, SALINE MIST 1 SPRAYS NASAL (17:24)
[2025-05-14] MEDS: ANESTHETIC LOZENGE 1 LOZENGE PO (17:24)
[2025-05-14] MEDS: ULTRAM 50 MG PO (17:34)
[2025-05-14] MEDS: SINEQUAN 100 MG PO (20:59)
[2025-05-14] MEDS: AMBIEN 10 MG PO (22:28)
[2025-05-14 23:08] VITALS: BP 127/66
[2025-05-15] VITALS (34 sets, daily range): BP systolic 72–140; BP diastolic 41–95
[2025-05-15 05:32] LABS: Hematocrit 26.8 % (37.0-47.0); Hemoglobin 8.6 g/dL (12.0-16.0); Mean Corp Hgb Conc. 32.1 g/dL (33.0-37.0); Mean Corpuscular Volume 74.4 fL (81.0-99.0); Platelet Count 238 10^3/uL (130-400); Red Cell Dist. Width 17.7 % (11.5-14.5)
[2025-05-15 05:39] LABS: INR 1.25; PT 16.0 Sec (11.4-14.6)
[2025-05-15 05:40] LABS: APTT 33.7 Sec (23.4-35.0)
[2025-05-15 05:54] LABS: Blood Urea Nitrogen 4 mg/dl (7-17); Calcium 8.4 mg/dl (8.4-10.2); Carbon Dioxide 26 mmol/L (22-30); Chloride 109 mmol/L (98-107); Estimated Creatinine Clearance 53 ml/min; Glucose 89 mg/dl (70-99); Potassium 3.7 mmol/L (3.5-5.1); Sodium 137 mmol/L (135-145); eGFR > 60.00
--- NOTE | 2025-05-15 07:05 | W.PN.HOSP.TC ---
Addendum entered and electronically signed by Malachi Jesus MD 05/15/25 23:56:
Attending Addendum-
I saw and evaluated the patient. I reviewed the resident�s note and agree with findings and plan as documented in the resident�s note. Sub: Seen with daughter present and post op. Has not passed gas yet. Tolerating clears. Pain in abd well
controlled. No NV fevers chills. Full 12 point ROS reviewed and negative except as documented Exam: Vitals reviewed in chart GEN-NAd heart RRR lungs clear abd incision CDI pos BS LE no edema
Plan:
#Abdominal pain with obstructing tumor in ascending colon
-Colonoscopy performed 05/12-bx showing- Invasive adenocarcinoma, poorly differentiated.
-CT abdomen pelvis was ordered on presentation demonstrated thickening at the ascending colon/ileum along with lymph node enlargement
-CEA 2.32
-GI input appreciated
-s/p robotic right hemicolectomy 05/15 Dr. Walker
-CT chest 05/13/2025-there is no evidence for pulmonary metastatic disease
-Continue on clears ADAT
-Pain medication with tramadol
#Symptomatic acute on chronic blood loss anemia
-Likely secondary to colorectal mass
-S/p 1 unit in ED with improvement of hemoglobin
-GI followed, now signed off, colonoscopy done with plan as above
-Follow CBC
-Transfuse for hemoglobin <7
#Anxiety and depression
-Continue doxepin
#Acute urinary retention
-Continue Flomax
#Essential hypertension
#History of migraine
#Lymphedema
#carotid artery stenosis
#insomnia-cont zolpidem
#PN- cont lyrica
#GERD
#endometrial carcinoma s/p hysterectomy
#non-Hodgkin lymphoma
#squamous cell carcinoma of skin (s/p Mohs surgery)
CODE STATUS DNR
DVT prophylaxis SCDs
Dispo PT OT eval - P
ACP
Patient consented to discuss, was with daughter, time spent explanation of advance directives, changes in health status, patient�s health care wishes if the patient becomes unable to make health decisions, goals of care, code status, and prognosis
'im not sure what ill do but we will see'- 16 minutes
Time spent coordinating care, review of plan of care with resident, personally reviewed previous records in EMR, med rec, labs, radiology, d/w nursing, family total time documented is exclusive of any additional time listed that was spent in advance
care planning discussion -� 52 minutes
Original Note:
Today's Communication/Plan
-
- hemicolectomy today
Assessment / Plan
Assessment / Plan
Assessment/plan
#Abdominal pain with obstructing mass in ascending colon
-Colonoscopy performed 05/12 with findings above, S/p biopsy pending
-CT abdomen pelvis was ordered on presentation demonstrated thickening at the ascending colon/ileum along with lymph node enlargement
-Patient was further worked up with a colonoscopy with findings above suspicious for malignancy
-CEA 2.32
-GI input appreciated
-Colorectal input appreciated, plan for OR for right hemicolectomy, today, 05/[address] Walker
-CT chest 05/13/2025-there is no evidence for pulmonary metastatic disease
-Pain medication with tramadol
#Symptomatic acute on chronic blood loss anemia
-Likely secondary to colorectal mass
-S/p 1 units in ED with improvement of hemoglobin
-Follow CBC
-Transfuse for hemoglobin <7
#Anxiety and depression
-Continue doxepin
#Acute urinary retention
-Continue Flomax
#Essential hypertension
#History of migraine
#Lymphedema
#carotid artery stenosis
#GERD
#endometrial carcinoma s/p hysterectomy
#non-Hodgkin lymphoma
#squamous cell carcinoma of skin (s/p Mohs surgery)
CODE STATUS DNR
DVT prophylaxis SCDs
Contacted daughter. Discussed CT results with daughter (Nancy) including plan for OR tomorrow
Anticipated Discharge: > 48 hours
Subjective/Interval History
-
Date of Service: May 15, 2025
84 yo F who presented with abdominal pain and lightheadedness, heme-positive stool in ED, then colonoscopy found to have a large obstructing mass concerning for tumor.
She will be taken for hemicolectomy today.
doing well this am.
Objective Data
-
Labs:
Laboratory Results
05/15/25
05:07
WBC 8.2
Hgb 8.6 L
Hct 26.8 L
Plt Count 238
PT 16.0 H
INR 1.25
APTT 33.7
Sodium 137
Potassium 3.7
Chloride 109 H
Carbon Dioxide 26
BUN 4 L
Creatinine 0.6
Glucose 89
Calcium 8.4
Vital Signs:
Vital Signs
Temp Pulse Resp BP Pulse Ox
98.6 F 108 14 127/66 97
05/14/25 23:08 05/14/25 23:08 05/14/25 23:08 05/14/25 23:08 05/14/25 23:08
I&O
05/14/25 05/15/25 05/16/25
06:59 06:59 06:59
Intake Total 1760 / 1760 1200 / 1200
Balance 1760 / 1760 1200 / 1200
Review of Systems
-
History Source: Patient
Constitutional: Reports No Symptoms
Respiratory: Reports No Symptoms
Cardiac: Reports No Symptoms
Abdomen/GI: Reports Bloated (bloating is improved)
Musculoskeletal: Reports No Symptoms
Skin: Reports No Symptoms
Neuro: Reports No Symptoms
Physical Exam
-
General: No Apparent Distress
HEENT: Normocephalic and Atraumatic
Respiratory: Clear to Auscultation
Cardiac: Regular Rhythm and S1/S2
GI: Soft and Nontender
Skin: Warm
Neuro: Awake and Alert
--- NOTE | 2025-05-15 13:27 | W.OR.COLCA ---
Colon Cancer Post Op Note
Immediate Post Op
Primary Surgeon: Víctor Walker MD
Coffee Urn Attendant: AUGUSTINA Cuba and Willam Yu MD, PGYIV
Pre-op Diagnosis: Right colon cancer
Post-op Diagnosis: Same
Procedure Performed: Robotic right colectomy with isoperistaltic intracorporeal anastomsosis
Anesthesia Type: GET
Specimen / Cultures: Right colon
Estimated Blood Loss: 18cc
Complications: None
Operative Findings: No evidence of metastatic disease
Bulky tumor of ascending colon
Patient's family updated in recovery room
Colon Resection
Colon Resection
Operation performed with curative intent: Yes
Tumor Location: Ascending Colon
Right Hemicolectomy: Ileocolic and Right Colic
[2025-05-15] MEDS: DILAUDID 0.25 MG IV (15:21)
[2025-05-15] MEDS: LYRICA PO (16:09)
[2025-05-15] MEDS: RESTASIS 0.05% OPHTHALMIC EMULSION BOTH EYES (16:43)
[2025-05-15] MEDS: ZYRTEC PO (16:44)
[2025-05-15] MEDS: NORMOSOL-R/PLASMALYTE-A 1000 IV (16:48)
--- NOTE | 2025-05-15 16:54 | CM ---
NPO for hemicolectomy in OR today.
Will need postop PT OT reordered for dc planing.
Pt transferred postop.
PLAn PT OT evals needed
[2025-05-15] MEDS: LYRICA 25 MG PO ×2 (17:33→22:30)
--- NOTE | 2025-05-15 17:45 | PTCARENOTE ---
Pt arrived to [facility]south in a bed. Pt shallow on 2L at 100%. 4 lap sites and 1 low transverse JAYE with glue. 16 pashto vasquez to be removed POD#2 with yellow output. Knee high scds in place. IVF infusing @80cc/hr. Bed locked and in lowest position. Care
ongoing.
[2025-05-15] MEDS: FLOMAX 0.4 MG PO (18:17)
[2025-05-15] MEDS: ULTRAM 50 MG PO (18:17)
[2025-05-15] MEDS: RESTASIS 0.05% OPHTHALMIC EMULSION 1 DROPS BOTH EYES (19:59)
[2025-05-15] MEDS: SINEQUAN 100 MG PO (22:30)
[2025-05-15] MEDS: AMBIEN 10 MG PO (23:04)
[2025-05-16] VITALS (7 sets, daily range): BP systolic 100–136; BP diastolic 48–71; PULSE 91–92; O2SAT 97
[2025-05-16] MEDS: NORMOSOL-R/PLASMALYTE-A 1000 IV (02:16)
[2025-05-16 06:48] LABS: Hematocrit 26.2 % (37.0-47.0); Hemoglobin 8.4 g/dL (12.0-16.0); Mean Corp Hgb Conc. 32.1 g/dL (33.0-37.0); Mean Corpuscular Volume 74.4 fL (81.0-99.0); Platelet Count 229 10^3/uL (130-400); Red Cell Dist. Width 17.7 % (11.5-14.5)
--- NOTE | 2025-05-16 07:07 | W.PN.HOSP.TC ---
Addendum entered and electronically signed by Malachi Jesus MD 05/16/25 22:35:
Attending Addendum-
I saw and evaluated the patient. I reviewed the resident�s note and agree with findings and plan as documented in the resident�s note. Sub: States she has passed gas. Tolerating clears. Mild pain in abd but well controlled. No NV fevers chills. no
BM Full 12 point ROS reviewed and negative except as documented Exam: Vitals reviewed in chart GEN-NAd heart RRR lungs clear abd incision CDI pos BS LE no edema vasquez in palce
Plan:
#Abdominal pain with obstructing tumor in ascending colon
-Colonoscopy performed 05/12-bx showing- Invasive adenocarcinoma, poorly differentiated.
-CT abdomen pelvis was ordered on presentation demonstrated thickening at the ascending colon/ileum along with lymph node enlargement
-CEA 2.32
-GI input appreciated
-s/p robotic right hemicolectomy with anastomosis 05/15 Dr. Walker
-CT chest 05/13/2025-there is no evidence for pulmonary metastatic disease
-Continue on clears ADAT ->fulls
-Pain medication with tramadol
#Symptomatic acute on chronic blood loss anemia
-Likely secondary to colorectal mass
-S/p 1 unit in ED
-GI followed, now signed off
-Follow CBC and trending down
-Transfuse for hemoglobin <7
#Anxiety and depression
-Continue doxepin
#Acute urinary retention
-Continue Flomax
#Essential hypertension
#History of migraine
#Lymphedema
#carotid artery stenosis
#insomnia-cont zolpidem
#PN- cont lyrica
#GERD
#endometrial carcinoma s/p hysterectomy
#non-Hodgkin lymphoma
#squamous cell carcinoma of skin (s/p Mohs surgery)
CODE STATUS DNR
DVT prophylaxis SCDs
Dispo PT OT eval - rec SNF on DC
Time spent coordinating care, review of plan of care with resident, personally reviewed records in EMR, med rec, consults, notes, labs, radiology, d/w nursing � 52 mins
Original Note:
Today's Communication/Plan
-
- monitor abdominal exam
- monitor CBC/Hgb
- f/u colorectal surgery recommendations
Assessment / Plan
Assessment / Plan
Assessment/plan
#Obstructing mass in ascending colon s/p robotic right colectomy with isoperistaltic intracorporeal anastomosis
- POD #1
- currently clear liquid diet
- Patient reports to team that she is passing flatus
- Electrolytes (K+ 4.0) within normal limits
- incisions are clear dry,intact
- Hgb stable at 8.4, no signs of bleeding
- Leukocytosis is likely reactive post-op
- biopsy from colonoscopy on 05/12 showed invasive adenocarcinoma
- f/u pathology report from right colectomy on 05/16
- Pain medication with dilaudid and tramadol
- f/u colorectal surgery recommendations
- monitor CBC
#Symptomatic acute on chronic blood loss anemia
-Likely secondary to colorectal mass
-S/p 1 units in ED with improvement of hemoglobin
-Follow CBC
-Transfuse for hemoglobin <7
#Anxiety and depression
-Continue doxepin
#Acute urinary retention
-Continue Flomax
- Has vasquez from postop
#Essential hypertension
#History of migraine
#Lymphedema
#carotid artery stenosis
#GERD
#endometrial carcinoma s/p hysterectomy
#non-Hodgkin lymphoma
#squamous cell carcinoma of skin (s/p Mohs surgery)
CODE STATUS DNR
DVT prophylaxis SCDs
Anticipated Discharge: 24 - 48 hours
Subjective/Interval History
-
Date of Service: May 16, 2025
84 yo F who found to have obstructing mass in colon, underwent robotic right colectomy with isoperistaltic intracorporeal anastomosis, who is POD#1.
This morning, she reports pain related to the surgical operation. She reports to team that she passed flatus. Denies chest pain, dyspnea.
Vasquez is in place, denies dysuria.
Objective Data
-
Labs:
Laboratory Results
05/16/25
06:05
WBC 13.3 H
Hgb 8.4 L
Hct 26.2 L
Plt Count 229
Sodium Pending
Potassium Pending
Chloride Pending
Carbon Dioxide Pending
BUN Pending
Creatinine Pending
Glucose Pending
Calcium Pending
Hgb 8.4
WBC 13.3 (reactive)
Na 135
K+ 4.0
Cr 0.5
Pathology:
Colonoscopy biopsy:
A. Colon, ascending, �lesion�, biopsy:
- Invasive adenocarcinoma, poorly differentiated.
Note: The biopsy shows infiltrating solid nests of tumor cells, which are focally positive for
SATB2 and moderately positive for CDX-2, and rare cells positive for CK7. The tumor cells are
negative for ER, PAX8 and CK20. The overall findings are compatible with a colonic primary.
MSI testing by immunohistochemistry will be performed and reported in a separate addendum.
Vital Signs:
Vital Signs
Temp Pulse Resp BP Pulse Ox
98.3 F 87 18 134/59 95
05/15/25 23:10 05/15/25 23:10 05/15/25 23:10 05/15/25 23:10 05/15/25 23:10
afebrile overnight, Tmax 98.3
BP 120s-130s/60s
I&O
05/15/25 05/16/25 05/17/25
06:59 06:59 06:59
Intake Total 1200 / 1200 3440 / 3440
Output Total 1280 / 1280
Balance 1200 / 1200 2160 / 2160
Review of Systems
-
History Source: Patient
Constitutional: Reports No Symptoms
EENT: Reports No Symptoms Reported
Respiratory: Reports No Symptoms
Cardiac: Reports No Symptoms
Abdomen/GI: Reports Abdominal Pain (related to surgery)
Genitourinary: Reports No Symptoms
Musculoskeletal: Reports No Symptoms
Skin: Reports No Symptoms
Neuro: Reports No Symptoms
Physical Exam
-
General: No Apparent Distress
HEENT: Normocephalic and Atraumatic
Respiratory: Clear to Auscultation
Cardiac: Regular Rhythm and Other (no murmurs on my exam)
GI: Nondistended, Normal Bowel Sounds and Tender (some tenderness to palpation, but incision sites are clear, dry, intact)
Skin: Warm and Dry
Neuro: Awake and Alert
Psych: Calm
[2025-05-16 07:17] LABS: Blood Urea Nitrogen 7 mg/dl (7-17); Calcium 7.9 mg/dl (8.4-10.2); Carbon Dioxide 25 mmol/L (22-30); Chloride 103 mmol/L (98-107); Estimated Creatinine Clearance 53 ml/min; Glucose 127 mg/dl (70-99); Potassium 4.0 mmol/L (3.5-5.1); Sodium 135 mmol/L (135-145); eGFR > 60.00
[2025-05-16] MEDS: LYRICA 25 MG PO ×3 (10:29→22:37)
[2025-05-16] MEDS: ZYRTEC 10 MG PO (10:29)
[2025-05-16] MEDS: FLOMAX 0.4 MG PO (10:29)
[2025-05-16] MEDS: RESTASIS 0.05% OPHTHALMIC EMULSION 1 DROPS BOTH EYES ×2 (10:30→19:37)
[2025-05-16] MEDS: ULTRAM 50 MG PO (10:36)
--- NOTE | 2025-05-16 14:42 | W.PN.CRS1 ---
Today's Communication / Plan
-
Full liquids
Lovenox
Out of bed
Pathology pending
DC Burrell
Assessment/Plan
-
POD#1 Robotic right colectomy with isoperistaltic intracorporeal anastomsosis
Hgb 8.4 (8.6), WBC 13.3 (8.2)
vitals normal
- Advance diet to full's
- Okay to DC IV fluids when tolerating a diet
- Remove Burrell
- Start Lovenox tonight for DVT prophylaxis. Teds and SCDs in place.
- Trend hemoglobin
- OR pathology pending
- Out of bed as tolerated, physical therapy ordered
- Pain control: Dilaudid as needed, tramadol as needed
Subjective Data
Procedure
05/15/2025- Robotic right colectomy with isoperistaltic intracorporeal anastomsosis
Subjective Data
Date of Service: May 16, 2025
Patient states she is not in any pain. She denies nausea or vomiting. She has been tolerating clears. She has no complaints at this time.
Objective Data
-
Vital Signs
Temp Pulse Resp BP Pulse Ox
98.5 F 94 16 136/68 94
05/16/25 07:18 05/16/25 07:18 05/16/25 07:18 05/16/25 07:18 05/16/25 07:18
Intake & Output
05/15/25 05/16/25 05/17/25
06:59 06:59 06:59
Intake Total 1200 / 1200 3440 / 3440 480 / 480
Output Total 1280 / 1280 750 / 750
Balance 1200 / 1200 2160 / 2160 -270 / -270
Intake:
Oral fluids 1200 / 1200 1920 / 1920 480 / 480
IV fluids (Total) 1520 / 1520
Normosol 360 / 360
Output:
Urine, Burrell 1200 / 1200 750 / 750
Urine, Voided 80 / 80
Other:
Number of approximated MODERATE 3
amounts of urine
Lab Results
05/16/25 06:05
05/16/25 06:05
Physical Exam
-
General: No Acute Distress and AOx3
Abdomen: Soft, Non Distended and Non Tender
Skin: Warm and Dry
Incision: Clear, Dry, Intact
--- NOTE | 2025-05-16 15:14 | CM ---
Addendum entered by Rocky Moran 05/16/25 16:17:
[employer] list provided and explained to patient who will discuss with her daughter and choose 5 preferences for SNF.
Original Note:
POD #1: Ascending colon cancer. Right hemicolectomy. Discharge POC: Therapy recommendation for SNF. Will provide [employer] list and get preferences.
[2025-05-16] MEDS: DILAUDID 0.25 MG IV (16:16)
[2025-05-16] MEDS: NORMOSOL-R/PLASMALYTE-A IV (16:54)
[2025-05-16] MEDS: LOVENOX 40 MG SC (17:03)
[2025-05-16] MEDS: SINEQUAN 100 MG PO (22:37)
[2025-05-16] MEDS: AMBIEN 10 MG PO (22:45)
--- NOTE | 2025-05-17 07:10 | W.PN.HOSP.TC ---
Addendum entered and electronically signed by Malachi Jesus MD 05/17/25 23:10:
Attending Addendum-
I saw and evaluated the patient. I reviewed the resident�s note and agree with findings and plan as documented in the resident�s note. Sub: States she has passed gas. Tolerating clears. Mild pain in abd but well controlled. febrile overnight.
retainig urine feels groggy seen with daughter present. no BM Full 12 point ROS reviewed and negative except as documented Exam: Vitals reviewed in chart GEN-NAd heart RRR lungs clear abd incision CDI pos BS TTP epigastric area no rebound/guarding
LE no edema vasquez in palce Neuro AAO x 3
Plan:
#Abdominal pain with obstructing tumor in ascending colon
-Colonoscopy performed 05/12-bx showing- Invasive adenocarcinoma, poorly differentiated.
-CT abdomen pelvis was ordered on presentation demonstrated thickening at the ascending colon/ileum along with lymph node enlargement
-CEA 2.32
-GI input appreciated
-s/p robotic right hemicolectomy with anastomosis 05/15 Dr. Walker
-CT chest 05/13/2025-there is no evidence for pulmonary metastatic disease
-ADAT
-Pain medication with tramadol
#Symptomatic acute on chronic blood loss anemia
-Likely secondary to colorectal mass
-trending down
-repeat CBC later today
-S/p 1 unit in ED
-Transfuse for hemoglobin <7
#Anxiety and depression
-hold doxepin
# CIMS with fever
- r/o infection
- check URINE, CXR lactate and blood cx
-strat IS for atelectais
# Hyponatremia
- hypovolemic
- check urine na, osm, and serum osm
#Acute urinary retention
-Continue Flomax
-place vasquez
#Essential hypertension
#History of migraine
#Lymphedema
#carotid artery stenosis
#insomnia-hold zolpidem
#PN- cont lyrica
#GERD
#endometrial carcinoma s/p hysterectomy
#non-Hodgkin lymphoma
#squamous cell carcinoma of skin (s/p Mohs surgery)
CODE STATUS DNR
DVT prophylaxis SCDs
Dispo PT OT eval - rec SNF on DC
Time spent coordinating care, review of plan of care with resident, personally reviewed records in EMR, med rec, consults, notes, labs, radiology, d/w nursing daughter and CRS� 54 mins
Original Note:
Today's Communication/Plan
-
- f/u infectious workup
- NS infusion ordered
- encourage incentive spirometry
- PM CBC stable (8.8)
Assessment / Plan
Assessment / Plan
Assessment/plan
# Fever - postoperative
- T 101.1
- Leukocytosis is 11 from 13
- denies infectious symptoms
- incentive spirometry ordered
- infectious workup: CXR, UA, BCx, lactate
#Invasive adenocarcinoma of the ascending colon s/p robotic right colectomy with isoperistaltic intracorporeal anastomosis
- POD #2
- currently full liquid diet, is passing flatus
- Electrolytes (K+ 4.0) remain within normal limits
- incisions are clear dry,intact
- Hgb at 7.7 down from 8.4, but no reported signs of bleeding
- Leukocytosis is 11 down from 13, but overnight fever
- f/u pathology report from right colectomy on 05/16
- CT chest no evidence of metastatic disease
- Pain medication with dilaudid and tramadol
- f/u colorectal surgery recommendations
- monitor CBC
- monitor VS
- ordered tylenol for pain control; lidocaine patch
#Symptomatic acute on chronic blood loss anemia
-Likely secondary to colorectal mass
-S/p 1 units in ED with improvement of hemoglobin
- Hgb at 7.7 down from 8.4, but no reported signs of bleeding
-She was tachycardic to 110s, BP to 100/48
-Follow CBC
-Transfuse for hemoglobin <7
- 3pm CBC and reticulocyte count are stable (8.8, and 0.8%, respectively); can administer lovenox
- ordered heme test of stools
# Hyponatremia
- Na+ 128
- add on serum osmolality
- order urine Na+ and urine osmolality
- based on the serum and urine Na+/osmolality values, ordered 1L NS at 100mL/hr, will recheck BMP in AM
#Anxiety and depression
# Somnolence
- discontinue zolpidem and doxepin
#Acute urinary retention
-Continue Flomax
#Essential hypertension
#History of migraine
#Lymphedema
#carotid artery stenosis
#GERD
#endometrial carcinoma s/p hysterectomy
#non-Hodgkin lymphoma
#squamous cell carcinoma of skin (s/p Mohs surgery)
CODE STATUS DNR
DVT prophylaxis SCDs
Anticipated Discharge: 24 - 48 hours
Subjective/Interval History
-
Date of Service: May 17, 2025
overnight, fever to 101.0 F
advanced to full liquid
vasquez removed but nurse reports she is very somnolent and retaining urine. she was straight cath'd and she didn't even wake up
she's on doxepin, pregabalin, and zolpidem
she tells me she passed flatus this am.
Objective Data
-
Labs:
Laboratory Results
05/17/25
06:00
WBC Pending
Hgb Pending
Hct Pending
Plt Count Pending
Sodium Pending
Potassium Pending
Chloride Pending
Carbon Dioxide Pending
BUN Pending
Creatinine Pending
Glucose Pending
Calcium Pending
WBC 11 from 13.3
Hgb 7.7 from 8.4
Plts 205
Na+ 128
K 3.9
Cr 0.6
glucose 93
Vital Signs:
Vital Signs
Temp Pulse Resp BP Pulse Ox
101.0 F H 112 17 100/48 96
05/16/25 23:15 05/16/25 23:15 05/16/25 23:15 05/16/25 23:15 05/16/25 23:15
overnight Tmax 101
HR at that time 112
I&O
05/16/25 05/17/25 05/18/25
06:59 06:59 06:59
Intake Total 3440 / 3440 960 / 960
Output Total 1280 / 1280 1570 / 1570
Balance 2160 / 2160 -610 / -610
Review of Systems
-
History Source: Patient
Constitutional: Reports No Symptoms
EENT: Reports No Symptoms Reported
Respiratory: Reports No Symptoms
Cardiac: Reports No Symptoms
Abdomen/GI: Reports Abdominal Pain (some pain related to surgery)
Musculoskeletal: Reports No Symptoms
Skin: Reports No Symptoms
Neuro: Reports No Symptoms
Physical Exam
-
General: Comfortable
HEENT: Normocephalic and Atraumatic
Respiratory: Clear to Auscultation
Cardiac: Regular Rhythm and Other (no murmurs on my exam)
GI: Nontender (some tenderness to palpation ), Nondistended, Normal Bowel Sounds and Other (no rebound tenderness, incisions are clean, dry, intact. no erythema appreciated but possibly warm)
Skin: Warm and Dry
Neuro: Other (sleepy but arousable)
Psych: Calm
[2025-05-17 07:25] VITALS: BP 113/50
[2025-05-17 07:41] LABS: Hematocrit 24.3 % (37.0-47.0); Hemoglobin 7.7 g/dL (12.0-16.0); Mean Corp Hgb Conc. 31.7 g/dL (33.0-37.0); Mean Corpuscular Volume 75.0 fL (81.0-99.0); Platelet Count 205 10^3/uL (130-400); Red Cell Dist. Width 18.0 % (11.5-14.5)
[2025-05-17 08:23] LABS: Blood Urea Nitrogen 12 mg/dl (7-17); Calcium 7.8 mg/dl (8.4-10.2); Carbon Dioxide 26 mmol/L (22-30); Estimated Creatinine Clearance 53 ml/min; Glucose 93 mg/dl (70-99); eGFR > 60.00
[2025-05-17 08:32] LABS: Chloride 99 mmol/L (98-107); Potassium 3.9 mmol/L (3.5-5.1); Sodium 128 mmol/L (135-145)
[2025-05-17] MEDS: ZYRTEC 10 MG PO (10:09)
[2025-05-17] MEDS: LYRICA 25 MG PO ×3 (10:10→22:15)
[2025-05-17] MEDS: RESTASIS 0.05% OPHTHALMIC EMULSION 1 DROPS BOTH EYES ×2 (10:10→19:48)
[2025-05-17] MEDS: FLOMAX 0.4 MG PO (10:10)
[2025-05-17] MEDS: ULTRAM 50 MG PO (10:42)
--- NOTE | 2025-05-17 11:00 | CM ---
Met with patient and her daughter at bedside to obtain SNF preferences
Referrals sent to [facility], and [facility] via [employer]
Plan: Discharge to SNF when medically stable pending bed availability and authorization approval
--- NOTE | 2025-05-17 11:32 | W.PN.CRS1 ---
Today's Communication / Plan
-
Regular diet + shakes
Hold lovenox now
Send PM CBC, can restart lovenox if stable
Out of bed
Replace vasquez if patient requires straight cath again
Send UA/UCx with next urine
Incentive spirometry
STOP zolpidem
Pathology pending
Assessment/Plan
-
POD#2 Robotic right colectomy with isoperistaltic intracorporeal anastomosis
Hgb 7.7 (8.4), WBC 11 (13)
Fever overnight, Tmax 101. Remainder of hemodynamics appropriate.
Urinary retention s/p straight cath x2
Increasingly somnolent
- Advance diet to regular
- Ensure nutritional shakes (strawberry) available to patient
- Okay to DC IV fluids when tolerating a diet
- If requires straight cath again, replace vasquez
- Given fever, Send UA/UCx
- Ensure patient has incentive spirometry
- Hold Lovenox given Hgb drift. Teds and SCDs in place.
- Recheck Hgb this afternoon (2pm), if stable can restart VTE ppx
- OR pathology pending
- Out of bed as tolerated, physical therapy ordered
- STOP ambien
- Pain control: Dilaudid as needed, tramadol as needed
Subjective Data
Procedure
05/15/2025- Robotic right colectomy with isoperistaltic intracorporeal anastomsosis
Subjective Data
Date of Service: May 17, 2025
Patient states she has lower abdominal/incisional pain. She reports lethargy. She denies nausea or vomiting. She has been tolerating clears.
Objective Data
-
Vital Signs
Temp Pulse Resp BP Pulse Ox
97.6 F 95 16 113/50 94
05/17/25 07:25 05/17/25 07:25 05/17/25 07:25 05/17/25 07:25 05/17/25 07:25
Intake & Output
05/16/25 05/17/25 05/18/25
06:59 06:59 06:59
Intake Total 3440 / 3440 960 / 960 360 / 360
Output Total 1280 / 1280 1570 / 1570
Balance 2160 / 2160 -610 / -610 360 / 360
Intake:
Oral fluids 1920 / 1920 960 / 960 360 / 360
IV fluids (Total) 1520 / 1520
Normosol 360 / 360
Output:
Urine, Vasquez 1200 / 1200 1150 / 1150
Urine, Voided 80 / 80
Straight cath output 420 / 420
Lab Results
05/17/25 07:13
05/17/25 07:13
Physical Exam
-
General: No Acute Distress and AOx3
Abdomen: Soft, Non Distended and Non Tender
Skin: Warm and Dry
Incision: Clear, Dry, Intact
[2025-05-17 14:55] LABS: Hematocrit 27.6 % (37.0-47.0); Hemoglobin 8.8 g/dL (12.0-16.0); Mean Corp Hgb Conc. 31.9 g/dL (33.0-37.0); Mean Corpuscular Volume 74.4 fL (81.0-99.0); Platelet Count 229 10^3/uL (130-400); Red Cell Dist. Width 18.1 % (11.5-14.5); Reticulocyte Count 0.8 % (0.4-2.8)
[2025-05-17 15:10] VITALS: BP 114/54; BP 119/63; PULSE 92; O2SAT 95
[2025-05-17] MEDS: NSS 1000 IV (16:11)
[2025-05-17] MEDS: LOVENOX 40 MG SC (17:59)
[2025-05-17 23:05] VITALS: BP 121/65
[2025-05-18] MEDS: NSS 1000 IV ×2 (05:51→14:48)
[2025-05-18 05:53] VITALS: BMI 25.1
[2025-05-18 07:05] LABS: Blood Urea Nitrogen 12 mg/dl (7-17); Calcium 7.5 mg/dl (8.4-10.2); Carbon Dioxide 24 mmol/L (22-30); Chloride 105 mmol/L (98-107); Estimated Creatinine Clearance 53 ml/min; Glucose 103 mg/dl (70-99); Potassium 3.8 mmol/L (3.5-5.1); Sodium 132 mmol/L (135-145); eGFR > 60.00
--- NOTE | 2025-05-18 07:09 | W.PN.HOSP.TC ---
Addendum entered and electronically signed by Malachi Jesus MD 05/18/25 22:10:
Attending Addendum-
I saw and evaluated the patient. I reviewed the resident�s note and agree with findings and plan as documented in the resident�s note. Sub: States she has NOT passed gas as she was saying before. Tolerating diet. Has pain in abd but well controlled.
afebrile. feels much less groggy, seen with daughter present. no BM Full 12 point ROS reviewed and negative except as documented Exam: Vitals reviewed in chart GEN-NAd heart RRR lungs clear abd incision CDI pos BS TTP epigastric area no
rebound/guarding LE no edema Neuro AAO x 3
Plan:
#Abdominal pain with obstructing tumor in ascending colon
-Colonoscopy05/12-bx showing- Invasive adenocarcinoma, poorly differentiated.
-s/p robotic right hemicolectomy with anastomosis 05/15 Dr. Walker-POD # 3
-CT chest 05/13/2025-there is no evidence for pulmonary metastatic disease
-ADAT
-Pain medication with tramadol
-OP onc follow UP
#Symptomatic acute on chronic blood loss anemia
-Likely secondary to colorectal mass
-stable
-S/p 1 unit in ED
-Transfuse for hemoglobin <7
#Anxiety and depression
-hold doxepin
# CIMS with fever
- resolved
# Hyponatremia
- hypovolemic
- improved s/p IVF
- BMP in am
#Acute urinary retention
-Continue Flomax
-DC'd vasquez - passed TOV
#Essential hypertension
#History of migraine
#Lymphedema
#carotid artery stenosis
#insomnia-restart zolpidem at 1/2 dose
#PN- cont lyrica
#GERD
#endometrial carcinoma s/p hysterectomy
#non-Hodgkin lymphoma
#squamous cell carcinoma of skin (s/p Mohs surgery)
CODE STATUS DNR
DVT prophylaxis SCDs
Dispo PT OT SNF [place] likely [place]
Time spent coordinating care, review of plan of care with resident, personally reviewed records in EMR, med rec, consults, notes, labs, radiology, d/w nursing daughter and CRS� 51 mins
Original Note:
Today's Communication/Plan
-
- monitor for BM
- monitor CBC, BMP
- follow-up cultures
- encourage out of bed
- f/u colorectal surgery recommendations
Assessment / Plan
Assessment / Plan
Assessment/plan
84 yo F with
#Invasive adenocarcinoma of the ascending colon s/p robotic right colectomy with isoperistaltic intracorporeal anastomosis
- POD #3
- K+ 3.8
- currently regular diet, is passing flatus, no BM yet
- no role for bowel regimen to facilitate BM yet. monitor for BM
- incisions are clear dry,intact
- Hgb stable at 8.8
- Leukocytosis is down to 8
- f/u pathology report from right colectomy on 05/16
- CT chest no evidence of metastatic disease
- Pain medication with dilaudid and tramadol; tylenol and lidocaine patch ordered
- f/u colorectal surgery recommendations
- monitor CBC
- monitor VS
#Symptomatic acute on chronic blood loss anemia
-Likely secondary to colorectal mass
-S/p 1 units in ED at admission on (05/09) with improvement of hemoglobin
- Hgb stable today
-Transfuse for hemoglobin <7
- continue lovenox for dvt ppx
-Follow CBC
- ordered heme test of stools
# Hyponatremia
- Na+ 132 from 128 yesterday
- received 1L NSS yesterday, 100 cc/hr
- re-ordered urine Na+ and urine osmolality
- trend is improving, BMP in the AM
# Fever, postoperative -- resolved
- afebrile overnight
- Leukocytosis resolved, likely reactive in setting of perioperative/postsurgical stress
- denies infectious symptoms
- incentive spirometry
- infectious workup: CXR largely unremarkable; UA culture pending, BCx pending
- follow-up cultures
#Anxiety and depression
# Somnolence
- discontinued zolpidem and doxepin on 05/18
- patient is significantly more easily arousable today
#Acute urinary retention -- resolved
-Continue Flomax
#Essential hypertension
#History of migraine
#Lymphedema
#carotid artery stenosis
#GERD
#endometrial carcinoma s/p hysterectomy
#non-Hodgkin lymphoma
#squamous cell carcinoma of skin (s/p Mohs surgery)
CODE STATUS DNR
DVT prophylaxis SCDs
Disposition: CM sent SNF referrals yesterday, patient is okay with going to SNF first
Anticipated Discharge: 24 - 48 hours
Subjective/Interval History
-
Date of Service: May 18, 2025
patient is more easily rousable, reports some abdominal pain
on full diet, ate chicken, brusselsprouts yesterday pm
reports possibly little flatus, no BM yet
is doing incentive spirometry, denies cough or dysuria
nurse reports that patient is much more interactive
Objective Data
-
Labs:
Laboratory Results
05/18/25 05/18/25
06:12 06:47
WBC Cancelled Pending
Hgb Cancelled Pending
Hct Cancelled Pending
Plt Count Cancelled Pending
Sodium 132 L
Potassium 3.8
Chloride 105
Carbon Dioxide 24
BUN 12
Creatinine 0.6
Glucose 103 H
Calcium 7.5 L
Lactate 1.6
Hgb yesterday evening 8.8
Na+ 132
K+ 3.8
Cr 0.6
Imaging:
CXR 05/17/2025
FINDINGS:
Lines and tubes: None.
Lungs: Mild left basilar airspace opacity. No significant pleural effusions. No visualized pneumothorax.
Heart: Cardiac and mediastinal contours are unremarkable. No overt pulmonary vascular congestion.
Osseous structures: No acute abnormalities.
IMPRESSION:
Mild left basilar atelectasis and/or pneumonia.
Microbiology
- Urine cultures pending
- Blood cultures pending
Vital Signs:
Vital Signs
Temp Pulse Resp BP Pulse Ox
98.7 F 100 18 121/65 98
05/17/25 23:05 05/17/25 23:05 05/17/25 23:05 05/17/25 23:05 05/17/25 23:05
I&O
05/17/25 05/18/25 05/19/25
06:59 06:59 06:59
Intake Total 960 / 960 3780 / 3780
Output Total 1570 / 1570 2100 / 2100
Balance -610 / -610 1680 / 1680
Review of Systems
-
History Source: Patient
Constitutional: Reports No Symptoms
EENT: Reports No Symptoms Reported
Respiratory: Reports No Symptoms
Cardiac: Reports No Symptoms
Abdomen/GI: Reports Abdominal Pain (some pain related to surgery)
Musculoskeletal: Reports No Symptoms
Skin: Reports No Symptoms
Neuro: Reports No Symptoms
Physical Exam
-
General: Comfortable
HEENT: Normocephalic and Atraumatic
Respiratory: Clear to Auscultation
Cardiac: Regular Rhythm and Other (no murmurs on my exam)
GI: Nondistended, Normal Bowel Sounds and Other (some tenderness to palpation along right side, no rebound tenderness, incisions are clean, dry, intact. no erythema appreciated but some warmth)
Skin: Warm and Dry
Neuro: Other (sleepy but arousable)
Psych: Calm
[2025-05-18 07:45] VITALS: BP 130/67
[2025-05-18 08:32] LABS: Hematocrit 26.6 % (37.0-47.0); Hemoglobin 8.3 g/dL (12.0-16.0); Mean Corp Hgb Conc. 31.2 g/dL (33.0-37.0); Mean Corpuscular Volume 75.4 fL (81.0-99.0); Platelet Count 227 10^3/uL (130-400); Red Cell Dist. Width 17.9 % (11.5-14.5)
[2025-05-18] MEDS: LYRICA 25 MG PO ×3 (08:51→21:32)
[2025-05-18] MEDS: RESTASIS 0.05% OPHTHALMIC EMULSION 1 DROPS BOTH EYES ×2 (08:51→21:26)
[2025-05-18] MEDS: ZYRTEC 10 MG PO (08:51)
[2025-05-18] MEDS: FLOMAX 0.4 MG PO (08:51)
[2025-05-18] MEDS: ULTRAM 50 MG PO ×2 (08:53→21:31)
--- NOTE | 2025-05-18 10:55 | CM ---
Addendum entered by Faby Vyas 05/18/25 11:36:
Received call from patient's daughter, Anette. ANABELL shared that [facility] no beds, but [facility] can accept tomorrow if patient is stable. Anette shared after speaking w/ hospitalist, patient will not be ready tomorrow as she has
not had a BM and still has some pain. Likely will be ready for d/c over the or Thursday.
Left a message w/ Reena/ [facility] to inquire on a bed over the weekend
Addendum entered by Faby Vyas 05/18/25 10:58:
Per physician resident, patient will not discharge today
Original Note:
Chart reviewed. Patient being rec for SNF at d/c
SNF referrals were sent yesterday: [facility] accept tomorrow, [facility] has no beds, [facility] no beds
Left message w/ daughter to update, requested a call back
Need updated therapy notes
Will need insurance auth prior to d/c
Plan: SNF
--- NOTE | 2025-05-18 11:03 | W.PN.CRS1 ---
Today's Communication / Plan
-
continue regular diet
follow cultures
OOB
Assessment/Plan
-
POD#3 Robotic right colectomy with isoperistaltic intracorporeal anastomosis
Hgb 8.3 (8.8), WBC 8.7
Afebrile last 24 hours
- Continue regular diet
- Ensure nutritional shakes (strawberry) available to patient
- If requires straight cath again, replace vasquez
- Urine and blood cultures pending
- Ensure patient has incentive spirometry
- Lovenox for DVT prophylaxis. Teds and SCDs in place.
- OR pathology pending
- Out of bed as tolerated, physical therapy ordered
- STOP ambien. Added melatonin PRN.
- Pain control: Dilaudid as needed, tramadol as needed
- Dipso: SNF
Subjective Data
Procedure
05/15/2025- Robotic right colectomy with isoperistaltic intracorporeal anastomsosis
Subjective Data
Date of Service: May 18, 2025
Patient states she did not sleep well last night. She has not had a bowel movement yet. She is not hungry. She is having flatus. She denies pain. Denies nausea or vomiting. She is urinating without difficulty.
Objective Data
-
Vital Signs
Temp Pulse Resp BP Pulse Ox
98.3 F 104 16 130/67 97
05/18/25 07:45 05/18/25 07:45 05/18/25 07:45 05/18/25 07:45 05/18/25 07:45
Intake & Output
05/17/25 05/18/25 05/19/25
06:59 06:59 06:59
Intake Total 960 / 960 3780 / 3780 525 / 525
Output Total 1570 / 1570 2100 / 2100
Balance -610 / -610 1680 / 1680 525 / 525
Intake:
Oral fluids 960 / 960 2280 / 2280 525 / 525
IV fluids (Total) 1500 / 1500
Output:
Urine, Vasquez 1150 / 1150
Urine, Voided 2099 / 2099
Straight cath output 420 / 420
Other:
Number of approximated MODERATE 1
amounts of urine
Number of approximated LARGE 3
amounts of urine
Lab Results
05/18/25 08:23
05/18/25 06:12
Physical Exam
-
General: No Acute Distress and AOx3
Abdomen: Soft, Non Distended and Tender (Mild around incisions)
Skin: Warm and Dry
Incision: Clear, Dry, Intact
[2025-05-18 13:57] VITALS: BP 119/58; PULSE 103; O2SAT 95
[2025-05-18 15:25] VITALS: BP 128/68
[2025-05-18] MEDS: LOVENOX 40 MG SC (18:04)
[2025-05-18] MEDS: MELATONIN 5 MG PO (23:13)
[2025-05-18] MEDS: AMBIEN PO (23:16)
[2025-05-18 23:18] VITALS: BP 124/60
--- NOTE | 2025-05-19 07:11 | W.PN.HOSP.TC ---
Addendum entered and electronically signed by Malachi Jesus MD 05/19/25 21:16:
Attending Addendum-
I saw and evaluated the patient. I reviewed the resident�s note and agree with findings and plan as documented in the resident�s note. Sub: passsing gas but no BM. Tolerating diet. Has significant pain in abd. afebrile. seen with daughter present.
complains of HAWLEY and nausea. no vomiting. Full 12 point ROS reviewed and negative except as documented Exam: Vitals reviewed in chart GEN-NAD heart RRR lungs clear abd incision CDI hypoactive BS TTP epigastric area to light palpation no
rebound/guarding distended LE no edema Neuro AAO x 3
Plan:
#Abdominal pain with obstructing Invasive adenocarcinoma, poorly differentiated.
-Colonoscopy 05/12-bx showing- Invasive adenocarcinoma, poorly differentiated.
-s/p robotic right hemicolectomy with anastomosis 05/15 Dr. Walker-POD # 4
-CT chest 05/13/2025-there is no evidence for pulmonary metastatic disease
-encourage ambulation
-Pain control with aggressive bowel regimen
-continued abd pain with nausea - check obs series 05/19
- appreciate CRS input
-CTM closely
-OP onc follow UP
#Symptomatic acute on chronic blood loss anemia
-Likely secondary to colorectal mass
-stable
-S/p 1 unit in ED
-Transfuse for hemoglobin <7
#Anxiety and depression
-hold doxepin
# Hyponatremia
- hypovolemic
- improving s/p IVF
- BMP in am
#Acute urinary retention
-Continue Flomax
-DC'd vasquez - passed TOV
#Essential hypertension
#History of migraine
#Lymphedema
#carotid artery stenosis
#insomnia-restart zolpidem at 1/2 dose
#PN- cont lyrica
#GERD
#endometrial carcinoma s/p hysterectomy
#non-Hodgkin lymphoma
#squamous cell carcinoma of skin (s/p Mohs surgery)
CODE STATUS DNR
DVT prophylaxis SCDs
Dispo PT OT SNF on DC likely [place] vs home with VN
Time spent coordinating care, review of plan of care with resident, personally reviewed records in EMR, med rec, consults, notes, labs, radiology, d/w nursing daughter and CRS� 52 mins
Original Note:
Today's Communication/Plan
-
- abdominal series x-ray
- milk of magnesia to faciliate BM
- follow CBC, BMP
- continue regular diet
- encourage out of bed/ambulation
Assessment / Plan
Assessment / Plan
Assessment/plan
84 yo F with
#Invasive adenocarcinoma of the ascending colon s/p robotic right colectomy with isoperistaltic intracorporeal anastomosis
- POD #4
- K+ 3.8
- Hgb stable at 8.8 ; Leukocytosis is down to 7.5
- incisions are dry, intact but areas of erythema and intertrigo-like around some of them, also appreciated by colorectal surgery --> topical powder to reduce irritation
- f/u pathology report from right colectomy on 05/16
- CT chest no evidence of metastatic disease
- Pain medication with dilaudid and tramadol; tylenol and lidocaine patch ordered
- currently regular diet, no BM, unclear if patient is passing flatus
- also endorses nausea, will order abdominal series to evaluate for obstruction
- per Colorectal surgery, milk of magnesia to facilitate BM
- f/u colorectal surgery recommendations
- will need oncology follow-up on outpatient
- monitor CBC
- monitor VS
#Symptomatic acute on chronic blood loss anemia
-Likely secondary to colorectal mass
-S/p 1 units in ED at admission on (05/09) with improvement of hemoglobin
- Hgb stable today at 8.2
-Transfuse for hemoglobin <7
- continue lovenox for dvt ppx
- Follow CBC
# Hyponatremia -- improving
- Na+ 133 from 132 yesterday
- follow BMP
- on regular diet
#Anxiety and depression
# Somnolence
- restarted zolpidem on 05/18
- continue to hold doxepin
- patient is significantly more easily arousable today
#Acute urinary retention -- resolved
-Continue Flomax
#Essential hypertension
#History of migraine
#Lymphedema
#carotid artery stenosis
#GERD
#endometrial carcinoma s/p hysterectomy
#non-Hodgkin lymphoma
#squamous cell carcinoma of skin (s/p Mohs surgery)
CODE STATUS DNR
DVT prophylaxis SCDs
Disposition: PT reccomends SNF; CM aware
Anticipated Discharge: 24 - 48 hours
Subjective/Interval History
-
Date of Service: May 19, 2025
eating regular diet, passing flatus (mentioned to me), ambulating, voiding, no BM
reports some nausea
some abdominal pain on right side when coughing
some itchiness along left side
Objective Data
-
Labs:
Laboratory Results
05/19/25
06:24
WBC Pending
Hgb Pending
Hct Pending
Plt Count Pending
Sodium Pending
Potassium Pending
Chloride Pending
Carbon Dioxide Pending
BUN Pending
Creatinine Pending
Glucose Pending
Calcium Pending
WBC 7.5
Hgb 8.2 (8.3, 8.8 prior)
Plt 254
Na+ 133
K+ 3.8
Microbiology
Blood culture - no growth in 24 hrs
Urine culture no growth
Vital Signs:
Vital Signs
Temp Pulse Resp BP Pulse Ox
98.8 F 100 17 124/60 98
05/18/25 23:18 05/18/25 23:18 05/18/25 23:18 05/18/25 23:18 05/18/25 23:18
I&O
05/18/25 05/19/25 05/20/25
06:59 06:59 06:59
Intake Total 3780 / 3780 2284 / 2284
Output Total 2099 / 2099
Balance 1680 / 1680 2284
Review of Systems
-
History Source: Patient
Constitutional: Reports No Symptoms
EENT: Reports No Symptoms Reported
Respiratory: Reports No Symptoms
Cardiac: Reports No Symptoms
Abdomen/GI: Reports Abdominal Pain (some pain related to surgery)
Musculoskeletal: Reports No Symptoms
Skin: Reports No Symptoms
Neuro: Reports No Symptoms
Physical Exam
-
General: Comfortable
HEENT: Normocephalic and Atraumatic
Respiratory: Clear to Auscultation
Cardiac: Regular Rhythm and Other (no murmurs on my exam)
GI: Nondistended, Normal Bowel Sounds and Other (some tenderness to palpation along right side, no rebound tenderness, incisions are clean, dry, intact. some erythema around incision lines today appearing like intertrigo/fungal; some warmth)
Skin: Warm, Dry and Other (some itching around the left flank/incisions; skin around incisions is erythematous as described under GI above)
Neuro: Other (sleepy but arousable)
Psych: Calm
[2025-05-19 07:14] LABS: Hematocrit 25.9 % (37.0-47.0); Hemoglobin 8.2 g/dL (12.0-16.0); Mean Corp Hgb Conc. 31.7 g/dL (33.0-37.0); Mean Corpuscular Volume 74.4 fL (81.0-99.0); Platelet Count 254 10^3/uL (130-400); Red Cell Dist. Width 17.9 % (11.5-14.5)
[2025-05-19 07:33] LABS: Blood Urea Nitrogen 6 mg/dl (7-17); Calcium 8.0 mg/dl (8.4-10.2); Carbon Dioxide 29 mmol/L (22-30); Chloride 103 mmol/L (98-107); Estimated Creatinine Clearance 53 ml/min; Glucose 90 mg/dl (70-99); Potassium 3.8 mmol/L (3.5-5.1); Sodium 133 mmol/L (135-145); eGFR > 60.00
[2025-05-19 07:50] VITALS: BP 122/68
[2025-05-19] MEDS: FLOMAX 0.4 MG PO (08:46)
[2025-05-19] MEDS: LYRICA 25 MG PO ×3 (08:46→22:41)
[2025-05-19] MEDS: ZYRTEC 10 MG PO (08:47)
[2025-05-19] MEDS: RESTASIS 0.05% OPHTHALMIC EMULSION 1 DROPS BOTH EYES ×2 (08:47→20:31)
--- NOTE | 2025-05-19 10:26 | W.PN.CRS1 ---
Today's Communication / Plan
-
milk of magnesia
okay for discharge from our perspective
Assessment/Plan
-
POD#4 Robotic right colectomy with isoperistaltic intracorporeal anastomosis
Hgb 8.2 (8.3), WBC 7.5
vitals normal
- Continue regular diet
- Ensure nutritional shakes (strawberry) available to patient
- If requires straight cath again, replace vasquez
- Blood cultures pending
- Ensure patient has incentive spirometry
- Lovenox for DVT prophylaxis. Teds and SCDs in place.
- OR pathology pending
- Out of bed as tolerated, physical therapy ordered
- STOP ambien. Added melatonin PRN.
- Pain control: Dilaudid as needed, tramadol as needed
- Milk of magnesia x 1
- Dipso: SNF. Okay for discharge from our perspective. Follow up in 2 weeks in the office.
Subjective Data
Procedure
05/15/2025- Robotic right colectomy with isoperistaltic intracorporeal anastomsosis
Subjective Data
Date of Service: May 19, 2025
Patient states she has more energy today. Having flatus. No bowel movements yet. Denies nausea or vomiting. Tolerating a diet.
Objective Data
-
Vital Signs
Temp Pulse Resp BP Pulse Ox
98.9 F 98 18 122/68 96
05/19/25 07:50 05/19/25 07:50 05/19/25 07:50 05/19/25 07:50 05/19/25 07:50
Intake & Output
05/18/25 05/19/25 05/20/25
06:59 06:59 06:59
Intake Total 3780 / 3780 2285 / 2285 240 / 240
Output Total 2100 / 2100
Balance 1680 / 1680 2285 / 2285 240 / 240
Intake:
Oral fluids 2280 / 2280 1085 / 1085 240 / 240
IV fluids (Total) 1500 / 1500 1200 / 1200
Output:
Urine, Voided 2099 / 2099
Other:
Number of approximated MODERATE 1 1
amounts of urine
Number of approximated LARGE 3 1
amounts of urine
Lab Results
05/19/25 06:24
05/19/25 06:24
Physical Exam
-
General: No Acute Distress and AOx3
Abdomen: Soft, Non Distended and Non Tender
Skin: Warm
Wound: No Signs of Infection
Incision: Clear, Dry, Intact
[2025-05-19] MEDS: MILK OF MAGNESIA 30 ML PO (10:40)
[2025-05-19] MEDS: ULTRAM 50 MG PO (13:13)
--- NOTE | 2025-05-19 14:19 | CM ---
Spoke with resident who stated that patient may be medically cleared for d/c today. Spoke with Reena in admissions at [facility] who confirmed bed upon receipt of auth. Spoke with resident again who stated that patient requires further testing and will
not be discharged today. Spoke with patient's daughter who stated that she feels that she may want patient home with VN.
Will discuss plans with family after discharge plan is clear.
Plan: Case management will continue to follow and assist with discharge planning. Home with VN vrs. SNF at [facility].
[2025-05-19 14:40] VITALS: BP 138/68; PULSE 96; O2SAT 97
[2025-05-19 15:10] VITALS: BP 133/65
[2025-05-19] MEDS: DULCOLAX 10 MG RECTAL (17:33)
[2025-05-19] MEDS: LOVENOX 40 MG SC (17:34)
[2025-05-19] MEDS: TYLENOL 650 MG PO (17:35)
[2025-05-19] MEDS: DESENEX/MITRAZOL/ZEASORB 1 APPLIC TOPICAL (17:42)
[2025-05-19] MEDS: AMBIEN 5 MG PO (22:41)
[2025-05-19 23:05] VITALS: BP 136/77
[2025-05-20 07:05] LABS: Hematocrit 25.4 % (37.0-47.0); Hemoglobin 8.0 g/dL (12.0-16.0); Mean Corp Hgb Conc. 31.5 g/dL (33.0-37.0); Mean Corpuscular Volume 73.6 fL (81.0-99.0); Platelet Count 252 10^3/uL (130-400); Red Cell Dist. Width 17.9 % (11.5-14.5)
--- NOTE | 2025-05-20 07:13 | W.PN.HOSP.TC ---
Addendum entered and electronically signed by Kahlil Cruz MD 05/20/25 12:30:
Attending addendum:
I saw and evaluated the patient. I reviewed the resident�s note and agree with findings and plan as documented in the resident�s note.
Patient seen and examined at bedside, denies any chest pain or shortness of breath, still have mild abdominal pain, no nausea, no vomiting, passing gas but still no bowel movement.
Otherwise patient is ambulatory.
Physical exam:
GENERAL : Patient is awake, alert, oriented x3
HEENT: Nonicteric sclerae, PERRLA, EOMI. Oropharynx clear. Moist mucous membranes. Conjunctivae appear well perfused.
CHEST: Chest wall is nontender.
HEART: Regular rate and rhythm without murmurs.
LUNGS: Clear to auscultation bilaterally.
ABDOMEN: Mild tenderness, positive bowel sounds.
RECTAL: Deferred.
SKIN: No rash, no excessive bruising, petechiae, or purpura.
NEUROLOGIC: Cranial nerves II-XII intact without motor/sensory deficit
Assessment/plan:
Cleared by surgery for discharge.
Discharge home with home physical therapy.
Follow-up with PCP/surgery as OP
per colorectal mayi, recommended 1 month of apixaban for DVT ppx.
Original Note:
Today's Communication/Plan
-
- POD#5
- miralax
- encourage ambulation
- per Colorectal surgery, okay to discharge today
Assessment / Plan
Assessment / Plan
Assessment/plan
84 yo F with
#Invasive adenocarcinoma of the ascending colon s/p robotic right colectomy with isoperistaltic intracorporeal anastomosis
- POD #5
- Hgb stable at 8 ; WBC 5.1; K+ 4.1
- incisions are dry, intact but areas of fungal-appearing surrounding erythema.
- tenderness to palpation of abdomen but improved from yesterday's exam
- f/u pathology report from right colectomy on 05/16
- CT chest no evidence of metastatic disease
- Pain medication with dilaudid and tramadol prn; tylenol and lidocaine patch prn
- currently regular diet, had small bowel movement after suppository yesterday, but patient reports was not significant
- f/u CRS recs: okay with polyethylene glycol (ordered) but not magnesium citrate
- awaiting for BM, SNF placement pending
- will need oncology follow-up on outpatient
- will f/u colorectal surgery outpatient
- per colorectal mayi, recommended 1 month of apixaban for DVT ppx
#Symptomatic acute on chronic blood loss anemia
-Likely secondary to colorectal mass
-S/p 1 units in ED at admission on (05/09) with improvement of hemoglobin
- Hgb stable today at 8.0
-Transfuse for hemoglobin <7
- continue lovenox for dvt ppx
- Follow CBC
# Hyponatremia -- improving
- Na+ 134
- follow BMP
- on regular diet
#Anxiety and depression
# Somnolence
- restarted zolpidem on 05/18
- somnolence has resolved
- continue to hold doxepin
#Acute urinary retention -- resolved
-Continue Flomax
#Essential hypertension
#History of migraine
#Lymphedema
#carotid artery stenosis
#GERD
#endometrial carcinoma s/p hysterectomy
#non-Hodgkin lymphoma
#squamous cell carcinoma of skin (s/p Mohs surgery)
CODE STATUS DNR
DVT prophylaxis SCDs
Disposition: PT rec home rehab with VN. discharge today
Anticipated Discharge: Today
Subjective/Interval History
-
Date of Service: May 20, 2025
had a very small bowel movement, not significant, patient describes it as 'practically nothing'
still feels bloated, despite suppository
Objective Data
-
Labs:
Laboratory Results
05/20/25
06:47
WBC 5.1
Hgb 8.0 L
Hct 25.4 L
Plt Count 252
Sodium Pending
Potassium Pending
Chloride Pending
Carbon Dioxide Pending
BUN Pending
Creatinine Pending
Glucose Pending
Calcium Pending
Na+ 134
Cr 0.5
abdominal series x-ray 05/19/2025: dilated colon, but no evidence of obstruction
Vital Signs:
Vital Signs
Temp Pulse Resp BP Pulse Ox
97.7 F 91 16 136/77 93
05/19/25 23:05 05/19/25 23:05 05/19/25 23:05 05/19/25 23:05 05/19/25 23:05
afebrile
I&O
05/19/25 05/20/25 05/21/25
06:59 06:59 06:59
Intake Total 2285 / 2285 840 / 840
Balance 2285 / 2285 840 / 840
Review of Systems
-
History Source: Patient
Constitutional: Reports No Symptoms
EENT: Reports No Symptoms Reported
Respiratory: Reports No Symptoms
Cardiac: Reports No Symptoms
Abdomen/GI: Reports Abdominal Pain (some pain related to surgery) and Other (bloating, but endorses appetite)
Musculoskeletal: Reports No Symptoms
Skin: Reports No Symptoms
Neuro: Reports No Symptoms
Physical Exam
-
General: Comfortable
HEENT: Normocephalic and Atraumatic
Respiratory: Clear to Auscultation
Cardiac: Regular Rhythm and Other (no murmurs on my exam)
GI: Nondistended and Other (some tenderness to palpation along right side, no rebound tenderness, erythema around incision lines appearing like fungus; some warmth; distended abdomen)
Skin: Warm, Dry and Other (skin around incisions is erythematous as described under GI above)
Neuro: Other (sleepy but arousable)
Psych: Calm
[2025-05-20] MEDS: FLOMAX 0.4 MG PO (07:24)
[2025-05-20] MEDS: DESENEX/MITRAZOL/ZEASORB 1 APPLIC TOPICAL (07:24)
[2025-05-20] MEDS: RESTASIS 0.05% OPHTHALMIC EMULSION 1 DROPS BOTH EYES (07:24)
[2025-05-20] MEDS: ZYRTEC 10 MG PO (07:24)
[2025-05-20] MEDS: LYRICA 25 MG PO ×2 (07:24→15:35)
[2025-05-20 07:26] VITALS: BP 113/77
[2025-05-20] MEDS: DRISDOL (VITAMIN D2) 50000 UNITS PO (07:27)
[2025-05-20 07:41] LABS: Blood Urea Nitrogen 6 mg/dl (7-17); Calcium 8.3 mg/dl (8.4-10.2); Carbon Dioxide 29 mmol/L (22-30); Chloride 103 mmol/L (98-107); Estimated Creatinine Clearance 53 ml/min; Glucose 91 mg/dl (70-99); Potassium 4.1 mmol/L (3.5-5.1); Sodium 134 mmol/L (135-145); eGFR > 60.00
[2025-05-20] MEDS: MIRALAX 17 GRAMS PO (09:46)
--- NOTE | 2025-05-20 11:53 | W.PN.CRS1 ---
Today's Communication / Plan
-
dispo planning
Assessment/Plan
-
84 yo female with ascending colon CA
POD#5 Robotic right colectomy with isoperistaltic intracorporeal anastomosis
Labs stable
Blood and urine cx with no growth
AFVSS
Tolerating diet, passing flatus/small stool. No distention. No n/v.
Expect bowel habits to be irregular for the first few weeks after surgery. Do not expect her to be passing more than small stools at this point.
Patient requested mag citrate today, this would be too strong of a laxative post op and not recommended.
Plan:
- Continue regular diet
- Ensure nutritional shakes (strawberry) available to patient
- Ok for miralax daily, MOM x1
- Lovenox for DVT prophylaxis. Teds and SCDs in place. Transition to Eliquis 2.5 upon d/c for first month post op for VTE ppx in setting of malignancy
- OR pathology pending
- OOB/PT/OT following
Ok for d/c from surgical standpoint. Pt OOB to chair. Eager to go home
Subjective Data
Procedure
05/15/2025- Robotic right colectomy with isoperistaltic intracorporeal anastomsosis
Subjective Data
Date of Service: May 20, 2025
Pt seen and examined at bedside with Dr. Higgins. Denies n/v. Tolerating diet. Passed a small stool this am. Passing flatus.
Objective Data
-
Vital Signs
Temp Pulse Resp BP Pulse Ox
98.5 F 125 20 113/77 94
05/20/25 07:26 05/20/25 07:26 05/20/25 07:26 05/20/25 07:26 05/20/25 07:26
Intake & Output
05/19/25 05/20/25 05/21/25
06:59 06:59 06:59
Intake Total 2285 / 2285 840 / 840 720 / 720
Balance 2285 / 2285 840 / 840 720 / 720
Intake:
Oral fluids 1085 / 1085 840 / 840 720 / 720
IV fluids (Total) 1200 / 1200
Other:
Number of approximated MODERATE 1 2 1
amounts of urine
Number of approximated LARGE 1
amounts of urine
Lab Results
05/20/25 06:47
05/20/25 06:47
Physical Exam
-
General: No Acute Distress and AOx3
Abdomen: Soft, Non Distended and Non Tender
Skin: Warm
Wound: No Signs of Infection
Incision: Clear, Dry, Intact
--- NOTE | 2025-05-20 11:55 | CM ---
CM following re: discharge planning.
Reviewed pt's chart, met with pt, spoke to daughter Nancy over the phone and met with daughter Anette to update on discharge plan progress.
According to pt is medically stable to be discharged today. both pt and her daughters are aware, expressed their agreement. IMM reviewed, placed on chart, pt has a copy.
Update PT and OT evaluations from yesterday noted - home PT/OT recommended. Both pt and her daughters are aware, expressed their agreement and they requested [facility] pt had in the past and was very satisfied with services.
A referral to VN made.
Per PT pt will needs a walker, A script for a walker on the chart. PT to issue a walker.
Please fax discharge instructions to [facility] at [phone]
D/C plan: home with [facility] and family support. Daughter Anette to transport.
--- NOTE | 2025-05-20 12:49 | W.DCSUMMARY ---
Addendum entered and electronically signed by Kahlil Cruz MD 05/21/25 08:01:
Attending addendum:
I saw and evaluated the patient. I reviewed the resident�s note and agree with findings and plan as documented in the resident�s note.
Patient seen and examined at bedside, denies any chest pain or shortness of breath, still have mild abdominal pain, no nausea, no vomiting, passing gas but still no bowel movement.
Otherwise patient is ambulatory.
Physical exam:
GENERAL : Patient is awake, alert, oriented x3
HEENT: Nonicteric sclerae, PERRLA, EOMI. Oropharynx clear. Moist mucous membranes. Conjunctivae appear well perfused.
CHEST: Chest wall is nontender.
HEART: Regular rate and rhythm without murmurs.
LUNGS: Clear to auscultation bilaterally.
ABDOMEN: Mild tenderness, positive bowel sounds.
RECTAL: Deferred.
SKIN: No rash, no excessive bruising, petechiae, or purpura.
NEUROLOGIC: Cranial nerves II-XII intact without motor/sensory deficit
Assessment/plan:
Cleared by surgery for discharge.
Discharge home with home physical therapy.
Follow-up with PCP/surgery as OP
per colorectal mayi, recommended 1 month of apixaban for DVT ppx.
Original Note:
Documented by User: Christiano Nielsen MD, Resident 05/20/25 14:14
Discharge Summary
Discharge Data
Date of Admission: 05/09/25
Date of Discharge: 05/20/25
-
Pending Results: No
Hospital Course
Discharging Physician : Kahlil Cruz MD; Christiano Nielsen MD
Disposition : Home with PT at home & [facility]N care
Primary care physician : Bryson Jasso
Principal Discharge diagnosis : Ascending colon cancer s/p hemicolectomy; symptomatic anemia
Chronic Discharge diagnosis : GERD, lymphedema, Carotid artery stenosis (70%), Endometrial carcinoma, Non-hodgkin lymphoma, Squamous cell carcinoma of skin; Gynecological (hysterectomy), Mohs surgery
Hospital Course :
84 yo F PMH presents to the emergency department for evaluation of low hemoglobin and general fatigue on 05/09. Heme-occult stool testing is positive, and Hgb was 8.1. She received 1u pRBC in the ED. CT abdomen/pelvis raised concern for a colon
malignancy. Colonoscopy on 05/12 then revealed an ulcerated, obstructing mass which was found to be adenocarcinoma of the colon. She underwent right robotic hemicolectomy with isoperistaltic intracorporeal anastomosis on 05/15/2025. The procedure
was uncomplicated. By 05/18-05/19, the patient reportedly is passing flatus, ambulating, and tolerating a regular diet. She underwent an abdominal series on 05/19, however, the films revealed dilated colon but reassuringly no evidence of
obstruction. Per Dr. Higgins in colorectal surgery, this imaging is expected in postoperative period and stated that she is medically clear to discharge.
The following problems were addressed during this admission
# Ascending adenocarcinoma of the colon s/p robotic right colectomy with isoperistaltic intracorporeal anastomosis
- Procedure was performed on 05/15/2025.
- Tolerating regular diet, passing flatus, ambulating.
- Per colorectal surgery, start apixaban 2.5mg bid for 1 month for DVT ppx upon discharge in the setting of malignancy.
- Bowel regimen: laxatives are acceptable (miralax, senna), except magnesium citrate
- follow up with PCP in 1 week, and colorectal surgery in 2 weeks
- for erythema surrounding some incisions, likely fungal, over the counter miconazole was advised BID PRN
- The patient was extensively counselled that colorectal surgery, Dr. Higgins, magdalene'ed to discharge today.
#Symptomatic acute on chronic blood loss anemia
-Likely secondary to colorectal mass
- Hgb stable at 8.0
- Follow-up with PCP and colorectal surgery
#Anxiety and depression
- may resume home ambien and doxepin upon discharge
Chronic issues per below
#Essential hypertension
#History of migraine
#Lymphedema
#carotid artery stenosis
#GERD
#endometrial carcinoma s/p hysterectomy
#non-Hodgkin lymphoma
#squamous cell carcinoma of skin (s/p Mohs surgery)
Important imaging findings :
05/09/2025: CT abdomen pelvis
IMPRESSION:
Cecum and ascending colon wall thickening, as described. Although possibly infectious or inflammatory, the overall appearance is more concerning for neoplasm. No evidence of pneumatosis. There are numerous right lower quadrant mesenteric lymph nodes
present measuring up to 1.2 cm. Recommend follow-up colonoscopy.
No evidence of bowel obstruction.
Mild to moderate colonic fecal burden.
Mild sigmoid diverticulosis without acute diverticulitis.
Trace free pelvic fluid.
05/13/2025: Chest CT
IMPRESSION:
Minimal right pleural effusion.
In the posterolateral right upper lobe, small focal area of branching small nodular opacities, most likely small airway disease, which may represent chronic postinflammatory change.
No CT evidence for pulmonary metastatic disease.
05/17/2025: CXR
IMPRESSION:
Mild left basilar atelectasis and/or pneumonia.
05/19/2025: Abominal series x-ray
IMPRESSION:
No active disease within the chest.
Moderate distention of the colon, filled with stool and gas. Couple of mildly distended small bowel loops seen within the pelvis. Findings nonspecific, but nonobstructive in nature. Anastomotic sutures within the right lower quadrant.
Procedure findings :
05/12/2025: colonoscopy
Findings:
- Hemorrhoids were found during retroflexion. The hemorrhoids were
small.
- A few small-mouthed and medium-mouthed diverticula were found in
the sigmoid colon.
- An ulcerated completely obstructing large mass was found in the
ascending colon. The mass was circumferential. No bleeding was
present. Biopsies were taken with a cold forceps for histology.
Area was tattooed with an injection of 0.5 mL of Spot (carbon black)
after saline injection about 5 cm distal on two places. Could be
ischemia but around the ulceration was hard c/w more likely
malignancy as well as location in ascending colon.
Impression:
- Hemorrhoids.
- Diverticulosis in the sigmoid colon.
- Likely malignant completely obstructing tumor in the ascending
colon. Biopsied. Tattooed.
Pathology report from biopsy from 05/12/2025:
A. Colon, ascending, �lesion�, biopsy:
- Invasive adenocarcinoma, poorly differentiated. See note.
Note: The biopsy shows infiltrating solid nests of tumor cells, which are focally positive for
SATB2 and moderately positive for CDX-2, and rare cells positive for CK7. The tumor cells are
negative for ER, PAX8 and CK20. The overall findings are compatible with a colonic primary.
05/15/2025: Right robotic hemicolectomy with isoperistaltic intracorporeal anastomosis
Pre-op Diagnosis: Right colon cancer
Post-op Diagnosis: Right colon cancer
Procedure Performed: Robotic right colectomy with isoperistaltic intracorporeal anastomsosis
Anesthesia Type: GET
Specimen / Cultures: Right colon
Estimated Blood Loss: 18cc
Complications: None
Operative Findings: No evidence of metastatic disease
Bulky tumor of ascending colon
Discharge Plan
-
Patient Disposition: Home with Home Care
Discharge Diagnosis/Procedures: Ascending colon cancer s/p right hemicolectomy; symptomatic anemia
Condition: Good
Diet: Regular
Activity: No strenuous activity
Additional Activity: No lifting over 10lbs (gallon of milk)
Driving Restrictions: No driving for 1 week
Bathing Restrictions: OK to Shower
Other Services: VN, PT and OT
Wound Care: Allow glue to naturally fall off. Do not pick at incisions.
Instructions: Apixaban
Referrals:
Michael Walker MD [Active, ColoRectal] - in two weeks
Bryson Jasso, DO [[facility], Internal Medicine] - in one week
Additional Discharge Medication Instructions: Tylenol as needed for pain. Maximum dose of Tylenol is 4,000mg in 24 hours.
You have been started on Eliquis for DVT prevention for one month. If you develop any bruising or bleeding, or are falling, please stop immediately and notify your provider.
Please avoid magnesium citrate until your appointment with Dr. Walker
You may continue laxatives, including miralax, senna-docusate.
Please continue your home medications as below.
For the topical powder, you may use desenex (miconazole nitrate), which is available over the counter.
Please follow-up with Dr. Walker in 2 weeks. Please meet with your PCP within 1 week.
Prescriptions:
New
Eliquis 2.5 mg tablet
2.5 mg PO BID 30 Days Qty: 60 0RF
Continued
cetirizine [All Day Allergy (cetirizine)] 10 MG tablet
10 mg PO DAILY
sennosides-docusate sodium [Senna-S] 1 EACH tablet
2 ea PO QPM
famotidine 40 mg tablet
40 mg PO DAILY@1200
tramadol 50 mg tablet
50 mg PO Q8HPRN PRN (Reason: moderate pain)
doxepin 100 mg capsule
100 mg PO HS
ergocalciferol (vitamin D2) 1,250 mcg (50,000 unit) capsule
1,250 mcg PO SA
cyclosporine [Restasis] 0.05 % dropperette
1 drp BOTH EYES BID
pregabalin 25 mg capsule
25 mg PO TID
tamsulosin [Flomax] 0.4 mg capsule
0.4 mg PO DAILY Qty: 30 0RF
zolpidem [Ambien] 10 mg Tablet
10 mg PO HS
[place] Saline 0.65 % Aerosol,[place]
1 spray INTRANASAL DAILYPRN PRN (Reason: allergies/dryness)
polyethylene glycol 3350 [HealthyLax] 17 gram powder in packet
17 g PO DAILYPRN PRN (Reason: constipation)
furosemide [Lasix] 20 mg tablet
10 mg PO MOTH
aspirin 81 mg Tablet,Delayed Release (Dr/Ec)
81 mg PO DAILY
Discharge Orders:
Discharge Patient (As Directed); Ordered 05/20/25
Ordered By: Christiano Nielsen
Discharge Date and Time
Discharge Date/Time: 05/20/25 17:35
Print Language: JAPANESE

Documented by User: Kahlil Cruz MD 05/21/25 08:01
Discharge Summary
Discharge Data
Date of Admission: 05/09/25
Date of Discharge: 05/21/25
Discharge Plan
-
Patient Disposition: Home with Home Care
Discharge Diagnosis/Procedures: Ascending colon cancer s/p right hemicolectomy; symptomatic anemia
Condition: Good
Diet: Regular
Activity: No strenuous activity
Additional Activity: No lifting over 10lbs (gallon of milk)
Driving Restrictions: No driving for 1 week
Bathing Restrictions: OK to Shower
Other Services: VN, PT and OT
Wound Care: Allow glue to naturally fall off. Do not pick at incisions.
Instructions: Apixaban
Referrals:
Michael Walker MD [Active, ColoRectal] - in two weeks
Bryson Jasso DO [Family Provider, Internal Medicine] - in one week
Additional Discharge Medication Instructions: Tylenol as needed for pain. Maximum dose of Tylenol is 4,000mg in 24 hours.
You have been started on Eliquis for DVT prevention for one month. If you develop any bruising or bleeding, or are falling, please stop immediately and notify your provider.
Please avoid magnesium citrate until your appointment with Dr. Walker
You may continue laxatives, including miralax, senna-docusate.
Please continue your home medications as below.
For the topical powder, you may use desenex (miconazole nitrate), which is available over the counter.
Please follow-up with Dr. Walker in 2 weeks. Please meet with your PCP within 1 week.
Prescriptions:
New
Eliquis 2.5 mg tablet
2.5 mg PO BID 30 Days Qty: 60 0RF
Continued
cetirizine [All Day Allergy (cetirizine)] 10 MG tablet
10 mg PO DAILY
sennosides-docusate sodium [Senna-S] 1 EACH tablet
2 ea PO QPM
famotidine 40 mg tablet
40 mg PO DAILY@1200
tramadol 50 mg tablet
50 mg PO Q8HPRN PRN (Reason: moderate pain)
doxepin 100 mg capsule
100 mg PO HS
ergocalciferol (vitamin D2) 1,250 mcg (50,000 unit) capsule
1,250 mcg PO SA
cyclosporine [Restasis] 0.05 % dropperette
1 drp BOTH EYES BID
pregabalin 25 mg capsule
25 mg PO TID
tamsulosin [Flomax] 0.4 mg capsule
0.4 mg PO DAILY Qty: 30 0RF
zolpidem [Ambien] 10 mg Tablet
10 mg PO HS
[place] Saline 0.65 % Aerosol,[place]
1 spray INTRANASAL DAILYPRN PRN (Reason: allergies/dryness)
polyethylene glycol 3350 [HealthyLax] 17 gram powder in packet
17 g PO DAILYPRN PRN (Reason: constipation)
furosemide [Lasix] 20 mg tablet
10 mg PO MOTH
aspirin 81 mg Tablet,Delayed Release (Dr/Ec)
81 mg PO DAILY
Discharge Orders:
Discharge Patient (As Directed); Ordered 05/20/25
Ordered By: Christiano Nielsen
Discharge Date and Time
Discharge Date/Time: 05/20/25 17:35
Print Language: JAPANESE
[2025-05-20] MEDS: ULTRAM 50 MG PO (14:02)
[2025-05-20 15:22] VITALS: BP 123/68
--- NOTE | 2025-05-20 15:59 | PTCARENOTE ---
Pt notes she feels stronger today. Walked around unit w/ staff several times. Waiting for daughter to come to take home - eta [phone].
== END 2025-05-20 17:35 | disposition home health service (06) | DRG 330 ==
LOC: 2 SOUTH 17:30
PROVIDERS: Emergency Medicine; Family Medicine; Internal Medicine Gastroenterology; Registered Nurse; Student in an Organized Health Care Education/Training Program; ADMITTING PHYSICIAN Hospitalist; ATTENDING PHYSICIAN General Practice; CONSULT PHYSICIAN Student in an Organized Health Care Education/Training Program; CONSULT PHYSICIAN Surgery; EMERGENCY PHYSICIAN Emergency Medicine; FAMILY PHYSICIAN Internal Medicine
PROC: 30233N1 Transfusion of Nonautologous Red Blood Cells into Peripheral Vein, Percutaneous Approach (ICD-10-PCS; 2025-05-09)
PROC: 0DBK8ZX Excision of Ascending Colon, Via Natural or Artificial Opening Endoscopic, Diagnostic (ICD-10-PCS; 2025-05-12)
PROC: 0DTF4ZZ Resection of Right Large Intestine, Percutaneous Endoscopic Approach (ICD-10-PCS; 2025-05-15)
PROC: 8E0W4CZ Robotic Assisted Procedure of Trunk Region, Percutaneous Endoscopic Approach (ICD-10-PCS; 2025-05-15)
DX: C18.2 Malignant neoplasm of ascending colon (principal); D62 Acute posthemorrhagic anemia; E87.1 Hypo-osmolality and hyponatremia; K56.691 Other complete intestinal obstruction; Z66 Do not resuscitate; K59.09 Other constipation; I89.0 Lymphedema, not elsewhere classified; K21.9 Gastro-esophageal reflux disease without esophagitis; I65.29 Occlusion and stenosis of unspecified carotid artery; K64.9 Unspecified hemorrhoids; K57.30 Diverticulosis of large intestine without perforation or abscess without bleeding; I10 Essential (primary) hypertension; F32.A Depression, unspecified; G89.29 Other chronic pain; R33.8 Other retention of urine; E86.1 Hypovolemia; F41.9 Anxiety disorder, unspecified; G43.909 Migraine, unspecified, not intractable, without status migrainosus; Z79.82 Long term (current) use of aspirin; Z79.899 Other long term (current) drug therapy; Z85.42 Personal history of malignant neoplasm of other parts of uterus; Z85.72 Personal history of non-Hodgkin lymphomas; Z85.828 Personal history of other malignant neoplasm of skin; Z92.3 Personal history of irradiation
CPT/HCPCS: 36415; 71045; 71250; 74022; 74177; 80048; 80053; 81003; 82378; 82728; 83540; 83550; 83605; 83735; 83930; 83935; 84300; 85025; 85027; 85045; 85610; 85730; 86850; 86900; 86901; 86920; 87040; 87086; 88305; 88309; 88341; 88342; 88360; 96374; 97116; 97163; 97167; 97530; 97535; 99284; J1335; P9016; Q9967

== ENCOUNTER → 2025-05-26 11:21 | Outpatient (REF) | payer OTHER, SELFPAY ==
[2025-05-26 16:15] LABS: Hematocrit 28.6 % (37.0-47.0); Hemoglobin 8.8 g/dL (12.0-16.0); Mean Corp Hgb Conc. 30.8 g/dL (33.0-37.0); Mean Corpuscular Volume 76.1 fL (81.0-99.0); Nucleated Red Blood Cells % 0 %; Platelet Count 445 10^3/uL (130-400); Red Cell Dist. Width 19.1 % (11.5-14.5)
[2025-05-26 16:22] LABS: Blood Urea Nitrogen 12 mg/dl (7-17); Calcium 8.8 mg/dl (8.4-10.2); Carbon Dioxide 24 mmol/L (22-30); Chloride 103 mmol/L (98-107); Glucose 95 mg/dl (70-99); Iron 47 ug/dl (37-170); Potassium 4.3 mmol/L (3.5-5.1); Sodium 134 mmol/L (135-145); eGFR > 60.00
[2025-05-26 16:59] LABS: Ferritin 61.9 ng/ml (11.1-264.0)
== END ==
LOC: HWLAB 11:21
PROVIDERS: ATTENDING PHYSICIAN Nurse Practitioner Adult Health
DX: D64.9 Anemia, unspecified (principal); E87.1 Hypo-osmolality and hyponatremia
CPT/HCPCS: 36415; 80048; 82728; 83540; 85025

== ENCOUNTER → 2025-06-05 11:30 | Outpatient (REF) | payer OTHER, SELFPAY ==
[2025-06-05 16:23] LABS: Hematocrit 30.9 % (37.0-47.0); Hemoglobin 9.6 g/dL (12.0-16.0); Mean Corp Hgb Conc. 31.1 g/dL (33.0-37.0); Mean Corpuscular Volume 77.3 fL (81.0-99.0); Nucleated Red Blood Cells % 0 %; Platelet Count 316 10^3/uL (130-400); Red Cell Dist. Width 20.9 % (11.5-14.5)
[2025-06-05 16:28] LABS: Blood Urea Nitrogen 13 mg/dl (7-17); Calcium 9.0 mg/dl (8.4-10.2); Carbon Dioxide 24 mmol/L (22-30); Chloride 103 mmol/L (98-107); Glucose 87 mg/dl (70-99); Potassium 4.5 mmol/L (3.5-5.1); Sodium 133 mmol/L (135-145); eGFR > 60.00
== END ==
LOC: HWLAB 11:30
PROVIDERS: ATTENDING PHYSICIAN Nurse Practitioner Adult Health; FAMILY PHYSICIAN Internal Medicine; REFERRING PHYSICIAN Internal Medicine Hematology & Oncology
DX: D50.9 Iron deficiency anemia, unspecified (principal); E87.1 Hypo-osmolality and hyponatremia
CPT/HCPCS: 36415; 80048; 85025

== ENCOUNTER → 2025-06-14 11:31 | Outpatient (REF) | payer OTHER, SELFPAY ==
[2025-06-14 16:36] LABS: Hematocrit 31.7 % (37.0-47.0); Hemoglobin 10.0 g/dL (12.0-16.0); Mean Corp Hgb Conc. 31.5 g/dL (33.0-37.0); Mean Corpuscular Volume 78.7 fL (81.0-99.0); Nucleated Red Blood Cells % 0 %; Platelet Count 245 10^3/uL (130-400); Red Cell Dist. Width 21.5 % (11.5-14.5)
== END ==
LOC: HWLAB 11:31
PROVIDERS: ATTENDING PHYSICIAN Nurse Practitioner Adult Health
DX: D64.9 Anemia, unspecified (principal)
CPT/HCPCS: 36415; 85025

== ENCOUNTER → 2025-06-28 10:49 | Outpatient (REF) | payer OTHER, SELFPAY ==
[2025-06-28 16:21] LABS: Urine Character Clear (Clear)
[2025-06-28 16:22] LABS: Hematocrit 32.6 % (37.0-47.0); Hemoglobin 10.4 g/dL (12.0-16.0); Mean Corp Hgb Conc. 31.9 g/dL (33.0-37.0); Mean Corpuscular Volume 78.6 fL (81.0-99.0); Nucleated Red Blood Cells % 0 %; Platelet Count 238 10^3/uL (130-400); Red Cell Dist. Width 20.4 % (11.5-14.5)
[2025-06-28 16:32] LABS: ALT (SGPT) 28 U/L (0-35); AST (SGOT) 25 U/L (14-36); Albumin 4.4 g/dl (3.5-5.0); Alkaline Phosphatase 135 U/L (38-126); Blood Urea Nitrogen 12 mg/dl (7-17); Calcium 9.1 mg/dl (8.4-10.2); Carbon Dioxide 27 mmol/L (22-30); Chloride 98 mmol/L (98-107); Glucose 93 mg/dl (70-99); Potassium 4.5 mmol/L (3.5-5.1); Sodium 131 mmol/L (135-145); Total Protein 7.3 g/dl (6.3-8.2); eGFR > 60.00
== END ==
LOC: HWRAD 10:49
PROVIDERS: ATTENDING PHYSICIAN Nurse Practitioner Family
DX: R11.0 Nausea (principal); R63.0 Anorexia; C18.2 Malignant neoplasm of ascending colon; Z90.49 Acquired absence of other specified parts of digestive tract
CPT/HCPCS: 36415; 74018; 80053; 81003; 84443; 85025

== ENCOUNTER → 2025-07-01 10:30 | Outpatient (REF) | payer OTHER, SELFPAY ==
[2025-07-01 11:35] LABS: Blood Urea Nitrogen 10 mg/dl (7-17); Calcium 9.0 mg/dl (8.4-10.2); Carbon Dioxide 27 mmol/L (22-30); Chloride 99 mmol/L (98-107); Glucose 119 mg/dl (70-99); Potassium 4.6 mmol/L (3.5-5.1); Sodium 132 mmol/L (135-145); eGFR > 60.00
== END ==
LOC: REG 10:30
PROVIDERS: ATTENDING PHYSICIAN Nurse Practitioner Family; FAMILY PHYSICIAN Internal Medicine
DX: E87.1 Hypo-osmolality and hyponatremia (principal)
CPT/HCPCS: 36415; 80048

== ENCOUNTER → 2025-07-07 11:20 | Outpatient (REF) | payer OTHER, SELFPAY ==
[2025-07-07 16:20] LABS: ALT (SGPT) 16 U/L (0-35); AST (SGOT) 21 U/L (14-36); Albumin 4.2 g/dl (3.5-5.0); Alkaline Phosphatase 122 U/L (38-126); Blood Urea Nitrogen 12 mg/dl (7-17); Calcium 9.0 mg/dl (8.4-10.2); Carbon Dioxide 27 mmol/L (22-30); Chloride 102 mmol/L (98-107); Glucose 91 mg/dl (70-99); Potassium 4.5 mmol/L (3.5-5.1); Sodium 135 mmol/L (135-145); Total Protein 6.9 g/dl (6.3-8.2); eGFR > 60.00
== END ==
LOC: HWLAB 11:20
PROVIDERS: ATTENDING PHYSICIAN Nurse Practitioner Family; FAMILY PHYSICIAN Internal Medicine
DX: E87.1 Hypo-osmolality and hyponatremia (principal)
CPT/HCPCS: 36415; 80053; 83930; 83935; 84300

== ENCOUNTER → 2025-07-26 11:09 | Outpatient (REF) | payer OTHER, SELFPAY ==
[2025-07-26 16:19] LABS: Blood Urea Nitrogen 14 mg/dl (7-17); Calcium 8.8 mg/dl (8.4-10.2); Carbon Dioxide 28 mmol/L (22-30); Chloride 98 mmol/L (98-107); Glucose 92 mg/dl (70-99); Potassium 4.7 mmol/L (3.5-5.1); Sodium 132 mmol/L (135-145); eGFR > 60.00
== END ==
LOC: HWLAB 11:09
PROVIDERS: ATTENDING PHYSICIAN Nurse Practitioner Family; FAMILY PHYSICIAN Internal Medicine
DX: E87.1 Hypo-osmolality and hyponatremia (principal)
CPT/HCPCS: 36415; 80048

== ENCOUNTER → 2025-08-07 11:48 | Outpatient (REF) | payer OTHER, SELFPAY ==
[2025-08-07 16:32] LABS: Blood Urea Nitrogen 17 mg/dl (7-17); Calcium 8.7 mg/dl (8.4-10.2); Carbon Dioxide 27 mmol/L (22-30); Chloride 101 mmol/L (98-107); Glucose 90 mg/dl (70-99); Potassium 4.2 mmol/L (3.5-5.1); Sodium 130 mmol/L (135-145); eGFR > 60.00
== END ==
LOC: HWLAB 11:48
PROVIDERS: ATTENDING PHYSICIAN Nurse Practitioner Family
DX: E87.1 Hypo-osmolality and hyponatremia (principal)
CPT/HCPCS: 36415; 80048

== ENCOUNTER → 2025-08-31 10:42 | Outpatient (REF) | payer OTHER, SELFPAY ==
[2025-08-31 12:54] LABS: Hematocrit 31.4 % (37.0-47.0); Hemoglobin 9.5 g/dL (12.0-16.0); Mean Corp Hgb Conc. 30.3 g/dL (33.0-37.0); Mean Corpuscular Volume 81.1 fL (81.0-99.0); Nucleated Red Blood Cells % 0 %; Platelet Count 225 10^3/uL (130-400); Red Cell Dist. Width 15.5 % (11.5-14.5)
[2025-08-31 13:26] LABS: Vitamin D, 25-OH*** 23.9 ng/mL (30-80)
[2025-08-31 13:40] LABS: CEA 3.36 ng/ml
[2025-08-31 13:48] LABS: Ferritin 8.6 ng/ml (11.1-264.0)
[2025-08-31 13:56] LABS: ALT (SGPT) 21 U/L (0-35); AST (SGOT) 25 U/L (14-36); Albumin 4.0 g/dl (3.5-5.0); Alkaline Phosphatase 133 U/L (38-126); Blood Urea Nitrogen 14 mg/dl (7-17); Calcium 8.6 mg/dl (8.4-10.2); Carbon Dioxide 28 mmol/L (22-30); Chloride 102 mmol/L (98-107); Glucose 90 mg/dl (70-99); Iron 32 ug/dl (37-170); Potassium 4.6 mmol/L (3.5-5.1); Sodium 135 mmol/L (135-145); Total Protein 6.9 g/dl (6.3-8.2); eGFR > 60.00
[2025-08-31 14:06] LABS: Total Iron Binding Capacity 440 ug/dl (265-497)
== END ==
LOC: HWLAB 10:42
PROVIDERS: ATTENDING PHYSICIAN Internal Medicine Hematology & Oncology; FAMILY PHYSICIAN Internal Medicine
DX: E87.1 Hypo-osmolality and hyponatremia (principal); C18.2 Malignant neoplasm of ascending colon; R79.89 Other specified abnormal findings of blood chemistry; C85.91 Non-Hodgkin lymphoma, unspecified, lymph nodes of head, face, and neck; D64.81 Anemia due to antineoplastic chemotherapy
CPT/HCPCS: 36415; 80053; 82248; 82306; 82378; 82728; 83540; 83550; 85025